=== PATIENT | male | born 1950 | race Caucasian/White ===

== ENCOUNTER → 2018-02-22 09:25 | Outpatient (CLI) | payer MEDICARE, OTHER, BC, SELFPAY ==
--- NOTE | 2018-02-22 09:33 | XR_ITS ---
XR chest 2V HISTORY: Shortness of breath ITS.REASON: SOB ORDERING PHYSICIAN: Julio Barnard PATIENT AGE: 68 years COMPARISON: 02/15/2016 FINDINGS: The cardiomediastinal silhouette and pulmonary vascularity are within normal limits. The lungs are clear without infiltrates, suspicious nodules, or pleural effusions. No acute bony abnormalities. IMPRESSION: No change with no acute finding
== END ==
PROVIDERS: PCP Family Medicine; Visit Provider Family Medicine
DX: R06.02 Shortness of breath (principal)
CPT/HCPCS: 71046

== ENCOUNTER → 2018-02-23 12:36 | Outpatient (CLI) | payer MEDICARE, OTHER, BC, SELFPAY | PROVIDERS: Family Provider Internal Medicine; PCP Family Medicine; Visit Provider Family Medicine | DX: R06.02 Shortness of breath (principal) | CPT/HCPCS: 94060; 94727; 94729 ==

== ENCOUNTER → 2020-09-29 10:42 | Outpatient (CLI) | payer MEDICARE, OTHER, SELFPAY ==
[2020-09-29 12:24] LABS: T4 (Thyroxine) 10.9 ug/dl (5.53-11.0)
[2020-09-29 12:38] LABS: Prostate Specific Ag Screen 2.7 ng/ml (0.0-4.0); Thyroid Stimulating Hormone 1.44 uIU/mL (0.465-4.68)
[2020-10-05 17:41] LABS: Testosterone,Free 5.7 pg/mL (6.6-18.1)
== END ==
PROVIDERS: Visit Provider Urology
DX: R53.83 Other fatigue (principal); Z12.5 Encounter for screening for malignant neoplasm of prostate
CPT/HCPCS: 36415; 84402; 84403; 84436; 84443; G0103

== ENCOUNTER → 2020-10-07 13:22 | Outpatient (CLI) | payer MEDICARE, OTHER, SELFPAY ==
--- NOTE | 2020-10-07 13:22 | CT_ITS ---
PROCEDURE: CT ABDOMEN PELVIS WO CON CLINICAL INDICATION: LEFT FLANK PAIN Lt flank pain [id number] COMPARISON: CT ABDPELW/O CT ABD PELVIS W/O CONTRAST from 06/10/2015 TECHNIQUE: Axial images obtained with sagittal and coronal reformats. All CT scans at the facility use one or more dose reduction, viz: automated exposure control, ma/kV adjustment per patient size (including targeted exams where dose is matched to indication, i.e. head), or iterative reconstruction technique. FINDINGS: LOWER THORAX: Stable 3 mm nodule in the left lower lobe. ABDOMEN & PELVIS: The liver, spleen, and adrenal glands and pancreas have an unremarkable unenhanced appearance. No calcified gallstones. There are small bilateral renal calculi measuring up to 4 mm in the lower pole on the right and 2 mm in the mid polar region on the left. No hydronephrosis. No ureteral calculi. No evidence of appendicitis. No intestinal obstruction or free air. Colonic diverticulosis is present but no evidence of diverticulitis. The prostate is slightly enlarged at 4.8 cm No acute bony findings IMPRESSION: Small bilateral renal calculi. No hydronephrosis. No ureteral calculi. Colonic diverticulosis but no evidence of diverticulitis. Dictated by: Ngero Ramos MD 10/08/2020 10:50 Negro Ramos MD in [place] 10/08/2020 10:50
== END ==
PROVIDERS: Visit Provider Urology
DX: R10.9 Unspecified abdominal pain (principal)
CPT/HCPCS: 74176

== ENCOUNTER 2021-02-23 13:00 | Outpatient (RCR) | payer MEDICARE, OTHER, SELFPAY ==
--- NOTE | 2021-02-18 11:24 | HMH.PTOPEV ---
PT Outpatient Evaluation Rehab PT Outpatient Evaluation Start: 02/18/21 10:50 Freq: Status: Active Protocol: Document 02/18/21 10:50 [email or web address] (Rec: 02/18/21 11:24 PHORNE [id number]) Electronically Signed By Monico Combs, PT 02/18/21 10:50 Outpatient Therapy Subjective History Subjective History Pt is 71 year old male who presents with c/o chronic headaches over last 5 years, intermittent. He reports headaches become much more severe with coughing fits. Pt with c/o neck pain intermittently for many years, but no c/o UE radiculopathy. Pt reports no significant medical hx. Pt reports maternal brain CA. Eval completed by Sandra Younger, SPT . Chief Complaint Pain Symptom Type Ache Symptoms Relieved By Rest/Positioning Symptoms Aggravated By Bending/Stooping,Sneeze/ Coughing Prior Functional Limitations None Current Functional Limitations Bending/Stooping Symptom Description Intermittent Level of pain today (0-10) 1 Pain scale - at its best (0-10) 0 Pain scale - at its worst (0-10) 8 Cervical Eval Palpation Cervical Muscles R CT Junction,L CT Junction,R Upper Trapezius,L Upper Trapezius Cervical/Thoracic Palpation Findings Tenderness Posture Head/C-Spine Posture Sitting Position Neutral Position Flexibility Deficits Upper Trapezius Muscle Length (R) Moderate Tightness,(L) Moderate Tightness Passive Joint Mobility Cervical PIVM Dec: R C2/3 L C2/3 R C3/4 L C3/4 R C4/5 L C4/5 R C5/6 L C5/6 R C6/7 L C6/7 WNL: R OA L OA R AA L AA R C7/T1 L C7/T1 AROM Cervical Spine Extension Active Range of 30 Motion (degrees) Cervical Spine Flexion Active Range of 55 Motion (degrees) Cervical Spine Rig
== END 2021-02-23 13:05 | disposition home or self-care (01) ==
LOC: PT 13:00
PROVIDERS: PCP Internal Medicine; Visit Provider Specialist
DX: R51.9 Headache, unspecified (principal); G89.29 Other chronic pain; M54.2 Cervicalgia
CPT/HCPCS: 97010; 97014; 97110; 97140; 97163; G0283

== ENCOUNTER → 2021-02-23 14:28 | Outpatient (CLI) | payer MEDICARE, OTHER, SELFPAY | PROVIDERS: PCP Internal Medicine; Visit Provider Internal Medicine | DX: Z20.822 Contact with and (suspected) exposure to COVID-19 (principal); U07.1 COVID-19 | CPT/HCPCS: U0003 ==

== ENCOUNTER 2021-03-03 09:12 | Emergency (ER) | payer MEDICARE, OTHER, SELFPAY ==
[2021-03-03 10:01] VITALS: BP 140/79; PULSE 85; RESP 19; TEMP 36.8; O2SAT 98; BMI 27.1
--- NOTE | 2021-03-03 10:08 | HMH.EDUTC ---
[facility] Disposition Clinical Impression: Encounter for laboratory testing for COVID-19 virus Disposition: Home, Self-Care Condition on Discharge: Good Instructions: DI for COVID-19 (Suspected or Confirmed ), Preventing the Spread of Coronavirus Discharge Instructions Additional Instructions: *Monitor Temp, Over the counter Motrin or Tylenol as directed/as needed Tylenol every 4 hours and Motrin every 6 hours (as long as your family doctor has told you that you can take it) for fever or pain. and straight to ER if unable to lower temp less than 101.0 after medication given Follow up IMMEDIATELY for new or worsening symptoms or no Noticeable improvement over the next 48-72 hours. 911 for difficulty breathing or swallowing You were tested for today for COVID19 your test result should be back in the next 24-48 hours, you was given instructions on how to log on the [facility] portal for your results. If you do not have internet or access you may call the [facility]. You was given a handout with instructions for Self Quarantine and Self isolation for while you wait on test results and what to do if they are positive If you are positive the Health Dept will be contacting you also Make sure to take your Vitamins Vit. C Vit D and Zinc if you can take them Referrals: Alireza Brizuela [Primary Care Provider] - As needed Time of Disposition: 10:12 Medical Decision Making - Isauro Inquiry Pt receiving controlled substance: No Isauro was queried for this patient: No Vital Signs: 03/03/21 10:01 Temperature 98.2 F Temperature Source Oral Pulse Rate [Right] 85 Respiratory Rate 19 Blood Pressure [Right Arm] 140/79 Blood Pressure Mean [Right Arm] 99 02 Sat by Pulse Oximetry 98 Orders (Tests/Meds): ORDERS Category Date Time Status Covid-19 Nasal PCR ([facility]) Routine Lab 03/03/21 09:50 Received [facility] HPI - General Stated complaint: covid test Time Seen by Provider: 03/03/21 10:08 Mode of Arrival: Ambulatory Description of Symptoms (Recalled from Triage Doc. by RN): COVID 19 TEST, TESTED LAST MONDAY, WANTS RETEST HEENT Symptoms (Recalled from RN notes): No Resp Symptoms (Recalled from RN notes): No Skin Symptoms (Recalled from RN notes): No MS Symptoms (Recalled from RN notes): No Functional Status (Recalled from RN notes): WNL - History of Present Illness Provider Complaint: Patient states that the he has been fully vaccinated and he tested positive for COVID last week but was just feeling a little tired and that is why they tested him But not had any other symptoms and no longer feeling tired States that he wants to get retested due to daughter just had surgery and he wanted to be able to help her - Related Data Home Medications Medication Instructions Recorded Confirmed No Known Home Medications 02/16/21 02/16/21 Allergies Allergy/AdvReac Type Severity Reaction Status Date / Time No Known Allergies Allergy Verified 03/03/21 10:03 - Worker's Comp Is this a Worker's Comp case?: No [facility] History - Hepatitis A Screen Drug use history?: No High risk sexual behaviors?: No History of sexually transmitted infection?: No Currently employed?: No Childcare worker?: No Do you have indoor plumbing?: Yes Do you have electricity?: Yes Attestation statement:: This patient has been screened for Hepatitis A risk factors. I have reviewed the patient's past medical history: Yes 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: Reports:: Hiatal Hernia, Hyperlipidemia, Kidney Stones, Migraine, Urinary Tract Infection Other 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: Reports: Other Comment: TORREY Other Surgeries: Yes: No Previous Surgery, Cardiac Catheterization Amputation: No Fractures: No - Social History Smoking Status: Never smoker Alcohol Intake: current Alcohol Intake Frequency:: a few times a month Substance Use Type: denies use Occupational Status: retired Housing: house Household Members: spouse Family Hx:: No significant family history ROS Obtained: Yes All
[2021-03-03 10:25] VITALS: BP 140/79; PULSE 85; RESP 19; TEMP 36.8; O2SAT 98
== END 2021-03-03 10:26 | disposition home or self-care (01) ==
PROVIDERS: Emergency Provider Nurse Practitioner; PCP Internal Medicine
DX: U07.1 COVID-19 (principal); R53.1 Weakness; E78.5 Hyperlipidemia, unspecified
CPT/HCPCS: G0463; 99202; U0003

== ENCOUNTER → 2021-03-19 11:06 | Outpatient (CLI) | payer MEDICARE, OTHER, SELFPAY ==
[2021-03-19 13:00] LABS: Blood Urea Nitrogen 15 mg/dl (9-20); Estimated Glomerular Filt Rate 60 ml/min (>60); GFR (African American) 72 ML/MIN (>60)
== END ==
PROVIDERS: Visit Provider Specialist
DX: R51.9 Headache, unspecified (principal)
CPT/HCPCS: 36415; 82565; 84520

== ENCOUNTER → 2021-03-22 09:04 | Outpatient (CLI) | payer MEDICARE, OTHER, SELFPAY ==
--- NOTE | 2021-03-22 09:05 | MR_ITS ---
PROCEDURE: MR HEAD/BRAIN WO/W CON CLINICAL INDICATION: headache with valsava manouvers COMPARISON: No exams were available for comparison TECHNIQUE: Routine multiplanar multi echo sequences are performed without gadolinium enhancement. FINDINGS: Midline shift, mass effect, intracranial hemorrhage, or hydrocephalus is evident. The cerebellopontine angles and cerebellum has an unremarkable appearance. Incidental note made of perivascular dilated spaces. Scattered T2 white matter hyperintensities are present. T2 hyperintensities are also present within the cerebellum centrally and within the gavin. These do not demonstrate restricted diffusion nor do they show enhancement. No enhancing lesions evident. The the pituitary, optic chiasm, corpus callosum, and craniocervical junction have an unremarkable appearance. Lobular area of decreased T1 and increased T2 signal is present in the right transverse sinus at 13 x 6 mm and also on the left at the junction of the transverse sinus and sigmoid sinus at 6 mm which may be due to 2 arachnoid granulations. There is a 3 x 2 cm lesion of the right maxillary sinus mostly isointense on T1 and slightly hyperintense on T2 with some heterogeneous signal. This could represent a complex retention cyst. Solid mass is not excluded. IMPRESSION: 1. No acute intracranial findings. 2. Scattered T2 white matter hyperintensity most commonly seen with ischemic gliotic change from microvascular disease. 3. 3 cm rounded lesion in the right maxillary sinus which may be due to a complex retention cyst versus a solid lesion. Follow-up suggested to confirm stability Dictated by: Negro Ramos MD 03/22/2021 15:00 Negro Ramos MD in [place] 03/22/2021 15:00
== END ==
PROVIDERS: PCP Internal Medicine; Visit Provider Specialist
DX: G89.29 Other chronic pain (principal); R51.9 Headache, unspecified
CPT/HCPCS: 70553; A9576

== ENCOUNTER → 2021-03-25 13:03 | Outpatient (CLI) | payer MEDICARE, OTHER, SELFPAY ==
--- NOTE | 2021-03-25 13:18 | XR_ITS ---
PROCEDURE: XR CERVICAL SPINE 3V CLINICAL INDICATION: neck pain COMPARISON: No exams were available for comparison FINDINGS: Normal alignment. There is degenerative disc disease at C3-C4, C4-C5, C5-C6, and C6-C7. There is 2 mm retrolisthesis of C3. Endplate osteophytes are present at C3-C5 and C6. There is mild head tilt toward the left. Facet hypertrophic changes are present C3-C7. no fracture or dislocation. No lytic or blastic change. Other findings:None. IMPRESSION: Degenerative changes as described above Dictated by: Negro Ramos MD 03/25/2021 14:15 Negro Ramos MD in [place] 03/25/2021 14:15
== END ==
PROVIDERS: PCP Internal Medicine; Visit Provider Specialist
DX: M54.2 Cervicalgia (principal)
CPT/HCPCS: 72040

== ENCOUNTER → 2021-05-10 17:07 | Outpatient (CLI) | payer MEDICARE, OTHER, SELFPAY ==
--- NOTE | 2021-05-10 17:08 | MR_ITS ---
PROCEDURE: MR CERVICAL SPINE WO CON CLINICAL INDICATION: Neck pain with C5-6 radiculopathy COMPARISON: No exams were available for comparison TECHNIQUE: Standard multiplanar multiecho sequences are performed without contrast. 3-D MIP and myelographic images are also rendered and reviewed FINDINGS: There is normal alignment. Craniocervical junction has an unremarkable appearance. C2-C3: There is a small broad-based central and right paracentral disc osteophyte complex causing minimal contour deformity along the anterior right aspect of the cord. C3-C4: Mild concentric bulging disc somewhat eccentric toward the right causing canal stenosis with right lateral recess narrowing and severe right-sided foraminal narrowing. C4-C5: Degenerative disc disease with bulging disc and facet hypertrophic change causing moderate to severe right-sided foraminal narrowing. C5-C6: Degenerative disc disease with bulging disc and prominent facet hypertrophic change with bilateral foraminal narrowing. C6-C7: Degenerative disc disease with bulging disc. C7-T1: Unremarkable. No acute fracture or dislocation. IMPRESSION: Multilevel cervical spondylosis. Please see above for detailed description at each level. No extruded herniated disc. Dictated by: Negro Ramos MD 05/11/2021 12:20 Negro Ramos MD in [place] 05/11/2021 12:20
== END ==
PROVIDERS: PCP Internal Medicine; Visit Provider Specialist
DX: G44.86 Cervicogenic headache (principal); G89.29 Other chronic pain
CPT/HCPCS: 72141; 76376

== ENCOUNTER 2021-05-18 08:00 | Outpatient (RCR) | payer MEDICARE, OTHER, SELFPAY ==
--- NOTE | 2021-04-13 09:50 | HMH.PTOPEV ---
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 Pt reports DE LA TORRE 's 'almost daily', with localized pain at base of skull referring s/s into and around head, as well referred s/s into chelsie. UT mm. Recent xray reveals DDD throughout C- spine. Chief Complaint Pain,Stiff Symptom Type Ache,Throb,Dull Symptoms Relieved By Rest/Positioning,Heat Symptoms Aggravated By Physical Activity,Lifting Prior Functional Limitations Reaching,Lifting,Housework Current Functional Limitations Reaching,Lifting,Housework Symptom Description Constant but Variable Level of pain today (0-10) 2 Pain scale - at its best (0-10) 1 Pain scale - at its worst (0-10) 7 Cervical Eval Palpation Cervical Muscles R Cervical Paraspinal,L Cervical Paraspinal,R Suboccipital,L Suboccipital,R Upper Trapezius,L Upper Trapezius Cervical/Thoracic Palpation Findings Tenderness,Trigger Point, Muscle Guarding Posture Head/C-Spine Posture Sitting Position Flexed Head/C-Spine Posture Standing Position Flexed Flexibility Deficits Upper Trapezius Muscle Length (R) Moderate Tightness,(L) Moderate Tightness Levaetor Scapulae Muscle Length (R) Moderate Tightness,(L) Moderate Tightness Scalene Group Muscle Length (R) Moderate Tightness,(L) Moderate Tightness Passive Joint Mobility Cervical PIVM Dec: R OA L OA R AA L AA R C2/3 L C2/3 R C3/4 L C3/4 R C4/5 L C4/5 R C5/6 L C5/6 R C6/7 L C6/7 R C7/T1
--- NOTE | 2021-05-13 08:41 | HMH.RHREAS ---
Rehab Reassessment Rehab OP Re-assessment Start: 05/13/21 08:26 Freq: Status: Active Protocol: Document 05/13/21 08:26 GALE (Rec: 05/13/21 08:41 OSVALDOROCHELLENICKY [id number]) Electronically Signed By Barry Branch, PT 05/13/21 08:26 Rehab Re-assessment Subjective Subjective Pt reports feeling about 20% better overall related to DE LA TORRE freq., and pain intensity (2-3 /10 on average w/neck pain on VAS). Pt also reports minimal compliance w/HEP Objective Objective Notes CROM: FLX 0-40, EXT 0-35, B SB 0-20, B ROT 0-35 MMT: JOSI. DELTOID 4+/5, B ELBOW,WRIST,HAND WFL TTP: JOSI. UT MM 0-4, JOSI. CERVICAL PARA, SUBOCCIP. 06/29 Assessment Progress Assessment Progressing as Expected Assessment Notes IMPROVED ROM, STRENGTH, AND TTP Patient goals met STG'S 12/30 LTG'S 08/03 Goals Not Met LTG'S 12/01 Plan Plan Pt to continue w/skilled P.T. to make further improvements in CROM, strength, TTP to aloow for optimal function. adding cervical trxn to treament plan in an effort to relieve cervical pain, pressure, cervicogenic HAs Frequency of Therapy 2-3x/wk Duration of therapy 2-4wks Time and Billing Re-Eval Time 15 Re-Eval Billing Units 0 PHYSICIAN CERTIFICATION: I certify the specified therapy services for Christian Pabon are required, authorized, and reviewed every 30 days.
== END 2021-05-18 08:05 | disposition home or self-care (01) ==
LOC: PT 08:00
PROVIDERS: PCP Internal Medicine; Visit Provider Specialist
DX: R51.9 Headache, unspecified (principal); M54.2 Cervicalgia; G89.29 Other chronic pain
CPT/HCPCS: 20560; 97012; 97014; 97035; 97110; 97140; 97163; 97164; G0283

== ENCOUNTER → 2021-06-21 11:56 | Outpatient (CLI) | payer MEDICARE, OTHER, SELFPAY ==
[2021-06-21 13:06] LABS: Alanine Aminotransferase 27 U/L (12-78); Albumin Level 3.8 g/dl (3.5-5.0); Albumin/Globulin Ratio 1.2 (1.1-1.8); Alkaline Phosphatase 78 U/L (38-126); Aspartate Amino Transferase 36 U/L (17-59); Bilirubin,Total 0.4 mg/dl (0.2-1.3); Blood Urea Nitrogen 18 mg/dl (9-20); Calcium 9.5 mg/dl (8.4-10.2); Carbon Dioxide 28 mmol/L (22.0-30.0); Chloride 102 mmol/L (98-107); Estimated Glomerular Filt Rate 60 ml/min (>60); GFR (African American) 72 ML/MIN (>60); Globulin 3.2 g/dL (1.3-3.2); Glucose 116 mg/dl (74-100); Sodium 136 mmol/L (136-145)
== END ==
PROVIDERS: Visit Provider Specialist
DX: R90.89 Other abnormal findings on diagnostic imaging of central nervous system (principal)
CPT/HCPCS: 36415; 80053

== ENCOUNTER → 2021-06-23 13:59 | Outpatient (CLI) | payer MEDICARE, OTHER, SELFPAY ==
--- NOTE | 2021-06-23 13:59 | CT_ITS ---
PROCEDURE: CT SINUS WO/W CON CLINICAL HISTORY: abnormal brain mri The COMPARISON: MR MR HEAD/BRAIN WO/W CON from 03/22/2021 TECHNIQUE: Axial images obtained with sagittal and coronal reformats. All CT scans at the facility use one or more dose reduction, viz: automated exposure control, ma/kV adjustment per patient size (including targeted exams where dose is matched to indication, i.e. head), or iterative reconstruction technique. FINDINGS: There is a slightly hyperdense rounded mass in the right maxillary sinus inferiorly. The jennings are smooth and this is not demonstrate any significant contrast enhancement. The unenhanced density is approximately 50 Hounsfield units. This had a complex appearance on the brain MRI of 03/22/2021 does not appear significantly changed. No sinus wall erosive change or bowing or sclerosis. This may represent a complex retention cyst. Frontal sinuses are unremarkable. There is minimal mucosal thickening of the ethmoid sinuses. The left maxillary sinus has an unremarkable appearance. No sinus air-fluid level. Unremarkable sphenoid sinuses. There is moderate to severe leftward nasal septal deviation involving the anterior membranous septum with narrowing of the nasal canal on the left. No acute fracture or dislocation. There are few small cervical lymph nodes. IMPRESSION: Right maxillary sinus mass may represent a complex retention cyst. No evidence of bony erosive change. Mild sinus disease. Leftward nasal septal deviation of the anterior nasal septum inferiorly with narrowing of the left nasal canal Dictated by: Negro Ramos MD 06/24/2021 13:56 Negro Ramos MD in [place] 06/24/2021 13:56
== END ==
PROVIDERS: PCP Internal Medicine; Visit Provider Specialist
DX: M54.2 Cervicalgia (principal); R93.89 Abnormal findings on diagnostic imaging of other specified body structures
CPT/HCPCS: 70488; Q9967

== ENCOUNTER → 2021-09-10 06:18 | Outpatient (CLI) | payer MEDICARE, OTHER, SELFPAY ==
--- NOTE | 2021-09-10 | CA_ITS ---
APPROVED REPORT Exam: Exercise Treadmill Technologist: Wendy Cordova, Ht: 5 ft 8 in Wt: 206 lbs BSA: 2.07 m2 HR: 68 bpm BP: 145/89 mmHg 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 Medications: XIaflex,,,,, Stress Test Details Test: Dedra HR Resting HR: 70 bpm Max Heart Rate (APMHR): 148.339119 bpm Max HR Achieved: 133 bpm Target HR (85% APMHR): 125.487173 bpm % of APMHR: 89.86 Recovery HR: 119 bpm BP Resting BP: 134/88 mmHg Max BP: 197/76 mmHg Recovery BP: 197.0/76.0 mmHg ECG Clinical Exercise duration: 07:01 min Highest Stage Achieved: Exercise capacity: 7.0 METs Stress ECG Conclusion During dedra protocol pt experinced leg fatigue and SOA. No CP noted. Test Summary REST . . . . . . . Sitting REST . . . . . . . Standing REST 15:50 0.0 0.0 70 . 134/ 88 . . Stage 1 01:00 10.0 1.7 91 . . . . Stage 1 02:00 10.0 1.7 107 . . . . Stage 1 03:00 10.0 1.7 96 . 145/ 80 . . Stage 2 01:00 12.0 2.5 116 . . . . Stage 2 02:00 12.0 2.5 113 . . . . Stage 2 . . . . . . . Stage held Stage 2 03:00 12.0 2.5 125 . 160/ 90 . . Stage 2 . . . . . . . Cardiolite injected Stage 2 04:00 12.0 2.5 130 . 160/ 90 . . Stage 2 . . . . . . . Stage resumed Stage 2 04:01 12.0 2.5 130 . 160/ 90 . Stop exercise at 07:01 RECOVERY 01:00 0.0 0.0 119 . . . . RECOVERY 02:00 0.0 0.0 97 . 197/ 76 . . RECOVERY 03:00 0.0 0.0 92 . 197/ 78 . . RECOVERY 04:00 0.0 0.0 84 . 174/ 79 . . RECOVERY 05:00 0.0 0.0 82 . 161/ 77 . . RECOVERY 06:00 0.0 0.0 82 . 147/ 72 . . RECOVERY 06:08 0.0 0.0 82 . 147/ 72 . . Electronically signed by : Siva Rangel MD 09/10/2021 12:10:51
--- NOTE | 2021-09-10 06:28 | NM_ITS ---
APPROVED REPORT Exam: Nuclear Stress Test Indication: C.P., SOB, FATIGUE Patient Location: Outpatient Stress Tech: Yenny Manuel ME Tech:Kaitlyn Curry, MARY RT(R)(N) Ht: 5 ft 11 in Wt: 200 lbs HR: 70 bpm BP: 134/88 mmHg BSA: 2.11 m2 BMI: 27.8 History: C.P., SOB, FATIGUE Procedure: Patient exercised on Adebayo protocol 7:01 minutes and sec, resting heart rate 70 bpm, resting blood pressure 134/88 mmHg, with exercise maximum heart rate achived was 133 bpm which is Greater than 85 % of the maximum predicted heart rate and blood pressure was 197/76 mmHg. Test was stopped due to FATIGUE. Patient denied any complaint of chest pain. Patient has Adequate exercise capacity, achieved 7.0 METs of workload on treadmill, the blood pressure response to exercise was Adequate. Electrocardiogram Resting electrocardiogram shows sinus rhythm, with exercise there is less than 1.[address] segment depression noted from the baseline EKG. The EKG portion of the exercise there is less than 1.[address] segment depression noted from the baseline EKG. The EKG portion of the exercise Myoview is negative for ischemia. Cardiac Stress and Resting SPECT Images: Cardiac Stress and Resting SPECT images were obtained using technetium 99m Myoview 31.1 mCi stress and 10.50 mCi at rest. Gated SPECT for analysis of segmental wall motion and calculation of ejection fraction also done. Cardiac stress and rest SPECT may show uniform myocardial activity without segmental perfusion abnormality, computer derived ejection fraction 51% with no regional wall motion abnormality, right ventricle is normal size and contractility. Conclusion: 1. The EKG portion of the exercise Myoview is negative for ischemia, patient has adequate exercise capacity achieved 7 METS of workload on treadmill, the blood pressure response to exercise was adequate, there was no exercise-induced chest discomfort. 2. No scintigraphic evidence of reversible ischemia seen, compared to ejection fraction is 51% with no regional wall motion abnormality, right ventricle is normal size and contractility. 3. Normal exercise Myoview study. Electronically signed by : Siva Rangel MD 09/10/2021 12:15:57
== END ==
PROVIDERS: PCP Internal Medicine; Visit Provider Internal Medicine
DX: R07.9 Chest pain, unspecified (principal)
CPT/HCPCS: 78452; 93017; A9502

== ENCOUNTER 2021-12-05 13:29 | Emergency (ER) | payer MEDICARE, OTHER, SELFPAY ==
[2021-12-05 13:45] VITALS: BP 138/89; PULSE 88; RESP 18; TEMP 36.8; O2SAT 98; BMI 28.4
[2021-12-05 13:51] LABS: Adenovirus,PCR Not Detected (NotDetected); Bordetella Pertussis Not Detected (NotDetected); Chlamydophila Pneumoniae, PCR Not Detected (NotDetected); Coronavirus 19, PCR Not Detected (NotDetected); Coronavirus 229E Not Detected (NotDetected); Coronavirus NL63 Not Detected (NotDetected); Coronavirus OC43 Not Detected (NotDetected); Coronovirus HKU1,PCR Not Detected (NotDetected); Human Metapneumovirus Not Detected (NotDetected); Influenza A, PCR Not Detected (NotDetected); Influenza AH1, 2009 Not Detected (NotDetected); Influenza AH1, PCR Not Detected (NotDetected); Influenza AH3,PCR Not Detected (NotDetected); Influenza B, PCR Not Detected (NotDetected); Mycoplasma Pneumoniae, PCR Not Detected (NotDetected); Parainfluenza 1, PCR Not Detected (NotDetected); Parainfluenza 2, PCR Not Detected (NotDetected); Parainfluenza 3, PCR Not Detected (NotDetected); Parainfluenza 4, PCR Not Detected (NotDetected); Respiratory Syncytial Virus Not Detected (NotDetected); Rhinovirus/Enterovirus Not Detected (NotDetected)
--- NOTE | 2021-12-05 13:57 | HMH.EDUTC ---
[facility] [place] Clinical Impression: Encounter for laboratory testing for COVID-19 virus Disposition: Home, Self-Care Condition on Discharge: Good Instructions: DI for COVID-19 (Suspected or Confirmed ), Preventing the Spread of Coronavirus Discharge Instructions Additional Instructions: *Monitor Temp, Over the counter Motrin or Tylenol as directed/as needed Tylenol every 4 hours and Motrin every 6 hours (as long as your family doctor has told you that you can take it) for fever or pain. and straight to ER if unable to lower temp less than 101.0 after medication given *Warm salt water gargles may help to soothe the throat *Throat Lozenges *Warm fluids like tea with honey may help to soothe the throat *Sleep elevated *Humidifier/Vaporizer Make sure to drink plenty of fluids Follow up IMMEDIATELY for new or worsening symptoms or no Noticeable improvement over the next 48-72 hours. 911 for difficulty breathing or swallowing You were tested for today for COVID19 your test result should be back in the next 24-48 hours, your test results will be available for viewing on the [facility] Make sure to take your Vitamins Vit. C Vit D and Zinc if you can take them Referrals: Alireza Brizuela MD [Primary Care Provider] - As needed Time of Disposition: 14:02 Medical Decision Making - Isauro Inquiry Pt receiving controlled substance: No Isauro was queried for this patient: No Vital Signs: 12/05/21 13:45 Temperature 98.2 F Temperature Source Oral Pulse Rate [Right Brachial] 88 Respiratory Rate 18 Blood Pressure [Right Arm] 138/89 Blood Pressure Mean [Right Arm] 105 Blood Pressure Source [Right Arm] Automatic Cuff Blood Pressure Position [Right Arm] Sitting 02 Sat by Pulse Oximetry 98 Oxygen Delivery Method Room Air Orders (Tests/Meds): ORDERS Category Date Time Status Full Resp Panel w/COVID ([facility]) Routine Lab 12/05/21 13:45 Re[place] [facility] [place] - General Stated complaint: covid exposure, body aches, weakness Time Seen by Provider: 12/05/21 13:57 Mode of Arrival: Ambulatory Source of Information: Patient Limitations: No Limitations Description of Symptoms (Recalled from Triage Doc. by RN): PATIENT C/O DECREASED ENERGY. HE STATES HIS TESTED POSITIVE FOR COVID ON MONDAY HEENT Symptoms (Recalled from RN notes): No Resp Symptoms (Recalled from RN notes): No Skin Symptoms (Recalled from RN notes): No MS Symptoms (Recalled from RN notes): No Functional Status (Recalled from RN notes): WNL - History of Present Illness Provider Complaint: Patient states that he has been feeling a little achy and decreased energy and on Monday his tested positive for COVID States that he was worried when he was feeling a little fatigue that he may have it too so he wanted to come in and get checked - Related Data Home Medications Medication Instructions Recorded 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 I have reviewed the patient's past medical history: Yes 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: Reports:: Hiatal Hernia, Hyperlipidemia, Kidney Stones, Migraine, Urinary Tract Infection Other 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: Reports: Other Comment: TORREY, Peyronies disease Other Surgeries: Yes: No Previous Surgery, Cardiac Catheterization, Colonoscopy Amputation: No Fractures: No - Social History Smoking Status: Never smoker Alcohol Intake: current Alcohol Intake Frequency:: a few times a month Substance Use Type: denies use Occupational Status: retired Housing: house Household Members: spouse Family Hx:: No significant family history ROS Obtained: Yes All systems revi
[2021-12-05 14:00] VITALS: BP 138/89; PULSE 88; RESP 18; TEMP 36.8; O2SAT 98
== END 2021-12-05 14:04 | disposition home or self-care (01) ==
PROVIDERS: Emergency Provider Nurse Practitioner; PCP Internal Medicine
DX: Z20.822 Contact with and (suspected) exposure to COVID-19 (principal); R53.83 Other fatigue
CPT/HCPCS: 87581; 87632; 87798; 99212; C9803; G0463; U0003; U0005

== ENCOUNTER 2022-07-01 08:00 | Outpatient (RCR) | payer MEDICARE, OTHER, SELFPAY ==
--- NOTE | 2022-05-26 09:17 | HMH.PTOPEV ---
PT Outpatient Evaluation Rehab PT Outpatient Evaluation Start: 05/26/22 08:29 Freq: Status: Active Protocol: Document 05/26/22 09:03 THONY (Rec: 05/26/22 09:16 THONY [id number]) E-signed By Chris Chan, PT Outpatient Therapy Subjective History Subjective History Patient is a 72 year old male presenting to outpatient PT with reports of cervical spine pain with associated cervicogenic headaches. Symptom onset starting approx 5 years ago that has progressively gotten worse over the past year. Most recent imaging indicates multi -level cervical spondylosis. No other comorbidities to report per patient report. Chief Complaint Pain,Stiff Symptom Type Ache,Dull Symptoms Relieved By Rest/Positioning,Heat Prior Functional Limitations None Current Functional Limitations Reaching,Lifting,Housework Symptom Description Constant but Variable Level of pain today (0-10) 3 Pain scale - at its best (0-10) 2 Pain scale - at its worst (0-10) 9 Cervical Eval Posture Head/C-Spine Posture Sitting Position Neutral Position Head/C-Spine Posture Standing Position Neutral Position Flexibility Deficits Upper Trapezius Muscle Length (R) Moderate Tightness,(L) Moderate Tightness Levaetor Scapulae Muscle Length (R) Moderate Tightness,(L) Moderate Tightness Pectoralis Minor Muscle Length (R) Moderate Tightness,(L) Moderate Tightness Passive Joint Mobility Cervical PIVM Dec: R OA L OA R AA L AA R C2/3 L C2/3 R C3/4 L C3/4 R C4/5 L C4/5 R C5/6 L C5/6 R C6/7 L C6/7 R C7/T1 L C7/T1 AROM Cervical Spine Extension Active Range of 28 Motion (degrees) Cervical Spine Flexion Active Range of 34 Motion (degrees) Cervical Spine Right Lateral Flexion 20 Active Range of Motion (degrees) Cervical Spine Left
--- NOTE | 2022-06-23 09:25 | HMH.RHREAS ---
Rehab Reassessment Rehab OP Re-assessment Start: 06/23/22 09:14 Freq: Status: Active Protocol: Document 06/23/22 09:14 THONY (Rec: 06/23/22 09:20 THONY [id number]) E-signed By Chris Chan, PT Rehab Re-assessment Subjective Subjective Patient reports 40% improvement since start of care. Objective Objective Notes AROM: flx 40; ext 26; SBr 29; SBl 36 Rr 52; Rl 51 MMT: WNL Pain: 1/10 today; 5/10 at worst over past week Neuro: WNL Assessment Progress Assessment Progressing as Expected Assessment Notes Objective improvements as noted above. No reports of radicular symptoms. Patient experiences the most relief with progression of mechanical traction. Patient would benefit from continuiing with skilled PT services in order to address functional limitations with reaching/ overhead lifting activities. Patient goals met STG's Goals Not Met LTG's Revised Goals NA Plan Plan Continue with current POC. Frequency of Therapy 2x/week Duration of therapy 4 weeks Time and Billing Re-Eval Time 16 Re-Eval Billing Units 1 PHYSICIAN CERTIFICATION: I certify the specified therapy services for Christian Pabon are required, authorized, and reviewed every 30 days.
== END 2022-07-01 08:05 | disposition home or self-care (01) ==
LOC: PT 08:00
PROVIDERS: PCP Internal Medicine; Visit Provider Internal Medicine
DX: M54.2 Cervicalgia (principal)
CPT/HCPCS: 97010; 97012; 97014; 97110; 97163; 97164; G0283

== ENCOUNTER 2022-07-02 09:06 | Emergency (ER) | payer MEDICARE, OTHER, SELFPAY ==
[2022-07-02 09:15] VITALS: BP 147/77; PULSE 98; RESP 19; TEMP 37.6; O2SAT 96; BMI 25.4
[2022-07-02 09:27] VITALS: BP 147/77; PULSE 98; RESP 19; TEMP 37.6; O2SAT 96
[2022-07-02 09:34] LABS: UTC Influenza A Antigen Negative (Negative); UTC Influenza B Antigen Negative (Negative)
--- NOTE | 2022-07-02 09:34 | EXP.UTC ---
Discharge Plan Disposition Patient Disposition: Home, Self-Care Condition: Good Prescriptions Prescriptions: No Action Xiaflex 0.9 mg recon soln INTRALESIO Referrals Follow up/Referrals: Alireza Brizuela MD [Primary Care Provider] - See instructions Activity Restrictions/Add. Instructions Additional Instructions/Restrictions: covid swab was sent to lab, call tomorrow for results. self isolate until test results are known to be negative No sign of a bacterial infection. Likely viral. Viruses can take 7-14 days to run their course. Nasal saline and bulb syringe or nose Pamela to remove nasal drainage to help with nasal congestion. Hard to eat, drink, sleep with nasal congestion so important to keep this cleaned out. Monitor temp. Tylenol or Motrin as needed for pain or fever Encourage fluids, water, Gatorade, Powerade, Pedialyte if infant/toddler/child Warm salt water gargles Warm fluids Sore throat lozenges Sleep elevated Humidifier/vaporizer Follow-up immediately for new or worsening symptoms or no noticeable improvement over the next 48-72 hours. Clinical Impressions Clinical Impression: Upper respiratory infection Instructions Patient Instructions: DI for Viral Upper Respiratory Infection -- Adult Discharge ED Provider: Celeste ([facility] [place])[facility]ancy [facility] [place] General Stated complaint: Chest congestion, wheezing, covid test Mode of Arrival: Ambulatory Source of Information: Patient Limitations: No Limitations Time Seen by Provider: 07/02/22 09:34 Description of Symptoms (Recalled from Triage Doc. 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) Smoking Status: Never smoker alcohol intake: current substance use type: denies use current occupational status: retired Travel in the last 8 weeks: None household members: spouse housing: house ROS Obtained: Yes All systems reviewed & no additional complaints except as documented Constitutional Constitutional: Reports system reviewed and no additional complaints, except as documented and Reports as per HPI Eyes Eyes: Reports system reviewed and no additional complaints, except as documented ENT Ears, Nose, Mouth, and Throat: Reports system reviewed and no additional complaints, except as documented and Reports as per HPI Cardiovascular Cardiovascular: Reports system reviewed and no additional complaints, except as documented Respiratory Respiratory: Reports system reviewed and no additional complaints, except as documented and Reports cough Musculoskeletal Musculoskeletal: Reports system reviewed and no additional complaints, except as documented Integumentary/Breasts Skin/Breast: Reports system reviewed and no additional complaints, except as documented Neurologic Neurologic: Reports system reviewed and no additional complaints, except as documented Endocrine
== END 2022-07-02 09:45 | disposition home or self-care (01) ==
PROVIDERS: Emergency Provider Nurse Practitioner Family; PCP Internal Medicine
DX: J06.9 Acute upper respiratory infection, unspecified (principal)
CPT/HCPCS: 87804; 99212; 99213; C9803; G0463; U0003; U0005

== ENCOUNTER → 2022-11-11 11:53 | Outpatient (CLI) | payer MEDICARE, OTHER, SELFPAY ==
[2022-11-11 13:05] LABS: Eosinophils # 0.2 K/mm3 (0.0-0.4); Eosinophils % 3.6 % (0.1-12.0); Hematocrit 44.3 % (42.0-52.0); Hemoglobin 14.3 g/dL (14.1-18.0); Lymphocytes # 1.9 K/mm3 (0.7-4.5); Lymphocytes % 41.1 % (10-50); Mean Corpuscular HGB Conc 32.3 g/dL (31.8-35.4); Mean Corpuscular Hemoglobin 29.3 pg (27.0-31.2); Mean Corpuscular Volume 90.7 fl (80-94); Mean Platelet Volume 8.3 fl (7.4-10.4); Monocytes # 0.3 K/mm3 (0.1-1.0); Monocytes % 7.3 % (1.7-9.3); Neutrophils # 2.2 K/mm3 (1.8-7.8); Platelet Count 301 K/mm3 (142-424); Red Blood Count 4.89 M/mm3 (4.60-6.20); Red Cell Distribution Width 14.2 % (11.5-17.5); White Blood Count 4.6 K/mm3 (4.8-10.8)
[2022-11-11 13:34] LABS: Erythrocyte Sedimentation Rate 20 mm/hr (0-20)
[2022-11-11 13:43] LABS: Anion Gap 18.2 mEq/L (5-15); Blood Urea Nitrogen 16 mg/dl (9-20); Calcium 8.4 mg/dl (8.4-10.2); Carbon Dioxide 25 mmol/L (22.0-30.0); Chloride 101 mmol/L (98-107); Estimated Glomerular Filt Rate 59 ml/min (>60); GFR (African American) 72 ML/MIN (>60); Glucose 123 mg/dl (74-100); Potassium 4.2 mmoL/L (3.5-5.1); Sodium 140 mmol/L (136-145); Uric Acid 6.9 mg/dl (3.5-8.5)
[2022-11-13 08:12] LABS: RA Latex Turbid. 10.1 IU/mL (<14.0)
== END ==
PROVIDERS: PCP Internal Medicine; Visit Provider Internal Medicine
DX: R51.9 Headache, unspecified (principal); M25.50 Pain in unspecified joint; M54.2 Cervicalgia; M15.0 Primary generalized (osteo)arthritis; G47.33 Obstructive sleep apnea (adult) (pediatric)
CPT/HCPCS: 80048; 84550; 85025; 85651; 86431

== ENCOUNTER 2022-12-06 14:15 | Emergency (ER) | payer OTHER, MEDICARE, SELFPAY ==
[2022-12-06] VITALS (9 sets, daily range): BP systolic 117–162; BP diastolic 75–102; PULSE 73–94; RESP 16–18; TEMP 36.7; O2SAT 93–97; BMI 28.1
--- NOTE | 2022-12-06 14:13 | ECG_ITS ---
APPROVED REPORT Exam: Resting ECG HR:86 bpm ECG Measurements Heart Rate 86 AXES MN 157 P 60 QRSd 102 QRS 32 QT 348 T 34 QTc 391 Conclusion SINUS RHYTHM WITH OCCASIONAL VENTRICULAR PREMATURE COMPLEXES BORDERLINE ECG UNCONFIRMED REPORT Electronically signed by : Jamie Rankin MD 12/06/2022 20:01:43
--- NOTE | 2022-12-06 14:25 | XR_ITS ---
FINAL REPORT CLINICAL HISTORY: SOA, fatigue FINDINGS: The heart size is normal. The mediastinum is within normal limits. There is no acute cardiopulmonary process. There is no pleural effusion. There is no pneumothorax. The bony thorax is intact. IMPRESSION: No acute cardiopulmonary process. Reviewed, Interpreted and Dictated by Tj Mar III, MD Transcribed by Johnny Leary Authenticated and . [facility]
--- NOTE | 2022-12-06 14:29 | HMH.EDGENADL ---
Discharge Plan Disposition Patient Disposition: Home, Self-Care Condition: Fair Chief Complaint: Shortness of Breath/Dyspnea Prescriptions Prescriptions: No Action Xiaflex 0.9 mg recon soln INTRALESIO Referrals Follow up/Referrals: Chetan Balderrama MD [Staff Physician] - 12/13/22 (palpitations and [facility] ER w/U (-) needs holter and echo) Provider,Referral, [Referring] - See instructions Clinical Impressions Clinical Impression: Palpitations Discharge ED Provider: Stepan Desouza General Adult HPI General Chief complaint: Shortness of Breath/Dyspnea Stated complaint: chest pain Time Seen by Provider: 12/06/22 15:32 Mode of Arrival: Ambulatory Source of Information: Patient Limitations: No Limitations Description of Symptoms (Recalled from ER Triage Doc. by RN): Pt reports SOA and fatigue feeling today, states did have intermittent chest pain yesterday- no cp today. Pt reports fluttering feeling in his heart reports hx of irregular heart beat. History of Present Illness HPI narrative: This is a 72-year-old white male who presents to the emergency room complaining of intermittent palpitations for the past several days. Patient denied chest pain pressure heaviness cough hemoptysis shortness of breath orthopnea or pedal edema. 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) Smoking Status: Never smoker alcohol intake: current substance use type: denies use current occupational status: retired Travel in the last 8 weeks: None household members: spouse housing: house ROS Obtained: Yes All systems reviewed & no additional complaints except as documented Skin no rash or lesions HEENT no runny nose sore throat Pulmonary no cough or shortness of breath Cardiovascular see HPI GI no abdominal pain nausea or vomiting no dysuria pyuria hematuria Musculoskeletal no neck or back pain Endocrine no polydipsia polyuria or polyphasia Psych no SI or HI The rest of the systems were reviewed and found to be negative Physical Exam Narrative Physical exam: Skin: Warm and dry HEENT: Normocephalic atraumatic extract muscles are intact pupils are equal and reactive to light Neck: Supple nontender Lungs: Clear to auscultation Heart: Regular rate and rhythm Abdomen: NABS soft nontender Extremities: No clubbing cyanosis or edema Neurologic: No unilateral weakness or numbness Lymphatic: No cervical or inguinal adenopathy Musculoskeletal: No tenderness of the dorsal or lumbar spine Psych: No SI or HI General General appearance: alert Respiratory Respiratory exam: Present normal lung sounds bilaterally Cardiovascular Cardiovascular exam: Present regular rate and normal rhythm Neurological Exam Neurological exam: Present alert Medical Decision Making Isauro Inquiry Pt receiving controlled substance: No Vital Signs: 12/06/22 14:17 12/06/22 14:30 12/06/22 15:00 Temperature 98.0 F Temperature Source Oral Pulse Rate 87 82 Pulse Rate [Right Radial] 94 H Respiratory Rate 18 16 Blood Pressure 158/92 H 117/87 Blood Pressure [Right Arm] 162/102 H Blood Pressure Mean 114 97 Blood Pressure Mean [Right Arm] 122 Blood Pressure Source [Right Arm] Automatic Cuff Blood Pressure Position [Right Arm] S
--- NOTE | 2022-12-06 14:30 | PC.NURSE ---
rad at BS for portable xray
[2022-12-06 14:38] LABS: Basophils # 0.1 K/mm3 (0-0.2); Basophils % 0.8 % (0.1-2.0); Eosinophils # 0.2 K/mm3 (0.0-0.4); Hematocrit 46.1 % (42.0-52.0); Hemoglobin 14.9 g/dL (14.1-18.0); Lymphocytes # 2.2 K/mm3 (0.7-4.5); Lymphocytes % 33.3 % (10-50); Mean Corpuscular HGB Conc 32.2 g/dL (31.8-35.4); Mean Corpuscular Hemoglobin 28.3 pg (27.0-31.2); Mean Corpuscular Volume 87.8 fl (80-94); Mean Platelet Volume 7.5 fl (7.4-10.4); Monocytes # 0.5 K/mm3 (0.1-1.0); Monocytes % 7.8 % (1.7-9.3); Neutrophils # 3.7 K/mm3 (1.8-7.8); Neutrophils % 55.1 % (37.0-80.0); Platelet Count 293 K/mm3 (142-424); Red Blood Count 5.25 M/mm3 (4.60-6.20); Red Cell Distribution Width 13.9 % (11.5-17.5); White Blood Count 6.7 K/mm3 (4.8-10.8)
[2022-12-06 14:39] LABS: Chloride 107 mmol/L (98-107)
[2022-12-06 14:40] LABS: Potassium 4.7 mmoL/L (3.5-5.1); Sodium 139 mmol/L (136-145)
[2022-12-06 14:42] LABS: Alanine Aminotransferase 34 U/L (12-78); Albumin Level 3.6 g/dl (3.5-5.0); Alkaline Phosphatase 84 U/L (38-126); Anion Gap 11.7 mEq/L (5-15); Aspartate Amino Transferase 42 U/L (17-59); Bilirubin,Total 0.4 mg/dl (0.2-1.3); Blood Urea Nitrogen 20 mg/dl (9-20); Carbon Dioxide 25 mmol/L (22.0-30.0); Creatinine Clearance Estimated 61 mL/min (50-200); Estimated Glomerular Filt Rate 50 ml/min (>60); GFR (African American) 60 ML/MIN (>60); Globulin 3.6 g/dL (1.3-3.2); Total Protein,Serum 7.2 g/dl (6.3-8.2)
[2022-12-06 14:43] LABS: Glucose 109 mg/dl (74-100); Magnesium 1.8 mg/dl (1.6-2.3)
[2022-12-06 14:58] LABS: Troponin I < 0.01 ng/ml (0.00-0.034)
[2022-12-06 16:50] LABS: Microscopic, Urine URINE MICROSCOPIC (MICROSCOPIC)
[2022-12-06 16:53] LABS: Appearance,Urine CLEAR (Clear); Bilirubin,Urine Negative (Negative); Blood, Urine Negative (Negative); Color,Urine YELLOW (Yellow); Glucose,Urine (UA) Negative (Negative); Ketones,Urine Negative (Negative); Leukocyte Esterase,Urine Negative (Negative); Nitrate,Urine Negative (Negative); Protein,Urine Negative (Negative); Specific Gravity, Urine >= 1.030 (1.005-1.030); Urobilinogen,Urine 0.2 EU/dl (0.2)
--- NOTE | 2022-12-06 17:01 | PC.NURSE ---
notified ER ua is resulted in the computer
[2022-12-06 17:20] LABS: Squamous Epithelial Cell,Urine Occasional #/hpf (0-5)
== END 2022-12-06 17:49 | disposition home or self-care (01) ==
PROVIDERS: Emergency Provider Emergency Medicine; PCP Internal Medicine
DX: R07.9 Chest pain, unspecified (principal); R00.2 Palpitations; R06.02 Shortness of breath; R53.83 Other fatigue; I49.3 Ventricular premature depolarization
CPT/HCPCS: 71045; 80053; 81001; 83735; 84484; 85025; 93005; 99285

== ENCOUNTER 2023-03-14 14:37 | Outpatient (RCR) | payer MEDICARE, OTHER, SELFPAY | END 2023-05-08 10:00 | disposition home or self-care (01) | LOC: PT 14:37 | PROVIDERS: Visit Provider Emergency Medicine | DX: I25.118 Atherosclerotic heart disease of native coronary artery with other forms of angina pectoris (principal) | CPT/HCPCS: 93798 ==

== ENCOUNTER → 2023-05-31 11:56 | Outpatient (CLI) | payer MEDICARE, OTHER, SELFPAY ==
[2023-05-31 14:31] LABS: Alanine Aminotransferase 26 U/L (12-78); Albumin Level 3.8 g/dl (3.5-5.0); Albumin/Globulin Ratio 1.2 (1.1-1.8); Alkaline Phosphatase 75 U/L (38-126); Anion Gap 10.5 mEq/L (5-15); Aspartate Amino Transferase 38 U/L (17-59); Bilirubin,Total 0.4 mg/dl (0.2-1.3); Blood Urea Nitrogen 16 mg/dl (9-20); Calcium 8.7 mg/dl (8.4-10.2); Carbon Dioxide 25 mmol/L (22.0-30.0); Chloride 106 mmol/L (98-107); Chol/HDL Ratio 7.8 (1-3.5); Cholesterol 256 mg/dl (140-200); Creatine Kinase 86 U/L (55-170); Estimated Glomerular Filt Rate 59 ml/min (>60); GFR (African American) 72 ML/MIN (>60); Globulin 3.1 g/dL (1.3-3.2); Glucose 101 mg/dl (74-100); HDL Cholesterol 33 mg/dl (40-60); Potassium 4.5 mmoL/L (3.5-5.1); Sodium 137 mmol/L (136-145); Total Protein,Serum 6.9 g/dl (6.3-8.2)
[2023-05-31 14:46] LABS: Triglycerides 660 mg/dl (30-150)
== END ==
PROVIDERS: PCP Internal Medicine; Visit Provider Internal Medicine
DX: I25.10 Atherosclerotic heart disease of native coronary artery without angina pectoris (principal); I25.41 Coronary artery aneurysm; E78.5 Hyperlipidemia, unspecified; K21.9 Gastro-esophageal reflux disease without esophagitis
CPT/HCPCS: 80053; 80061; 82550

== ENCOUNTER 2023-07-17 09:51 | Outpatient (CLI) | payer OTHER, SELFPAY ==
--- NOTE | 2023-07-17 | CA_ITS ---
APPROVED REPORT EXAM: Comprehensive 2D, Doppler, and color-flow Echocardiogram Medical And Scientific Illustrator: Mere Oliveira RT(R) Ht: 5 ft 11 in Wt: 205lbs BSA: 2.13 BP: 135/86 mmHg Indications: heart disease, CP, fatigue, HTN, SOB, CORRAL, hyperlipidemia, family history of HD, CAD. 2D Dimensions LA Volume 56.60 mL LA Volume Index 26.57 mL/m2 (M/F) 16-34 EF AP4 65.90 % GL Strain -21.9 % M-Mode Dimensions RVDd 2.66 cm (0.9-2.6) LA Diam 3.58 cm (1.9-4.0) LVDd 4.61 cm (3.5-5.7) LVDs 2.87 cm (3.5-5.7) IVSd 0.89 cm (0.6-1.1) PWd 0.80 cm (0.6-1.1) EF (Teich) 67.90% FS 37.70% EDV (Teich) 97.80 mL ESV (Teich) 31.40 mL LV Diastology E Decel Time 190 (160-240 msec) E/A Ratio 1.0 Aortic Valve TYRA Index 1.52 cm2/m2 AoV Peak Anthony. 157.0 (50-130 cm/s) AO Peak GR. 9.90 mmHg AO Mean GR. 4.80 (<5 mmHg) AO VTI 26.4 (18-25 cm) TYRA (VTI) 3.31 (2.5-4.5 cm2) Mitral Valve MV E Max Anthony. 81.0 (40-130 cm/s) MV A Velocity 83.0 (40-130 cm/s) E/A Ratio 0.97 MV PHT 56.0 ms Left Ventricle The left ventricle is normal size. The left ventricular systolic function is normal. The left ventricular ejection fraction is within the normal range. There is increased LV wall thickness. There is normal LV segmental wall motion. The left ventricular diastolic function is normal. LVEF is 60%. Right Ventricle The right ventricle is mildly dilated. The right ventricular systolic function is normal. Atria The left atrium is mildly dilated. The right atrium is mildly dilated. There is no Doppler evidence of interatrial shunt. Aortic Valve Aortic valve is mildly thickened. There is no aortic valvular stenosis. Mild aortic regurgitation. Mitral Valve The mitral valve leaflets are mildly thickened. No evidence of mitral valve stenosis. Trace mitral regurgitation. Tricuspid Valve The tricuspid valve leaflets are thin and pliable. Trace tricuspid regurgitation. RVSP there is insufficient TR jet to estimate RVSP. Pulmonic Valve The pulmonary valve is normal in structure. Trace pulmonic regurgitation. Great Vessels The aortic root is normal in size. The ascending aorta is normal in size. IVC is normal in size and collapses >50% with inspiration. Pericardium There is no pericardial effusion. Other Information Study Quality: Fair Conclusion Biventricular systolic function. Mild RV dilation. Mild biatrial dilation. Mild AI. Electronically signed by : Debibe Alonzo MD 07/18/2023 11:47:48
== END 2023-07-17 23:59 ==
LOC: RT 09:52
PROVIDERS: PCP Internal Medicine; Visit Provider Chiropractor
DX: I25.9 Chronic ischemic heart disease, unspecified (principal)
CPT/HCPCS: 93306

== ENCOUNTER 2023-09-19 10:19 | Outpatient (CLI) | payer MEDICARE, OTHER, SELFPAY ==
[2023-09-19 10:59] LABS: Basophils # 0.1 K/mm3 (0-0.2); Basophils % 1.3 % (0.1-2.0); Eosinophils # 0.1 K/mm3 (0.0-0.4); Eosinophils % 1.8 % (0.1-12.0); Hematocrit 40.1 % (42.0-52.0); Hemoglobin 14.6 g/dL (14.1-18.0); Lymphocytes # 1.9 K/mm3 (0.7-4.5); Lymphocytes % 36.9 % (10-50); Mean Corpuscular HGB Conc 36.4 g/dL (31.8-35.4); Mean Corpuscular Hemoglobin 33.3 pg (27.0-31.2); Mean Corpuscular Volume 91.6 fl (80-94); Mean Platelet Volume 7.7 fl (7.4-10.4); Monocytes # 0.3 K/mm3 (0.1-1.0); Neutrophils # 2.8 K/mm3 (1.8-7.8); Platelet Count 236 K/mm3 (142-424); Red Blood Count 4.38 M/mm3 (4.60-6.20); Red Cell Distribution Width 14.3 % (11.5-17.5); White Blood Count 5.3 K/mm3 (4.8-10.8)
[2023-09-19 11:50] LABS: Chloride 111 mmol/L (98-107); Potassium 4.1 mmoL/L (3.5-5.1); Sodium 142 mmol/L (136-145)
[2023-09-19 11:53] LABS: Alanine Aminotransferase 80 U/L (12-78); Albumin Level 3.5 g/dl (3.5-5.0); Albumin/Globulin Ratio 1.3 (1.1-1.8); Alkaline Phosphatase 79 U/L (38-126); Anion Gap 7.1 mEq/L (5-15); Aspartate Amino Transferase 60 U/L (17-59); Bilirubin,Total 0.5 mg/dl (0.2-1.3); Blood Urea Nitrogen 18 mg/dl (9-20); Carbon Dioxide 28 mmol/L (22.0-30.0); Estimated Glomerular Filt Rate 59 ml/min (>60); GFR (African American) 72 ML/MIN (>60); Globulin 2.8 g/dL (1.3-3.2); Glucose 105 mg/dl (74-100); Total Protein,Serum 6.3 g/dl (6.3-8.2)
[2023-09-19 11:54] LABS: Calcium 9.2 mg/dl (8.4-10.2)
[2023-09-19 12:25] LABS: Thyroid Stimulating Hormone 3.25 uIU/mL (0.465-4.68)
[2023-09-19 13:48] LABS: Hemoglobin A1C 6.2 % (4.0-6.0)
[2023-09-19 19:26] LABS: Vitamin B12 565 pg/mL (239-931)
[2023-09-19 19:44] LABS: Folate 7.94 ng/mL
== END 2023-09-19 23:59 ==
LOC: LAB 10:23
PROVIDERS: PCP Internal Medicine; Visit Provider Emergency Medicine
DX: I25.119 Atherosclerotic heart disease of native coronary artery with unspecified angina pectoris; E11.69 Type 2 diabetes mellitus with other specified complication; R53.83 Other fatigue; R74.01 Elevation of levels of liver transaminase levels
CPT/HCPCS: 36415; 80053; 82607; 82746; 83036; 84443; 85025

== ENCOUNTER 2023-09-20 12:00 | Outpatient (CLI) | payer MEDICARE, OTHER, SELFPAY ==
[2023-09-20 13:16] LABS: Chol/HDL Ratio 4.3 (1-3.5); Cholesterol 143 mg/dl (140-200); HDL Cholesterol 33 mg/dl (40-60); Triglycerides 190 mg/dl (30-150); VLDL Cholesterol 38 mg/dL (0-40)
[2023-09-20 13:27] LABS: Direct LDL Cholesterol 65.61 mg/dL (100-129)
== END 2023-09-20 23:59 ==
PROVIDERS: PCP Internal Medicine; Visit Provider Emergency Medicine
DX: E78.5 Hyperlipidemia, unspecified (principal); I25.119 Atherosclerotic heart disease of native coronary artery with unspecified angina pectoris; R53.83 Other fatigue; E11.9 Type 2 diabetes mellitus without complications
CPT/HCPCS: 36415; 80061

== ENCOUNTER 2024-10-31 08:55 | Outpatient (CLI) | payer MEDICARE, OTHER, SELFPAY ==
[2024-10-31 15:03] LABS: Anion Gap 9.4 mEq/L (5-15); Blood Urea Nitrogen 28 mg/dl (9-20); Calcium 9.4 mg/dl (8.4-10.2); Carbon Dioxide 28 mmol/L (22.0-30.0); Chloride 104 mmol/L (98-107); Creatine Kinase 184 U/L (55-170); Estimated Glomerular Filt Rate 54 ml/min (>60); GFR (African American) 65 ML/MIN (>60); Glucose 81 mg/dl (74-100); Magnesium 2.3 mg/dl (1.6-2.3); Potassium 4.4 mmoL/L (3.5-5.1); Sodium 137 mmol/L (136-145)
--- OUTSIDE RECORDS SUMMARY | 2024-11-01 12:39 | XMS_ITS | Continuity of Care Document ---
Author Name [facility] Organization [facility] Care Team Providers Care Screen Printing Supervisor Name Role Phone [facility] Unavailable Unavailable Problems Combined list of problems from Department of Defense and Veterans Affairs facilities. It does not include entries that were removed or entered in error. Problem Status Onset Date Problem Type Date of Resolution Comments Source Chronic Post-Traumatic Stress Disorder Following Combat ([facility] [id number]) Active 06/04/19 70 Condition PSY[facility]IATRIC N Benign prostatic hyperplasia [facility] Coronary artery disease Active Condition [place] Depression Active [facility] Exposure to potentially hazardous substance [facility] Gastroesophageal reflux disease Active [facility] Headache Active Condition [place] Mild cognitive [facility] Active [facility] Pure hypercholesterolemia Active Condition [place] Sleep apnea Active Condition [place] Diagnosis: ICD-10-CM I25.10 Athscl heart disease of [place] coronary artery w/o ang pctrs Active Diagnosis [facility] Diagnosis: ICD-10-CM F43.12 Post-traumatic stress disorder, chronic Active Diagnosis [facility] Diagnosis: ICD-10-CM R68.89 Other general symptoms and signs Active Diagnosis [facility] Diagnosis: ICD-10-CM G47.33 Obstructive sleep apnea (adult) (pediatric) Active Diagnosis [facility] Diagnosis: ICD-10-CM H35.3131 Nexdtve age-related mclr degn, bilateral, early dry stage Active Diagnosis [facility] Diagnosis: ICD-10-CM G31.84 Mild cognitive impairment of uncertain or unknown etiology [facility] Medications Combined list of outpatient medications from Department of Defense and Veterans Affairs facilities.Medications provided include 1) outpatient medications from the last 15 months, and 2) patient-reported medications. Medication Details Route Status Patient Instructions Prescription Expires Prescription Number Last Dispense Date Ordering Provider Order Date Order Qty Source ACETAMINOPH EN 325MG TAB TAKE THREE TABLETS BY MOUTH AT BEDTIME ORAL ACTIVE PRUDENCE MEJIA 2022 [place] [facility] ASPIRIN TAB TAKE 81MG BY MOUTH DAILY ORAL ACTIVE [place] CROCKER 2021 [place] CARBOXYMETH YLCELLULOSE NA 0.5% (PF) SOLN,OPH,0. 4ML PUT 1 DROP IN BOTH EYES FOUR TIMES A DAY FOR DRY EYES OPHTHA LMIC ACTIVE 11/22/2024 [id number] JESSIKA FRAUSTO K 2023 100 [place] [facility] CLOPIDOGREL BISULFATE 75MG TAB TAKE ONE TABLET BY MOUTH DAILY ORAL ACTIVE PRUDENCE MEJIA 2023 [place] [facility] CYANOCOBALA MIN TAB TAKE BY MOUTH DAILY ORAL ACTIVE PRUDENCE MEJIA 2022 [place] [facility] MIRTAZAPINE 30MG TAB TAKE ONE TABLET BY MOUTH AT BEDTIME FOR MOOD ORAL ACTIVE 03/01/2025 [id number] [place] CROCKER 2023 90 [place] MIRTAZAPINE 30MG TAB TAKE ONE TABLET BY MOUTH AT BEDTIME FOR MOOD ORAL DISCONT INUED 01/05/2024 [id number] [place] CROCKER 2022 60 [place] PANTOPRAZOL E NA 20MG TAB,EC TAKE ONE TABLET BY MOUTH ONCE A DAY 30 MINUTES BEFORE A MEAL ORAL ACTIVE PRUDENCE MEJIA 2023 [place] [facility] ROSUVASTATI N CA 5MG TAB TAKE ONE TABLET BY MOUTH AT BEDTIME ORAL ACTIVE PRUDENCE MEJIA 2023 [place] [facility] TAMSULOSIN HCL 0.4MG CAP TAKE 1 CAPSULE BY MOUTH EVERY EVENING ORAL ACTIVE PRUDENCE MEJIA 2023 [place] [facility] TURMERIC CAP/TAB TAKE BY MOUTH ORAL ACTIVE MEJIAPRUDENCE Robert 2022 [place] [facility] Immunizations Combined list of available immunizations from the Department of Defense and Veterans [facility] facilities. Immunization Series Date Given Administered By Site Reaction Lot Number CVX Code Drug Dowel Pointer Status Comments Source COVID-19 (MODERNA), MRNA, LNP-S, PF, 100 MCG/0.5ML DOSE OR 50 MCG/0.25ML DOSE 2 2020 207 complet ed HISTORICA L INFORMATI ON - FROM OTHER REGISTRY, [place] [facility] COVID-19 (MODERNA), MRNA, LNP-S, PF, 100 MCG/0.5ML DOSE OR 50 MCG/0.25ML DOSE 1 2020 207 complet ed HISTORICA L INFORMATI ON - FROM OTHER REGISTRY, [place] [facility] PNEUMOCOCCAL CONJUGATE PCV 13 1 2019 133 complet ed HISTORICA L INFORMATI ON - FROM OTHER REGISTRY, [place] [facility] Results Combined list of recent chemistry, hematology and other laboratory results from Department of Defense and Veterans Affairs, ranging from 15 months to all on record, depending upon the facility. Order Name Results Value Reference Range Date Interpretation Specimen Comments Source GLYCOHEM OGBRITNEY HEMOGLOBIN A1C/HEMOGL OBIN.TOTAL IN BLOOD BY HPLC 5.4 4.4 - 5.6 10/04 Specimen Type: BLOOD Comment: Prediabetes : 5.7%-6.4% Diabetes: >= 6.5% [facility] guidelines for A1c interpretat ion: Glycemic control targets are based on Shared Decision Making between clinicians and patients. Criteria used to establish an A1c target recommendat ion can be found at https://www .va.gov/elan lityandpati entsafety/ and include the use of result accuracy and precision(C V) of the A1c tests clinicians utilize at their own sites of practice. Values obtained from A1C measurement s can vary. For typical A1C assays, a reported value of 7.0 could actually be between 6.72 and 7.28 if measured by a reference method. A reported value of 9.0 could actually be between 8.73 and 9.27. Ref: https://ngs p.org/CAPda ta.asp. The in-house [employer] D-100 analyzer has a historical CV <= 2%. Contact the laboratory for further performance characteris tics of this assay. Ordering Provider: SURESH MEJIA Report Released Date/Time: Oct 04, 2024 10:35 AM Reporting Lab: [address] [address] Performing Lab: [place] [phone] [place] [address] CBC/PLT LEUKOCYTES [#/VOLUME] IN BLOOD BY AUTOMATED COUNT 5.0 10*3/uL 5.0 - 10.0 10/04 Specimen Type: BLOOD No comment entered. Ordering Provider: SURESH MEJIA Report Released Date/Time: Oct 04, 2024 10:35 AM Reporting Lab: [place] [phone] Performing Lab: [place] [phone] [place] [address] CBC/PLT ERYTHROCYT ES [#/VOLUME] IN BLOOD BY AUTOMATED COUNT 4.80 10*6/uL 4.6 - 6.2 10/04 Specimen Type: BLOOD No comment entered. Ordering Provider: SURESH MEJIA Report Released Date/Time: Oct 04, 2024 10:35 AM Reporting Lab: [place] [phone] Performing Lab: [place] [phone] [place] [address] CBC/PLT HEMOGLOBIN [MASS/VOLU ME] IN BLOOD 14.0 g/dL 14.0 - 18.0 10/04 Specimen Type: BLOOD No comment entered. Ordering Provider: SURESH MEJIA Report Released Date/Time: Oct 04, 2024 10:35 AM Reporting Lab: [place] [phone] Performing Lab: [address] [phone] [place] [address] CBC/PLT HEMATOCRIT [VOLUME FRACTION] OF BLOOD BY AUTOMATED COUNT 42.7 42.0 - 52.0 10/04 Specimen Type: BLOOD No comment entered. Ordering Provider: SURESH MEJIA Report Released Date/Time: Oct 04, 2024 10:35 AM Reporting Lab: [place] [phone] Performing Lab: [place] [phone] [place] [address] CBC/PLT MCV [ENTITIC VOLUME] BY AUTOMATED COUNT 89.0 fL 80.0 - 94.0 10/04 Specimen Type: BLOOD No comment entered. Ordering Provider: SURESH MEJIA Report Released Date/Time: Oct 04, 2024 10:35 AM Reporting Lab: [place] [phone] Performing Lab: [place] [phone] [place] [address] CBC/PLT MCH [ENTITIC MASS] BY AUTOMATED COUNT 29.2 pg 27.0 - 31.0 10/04 Specimen Type: BLOOD No comment entered. Ordering Provider: SURESH MEJIA Report Released Date/Time: Oct 04, 2024 10:35 AM Reporting Lab: [place] [phone] Performing Lab: [place] [phone] [place] [address] CBC/PLT MCHC [MASS/VOLU ME] BY AUTOMATED COUNT 32.8 g/dL 32.0 - 36.0 10/04 Specimen Type: BLOOD No comment entered. Ordering Provider: SURESH MEIJA Report Released Date/Time: Oct 04, 2024 10:35 AM Reporting Lab: [address] [phone] Performing Lab: [address] [phone] [place] [address] CBC/PLT PLATELETS [#/VOLUME] IN BLOOD 250 10*3/uL 150 - 450 10/04 Specimen Type: BLOOD No comment entered. Ordering Provider: SURESH MEJIA Report Released Date/Time: Oct 04, 2024 10:35 AM Reporting Lab: [address] [phone] Performing Lab: [place] [phone] [facility] CBC/PLT PLATELET MEAN VOLUME [ENTITIC VOLUME] IN BLOOD 9.2 fL 9.0 - 13.1 10/04 Specimen Type: BLOOD No comment entered. Ordering Provider: SURESH MEJIA Report Released Date/Time: Oct 04, 2024 10:35 AM Reporting Lab: [place] [phone] Performing Lab: [place] [phone] [place] [address] CBC/PLT ERYTHROCYT E DISTRIBUTI ON WIDTH [ENTITIC VOLUME] BY AUTOMATED COUNT 14.0 11.0 - 16.0 10/04 Specimen Type: BLOOD No comment entered. Ordering Provider: SURESH MEJIA Report Released Date/Time: Oct 04, 2024 10:35 AM Reporting Lab: [place] [phone] Performing Lab: [place] [phone] [facility] CBC/PLT NUCLEATED ERYTHROCYT ES/100 ERYTHROCYT ES IN BLOOD 0.0 0.0 - 0.0 10/04 Specimen Type: BLOOD No comment entered. Ordering Provider: SURESH MEJIA Report Released Date/Time: Oct 04, 2024 10:35 AM Reporting Lab: [place] [phone] Performing Lab: [place] [phone] [facility] LIPID PROFILE CHOLESTERO L [MASS/VOLU ME] IN SERUM OR PLASMA 268 mg/dL 0 - 199 10/04 H Specimen Type: PLASMA Comment: Estimated Glomerular Filtration Rate (eGFR) calculated using the 2020 Chronic Kidney Disease-Epi demiology (CKD-EPI) Collaborati on creatinine equation; units of measure are mL/min/1.73 m2. Results are only valid for adults (>=18 years) whose serum creatinine is in a steady state. eGFR calculation s are not valid for patients with acute kidney injury and for patients on dialysis. Creatinine- based estimates of kidney function may also be inaccurate in patients with reduced creatinine generation due to decreased muscle mass (e.g., malnutritio n, severe hypoalbumin emia, sarcopenia, chronic neuromuscul ar disease, amputations , severe heart failure or liver disease) and in patients with increased creatinine generation due to increased muscle mass (e.g., muscle builders, anabolic steroids) or increased dietary intake. As drug clearance is proportiona l to total GFR and not GFR indexed to body surface area (BSA), in individuals with a BSA substantial ly different than 1.73 m2, drug dosing should be based on the reported eGFR value de-indexed from BSA by multiplying by the individual' s BSA and dividing by 1.73. CKD is diagnosed based on abnormaliti es of kidney structure or function, present for >3 months, with implication s for health and disease. CKD is classified and staged based on cause, eGFR and albuminuria (quantified as urine albumin to creatinine ratio). An eGFR >60 mL/min/1.73 m2 in the absence of increased urine albumin excretion or structural abnormaliti es does not represent CKD. eGFR CKD Interpretat ion (mL/min/1.7 3 m2) stage >=90 G1 Normal 60-89 G2 Mild decrease 45-59 G3A Mild to moderate decrease 30-44 G3B Moderate to severe decrease 15-29 G4 Severe decrease <15 G5 Kidney failure Ordering Provider: SURESH MEJIA Report Released Date/Time: Oct 04, 2024 10:35 AM Reporting Lab: [facility] [address] [phone] Performing Lab: [facility] [address] [phone] [facility] LIPID PROFILE TRIGLYCERI DE [MASS/VOLU ME] IN SERUM OR PLASMA 379 mg/dL 0 - 149 10/04 H Specimen Type: PLASMA Comment: Estimated Glomerular Filtration Rate (eGFR) calculated using the 2020 Chronic Kidney Disease-Epi demiology (CKD-EPI) Collaborati on creatinine equation; units of measure are mL/min/1.73 m2. Results are only valid for adults (>=18 years) whose serum creatinine is in a steady state. eGFR calculation s are not valid for patients with acute kidney injury and for patients on dialysis. Creatinine- based estimates of kidney function may also be inaccurate in patients with reduced creatinine generation due to decreased muscle mass (e.g., malnutritio n, severe hypoalbumin emia, sarcopenia, chronic neuromuscul ar disease, amputations , severe heart failure or liver disease) and in patients with increased creatinine generation due to increased muscle mass (e.g., muscle builders, anabolic steroids) or increased dietary intake. As drug clearance is proportiona l to total GFR and not GFR indexed to body surface area (BSA), in individuals with a BSA substantial ly different than 1.73 m2, drug dosing should be based on the reported eGFR value de-indexed from BSA by multiplying by the individual' s BSA and dividing by 1.73. CKD is diagnosed based on abnormaliti es of kidney structure or function, present for >3 months, with implication s for health and disease. CKD is classified and staged based on cause, eGFR and albuminuria (quantified as urine albumin to creatinine ratio). An eGFR >60 mL/min/1.73 m2 in the absence of increased urine albumin excretion or structural abnormaliti es does not represent CKD. eGFR CKD Interpretat ion (mL/min/1.7 3 m2) stage >=90 G1 Normal 60-89 G2 Mild decrease 45-59 G3A Mild to moderate decrease 30-44 G3B Moderate to severe decrease 15-29 G4 Severe decrease <15 G5 Kidney failure Ordering Provider: SURESH MEJIA Report Released Date/Time: Oct 04, 2024 10:35 AM Reporting Lab: [facility] [address] [phone] Performing Lab: [facility] [address] [phone] [facility] LIPID PROFILE CHOLESTERO L IN HDL [MASS/VOLU ME] IN SERUM OR PLASMA 38 mg/dL 40 - 69 10/04 L Specimen Type: PLASMA Comment: Estimated Glomerular Filtration Rate (eGFR) calculated using the 2020 Chronic Kidney Disease-Epi demiology (CKD-EPI) Collaborati on creatinine equation; units of measure are mL/min/1.73 m2. Results are only valid for adults (>=18 years) whose serum creatinine is in a steady state. eGFR calculation s are not valid for patients with acute kidney injury and for patients on dialysis. Creatinine- based estimates of kidney function may also be inaccurate in patients with reduced creatinine generation due to decreased muscle mass (e.g., malnutritio n, severe hypoalbumin emia, sarcopenia, chronic neuromuscul ar disease, amputations , severe heart failure or liver disease) and in patients with increased creatinine generation due to increased muscle mass (e.g., muscle builders, anabolic steroids) or increased dietary intake. As drug clearance is proportiona l to total GFR and not GFR indexed to body surface area (BSA), in individuals with a BSA substantial ly different than 1.73 m2, drug dosing should be based on the reported eGFR value de-indexed from BSA by multiplying by the individual' s BSA and dividing by 1.73. CKD is diagnosed based on abnormaliti es of kidney structure or function, present for >3 months, with implication s for health and disease. CKD is classified and staged based on cause, eGFR and albuminuria (quantified as urine albumin to creatinine ratio). An eGFR >60 mL/min/1.73 m2 in the absence of increased urine albumin excretion or structural abnormaliti es does not represent CKD. eGFR CKD Interpretat ion (mL/min/1.7 3 m2) stage >=90 G1 Normal 60-89 G2 Mild decrease 45-59 G3A Mild to moderate decrease 30-44 G3B Moderate to severe decrease 15-29 G4 Severe decrease <15 G5 Kidney failure Ordering Provider: SURESH EMJIA Report Released Date/Time: Oct 04, 2024 10:35 AM Reporting Lab: [facility] [address] [phone] Performing Lab: [facility] [address] [phone] [facility] LIPID PROFILE CHOLESTERO L IN LDL [MASS/VOLU ME] IN SERUM OR PLASMA BY DIRECT ASSAY 147 mg/dL 0 - 100 10/04 H Specimen Type: PLASMA Comment: Estimated Glomerular Filtration Rate (eGFR) calculated using the 2020 Chronic Kidney Disease-Epi demiology (CKD-EPI) Collaborati on creatinine equation; units of measure are mL/min/1.73 m2. Results are only valid for adults (>=18 years) whose serum creatinine is in a steady state. eGFR calculation s are not valid for patients with acute kidney injury and for patients on dialysis. Creatinine- based estimates of kidney function may also be inaccurate in patients with reduced creatinine generation due to decreased muscle mass (e.g., malnutritio n, severe hypoalbumin emia, sarcopenia, chronic neuromuscul ar disease, amputations , severe heart failure or liver disease) and in patients with increased creatinine generation due to increased muscle mass (e.g., muscle builders, anabolic steroids) or increased dietary intake. As drug clearance is proportiona l to total GFR and not GFR indexed to body surface area (BSA), in individuals with a BSA substantial ly different than 1.73 m2, drug dosing should be based on the reported eGFR value de-indexed from BSA by multiplying by the individual' s BSA and dividing by 1.73. CKD is diagnosed based on abnormaliti es of kidney structure or function, present for >3 months, with implication s for health and disease. CKD is classified and staged based on cause, eGFR and albuminuria (quantified as urine albumin to creatinine ratio). An eGFR >60 mL/min/1.73 m2 in the absence of increased urine albumin excretion or structural abnormaliti es does not represent CKD. eGFR CKD Interpretat ion (mL/min/1.7 3 m2) stage >=90 G1 Normal 60-89 G2 Mild decrease 45-59 G3A Mild to moderate decrease 30-44 G3B Moderate to severe decrease 15-29 G4 Severe decrease <15 G5 Kidney failure Ordering Provider: SURESH MEJIA Report Released Date/Time: Oct 04, 2024 10:35 AM Reporting Lab: [address] [phone] Performing Lab: [address] [phone] [facility] 25-OH VITAMIN D 25-HYDROXY VITAMIN D3 [MASS/VOLU ME] IN SERUM OR PLASMA 50.8 ng/mL 20.0 - 50.0 10/04 H Specimen Type: SERUM Comment: The National Institutes of Health (NIH) recommendat ions state: <12 ng/mL - Deficient 20 - 50 ng/mL - Optimal Levels - adequate for most people. >50 ng/mL - Increased risk of hypercalciu glen/other health problems - clinical correlation is required. These reference ranges represent clinical decision values rather than population- based reference values. Ordering Provider: SURESH MEJIA Report Released Date/Time: Oct 04, 2024 10:35 AM Reporting Lab: [address] [phone] Performing Lab: [address] [phone] [facility] B12 VITAMIN COBALAMIN (VITAMIN B12) [MASS/VOLU ME] IN SERUM OR PLASMA 449 pg/mL 213 - 816 10/04 Specimen Type: PLASMA Comment: Estimated Glomerular Filtration Rate (eGFR) calculated using the 2020 Chronic Kidney Disease-Epi demiology (CKD-EPI) Collaborati on creatinine equation; units of measure are mL/min/1.73 m2. Results are only valid for adults (>=18 years) whose serum creatinine is in a steady state. eGFR calculation s are not valid for patients with acute kidney injury and for patients on dialysis. Creatinine- based estimates of kidney function may also be inaccurate in patients with reduced creatinine generation due to decreased muscle mass (e.g., malnutritio n, severe hypoalbumin emia, sarcopenia, chronic neuromuscul ar disease, amputations , severe heart failure or liver disease) and in patients with increased creatinine generation due to increased muscle mass (e.g., muscle builders, anabolic steroids) or increased dietary intake. As drug clearance is proportiona l to total GFR and not GFR indexed to body surface area (BSA), in individuals with a BSA substantial ly different than 1.73 m2, drug dosing should be based on the reported eGFR value de-indexed from BSA by multiplying by the individual' s BSA and dividing by 1.73. CKD is diagnosed based on abnormaliti es of kidney structure or function, present for >3 months, with implication s for health and disease. CKD is classified and staged based on cause, eGFR and albuminuria (quantified as urine albumin to creatinine ratio). An eGFR >60 mL/min/1.73 m2 in the absence of increased urine albumin excretion or structural abnormaliti es does not represent CKD. eGFR CKD Interpretat ion (mL/min/1.7 3 m2) stage >=90 G1 Normal 60-89 G2 Mild decrease 45-59 G3A Mild to moderate decrease 30-44 G3B Moderate to severe decrease 15-29 G4 Severe decrease <15 G5 Kidney failure Vitamin B12 test may not yield results when protein level of sample is too elevated. Ordering Provider: SURESH MEJIA Report Released Date/Time: Oct 04, 2024 10:35 AM Reporting Lab: [facility] [address] [address] Performing Lab: [facility] [address] [address] [facility] TSH THYROTROPI N [UNITS/VOL UME] IN SERUM OR PLASMA 1.7320 m[IU]/mL 0.3500 - 4.9400 10/04 Specimen Type: PLASMA Comment: Estimated Glomerular Filtration Rate (eGFR) calculated using the 2020 Chronic Kidney Disease-Epi demiology (CKD-EPI) Collaborati on creatinine equation; units of measure are mL/min/1.73 m2. Results are only valid for adults (>=18 years) whose serum creatinine is in a steady state. eGFR calculation s are not valid for patients with acute kidney injury and for patients on dialysis. Creatinine- based estimates of kidney function may also be inaccurate in patients with reduced creatinine generation due to decreased muscle mass (e.g., malnutritio n, severe hypoalbumin emia, sarcopenia, chronic neuromuscul ar disease, amputations , severe heart failure or liver disease) and in patients with increased creatinine generation due to increased muscle mass (e.g., muscle builders, anabolic steroids) or increased dietary intake. As drug clearance is proportiona l to total GFR and not GFR indexed to body surface area (BSA), in individuals with a BSA substantial ly different than 1.73 m2, drug dosing should be based on the reported eGFR value de-indexed from BSA by multiplying by the individual' s BSA and dividing by 1.73. CKD is diagnosed based on abnormaliti es of kidney structure or function, present for >3 months, with implication s for health and disease. CKD is classified and staged based on cause, eGFR and albuminuria (quantified as urine albumin to creatinine ratio). An eGFR >60 mL/min/1.73 m2 in the absence of increased urine albumin excretion or structural abnormaliti es does not represent CKD. eGFR CKD Interpretat ion (mL/min/1.7 3 m2) stage >=90 G1 Normal 60-89 G2 Mild decrease 45-59 G3A Mild to moderate decrease 30-44 G3B Moderate to severe decrease 15-29 G4 Severe decrease <15 G5 Kidney failure Ordering Provider: SURESH MEJIA Report Released Date/Time: Oct 04, 2024 10:35 AM Reporting Lab: [facility] [address] [address] Performing Lab: [facility] [address] [address] [facility] PANEL 5 CREATININE [MASS/VOLU ME] IN SERUM OR PLASMA 1.24 mg/dL 0.72 - 1.25 10/04 Specimen Type: PLASMA Comment: Estimated Glomerular Filtration Rate (eGFR) calculated using the 2020 Chronic Kidney Disease-Epi demiology (CKD-EPI) Collaborati on creatinine equation; units of measure are mL/min/1.73 m2. Results are only valid for adults (>=18 years) whose serum creatinine is in a steady state. eGFR calculation s are not valid for patients with acute kidney injury and for patients on dialysis. Creatinine- based estimates of kidney function may also be inaccurate in patients with reduced creatinine generation due to decreased muscle mass (e.g., malnutritio n, severe hypoalbumin emia, sarcopenia, chronic neuromuscul ar disease, amputations , severe heart failure or liver disease) and in patients with increased creatinine generation due to increased muscle mass (e.g., muscle builders, anabolic steroids) or increased dietary intake. As drug clearance is proportiona l to total GFR and not GFR indexed to body surface area (BSA), in individuals with a BSA substantial ly different than 1.73 m2, drug dosing should be based on the reported eGFR value de-indexed from BSA by multiplying by the individual' s BSA and dividing by 1.73. CKD is diagnosed based on abnormaliti es of kidney structure or function, present for >3 months, with implication s for health and disease. CKD is classified and staged based on cause, eGFR and albuminuria (quantified as urine albumin to creatinine ratio). An eGFR >60 mL/min/1.73 m2 in the absence of increased urine albumin excretion or structural abnormaliti es does not represent CKD. eGFR CKD Interpretat ion (mL/min/1.7 3 m2) stage >=90 G1 Normal 60-89 G2 Mild decrease 45-59 G3A Mild to moderate decrease 30-44 G3B Moderate to severe decrease 15-29 G4 Severe decrease <15 G5 Kidney failure Ordering Provider: SURESH MEJIA Report Released Date/Time: Oct 04, 2024 10:35 AM Reporting Lab: [facility] [address] [address] Performing Lab: [facility] [address] [address] [facility] PANEL 5 UREA NITROGEN [MASS/VOLU ME] IN SERUM OR PLASMA 19 mg/dL 10/04 Specimen Type: PLASMA Comment: Estimated Glomerular Filtration Rate (eGFR) calculated using the 2020 Chronic Kidney Disease-Epi demiology (CKD-EPI) Collaborati on creatinine equation; units of measure are mL/min/1.73 m2. Results are only valid for adults (>=18 years) whose serum creatinine is in a steady state. eGFR calculation s are not valid for patients with acute kidney injury and for patients on dialysis. Creatinine- based estimates of kidney function may also be inaccurate in patients with reduced creatinine generation due to decreased muscle mass (e.g., malnutritio n, severe hypoalbumin emia, sarcopenia, chronic neuromuscul ar disease, amputations , severe heart failure or liver disease) and in patients with increased creatinine generation due to increased muscle mass (e.g., muscle builders, anabolic steroids) or increased dietary intake. As drug clearance is proportiona l to total GFR and not GFR indexed to body surface area (BSA), in individuals with a BSA substantial ly different than 1.73 m2, drug dosing should be based on the reported eGFR value de-indexed from BSA by multiplying by the individual' s BSA and dividing by 1.73. CKD is diagnosed based on abnormaliti es of kidney structure or function, present for >3 months, with implication s for health and disease. CKD is classified and staged based on cause, eGFR and albuminuria (quantified as urine albumin to creatinine ratio). An eGFR >60 mL/min/1.73 m2 in the absence of increased urine albumin excretion or structural abnormaliti es does not represent CKD. eGFR CKD Interpretat ion (mL/min/1.7 3 m2) stage >=90 G1 Normal 60-89 G2 Mild decrease 45-59 G3A Mild to moderate decrease 30-44 G3B Moderate to severe decrease 15-29 G4 Severe decrease <15 G5 Kidney failure Ordering Provider: SURESH MEJIA Report Released Date/Time: Oct 04, 2024 10:35 AM Reporting Lab: [facility] [address] [address] Performing Lab: [facility] [address] [address] [facility] PANEL 5 GLUCOSE [MASS/VOLU ME] IN SERUM OR PLASMA 94 mg/dL 74 - 100 10/04 Specimen Type: PLASMA Comment: Estimated Glomerular Filtration Rate (eGFR) calculated using the 2020 Chronic Kidney Disease-Epi demiology (CKD-EPI) Collaborati on creatinine equation; units of measure are mL/min/1.73 m2. Results are only valid for adults (>=18 years) whose serum creatinine is in a steady state. eGFR calculation s are not valid for patients with acute kidney injury and for patients on dialysis. Creatinine- based estimates of kidney function may also be inaccurate in patients with reduced creatinine generation due to decreased muscle mass (e.g., malnutritio n, severe hypoalbumin emia, sarcopenia, chronic neuromuscul ar disease, amputations , severe heart failure or liver disease) and in patients with increased creatinine generation due to increased muscle mass (e.g., muscle builders, anabolic steroids) or increased dietary intake. As drug clearance is proportiona l to total GFR and not GFR indexed to body surface area (BSA), in individuals with a BSA substantial ly different than 1.73 m2, drug dosing should be based on the reported eGFR value de-indexed from BSA by multiplying by the individual' s BSA and dividing by 1.73. CKD is diagnosed based on abnormaliti es of kidney structure or function, present for >3 months, with implication s for health and disease. CKD is classified and staged based on cause, eGFR and albuminuria (quantified as urine albumin to creatinine ratio). An eGFR >60 mL/min/1.73 m2 in the absence of increased urine albumin excretion or structural abnormaliti es does not represent CKD. eGFR CKD Interpretat ion (mL/min/1.7 3 m2) stage >=90 G1 Normal 60-89 G2 Mild decrease 45-59 G3A Mild to moderate decrease 30-44 G3B Moderate to severe decrease 15-29 G4 Severe decrease <15 G5 Kidney failure Ordering Provider: SURESH MEJIA Report Released Date/Time: Oct 04, 2024 10:35 AM Reporting Lab: [facility] [address] [address] Performing Lab: [facility] [address] [address] [facility] PANEL 5 SODIUM [MOLES/VOL UME] IN SERUM OR PLASMA 140 mmol/L 136 - 145 10/04 Specimen Type: PLASMA Comment: Estimated Glomerular Filtration Rate (eGFR) calculated using the 2020 Chronic Kidney Disease-Epi demiology (CKD-EPI) Collaborati on creatinine equation; units of measure are mL/min/1.73 m2. Results are only valid for adults (>=18 years) whose serum creatinine is in a steady state. eGFR calculation s are not valid for patients with acute kidney injury and for patients on dialysis. Creatinine- based estimates of kidney function may also be inaccurate in patients with reduced creatinine generation due to decreased muscle mass (e.g., malnutritio n, severe hypoalbumin emia, sarcopenia, chronic neuromuscul ar disease, amputations , severe heart failure or liver disease) and in patients with increased creatinine generation due to increased muscle mass (e.g., muscle builders, anabolic steroids) or increased dietary intake. As drug clearance is proportiona l to total GFR and not GFR indexed to body surface area (BSA), in individuals with a BSA substantial ly different than 1.73 m2, drug dosing should be based on the reported eGFR value de-indexed from BSA by multiplying by the individual' s BSA and dividing by 1.73. CKD is diagnosed based on abnormaliti es of kidney structure or function, present for >3 months, with implication s for health and disease. CKD is classified and staged based on cause, eGFR and albuminuria (quantified as urine albumin to creatinine ratio). An eGFR >60 mL/min/1.73 m2 in the absence of increased urine albumin excretion or structural abnormaliti es does not represent CKD. eGFR CKD Interpretat ion (mL/min/1.7 3 m2) stage >=90 G1 Normal 60-89 G2 Mild decrease 45-59 G3A Mild to moderate decrease 30-44 G3B Moderate to severe decrease 15-29 G4 Severe decrease <15 G5 Kidney failure Ordering Provider: SURESH MEJIA Report Released Date/Time: Oct 04, 2024 10:35 AM Reporting Lab: [facility] [address] [phone] Performing Lab: [facility] [address] [address] [facility] PANEL 5 POTASSIUM [MOLES/VOL UME] IN SERUM OR PLASMA 4.7 mmol/L 3.5 - 5.1 10/04 Specimen Type: PLASMA Comment: Estimated Glomerular Filtration Rate (eGFR) calculated using the 2020 Chronic Kidney Disease-Epi demiology (CKD-EPI) Collaborati on creatinine equation; units of measure are mL/min/1.73 m2. Results are only valid for adults (>=18 years) whose serum creatinine is in a steady state. eGFR calculation s are not valid for patients with acute kidney injury and for patients on dialysis. Creatinine- based estimates of kidney function may also be inaccurate in patients with reduced creatinine generation due to decreased muscle mass (e.g., malnutritio n, severe hypoalbumin emia, sarcopenia, chronic neuromuscul ar disease, amputations , severe heart failure or liver disease) and in patients with increased creatinine generation due to increased muscle mass (e.g., muscle builders, anabolic steroids) or increased dietary intake. As drug clearance is proportiona l to total GFR and not GFR indexed to body surface area (BSA), in individuals with a BSA substantial ly different than 1.73 m2, drug dosing should be based on the reported eGFR value de-indexed from BSA by multiplying by the individual' s BSA and dividing by 1.73. CKD is diagnosed based on abnormaliti es of kidney structure or function, present for >3 months, with implication s for health and disease. CKD is classified and staged based on cause, eGFR and albuminuria (quantified as urine albumin to creatinine ratio). An eGFR >60 mL/min/1.73 m2 in the absence of increased urine albumin excretion or structural abnormaliti es does not represent CKD. eGFR CKD Interpretat ion (mL/min/1.7 3 m2) stage >=90 G1 Normal 60-89 G2 Mild decrease 45-59 G3A Mild to moderate decrease 30-44 G3B Moderate to severe decrease 15-29 G4 Severe decrease <15 G5 Kidney failure Ordering Provider: SURESH MEJIA Report Released Date/Time: Oct 04, 2024 10:35 AM Reporting Lab: [facility] [address] [facility] [address] Performing Lab: [facility] [address] [facility] [address] [facility] PANEL 5 CHLORIDE [MOLES/VOL UME] IN SERUM OR PLASMA 109 mmol/L 98 - 107 10/04 H Specimen Type: PLASMA Comment: Estimated Glomerular Filtration Rate (eGFR) calculated using the 2020 Chronic Kidney Disease-Epi demiology (CKD-EPI) Collaborati on creatinine equation; units of measure are mL/min/1.73 m2. Results are only valid for adults (>=18 years) whose serum creatinine is in a steady state. eGFR calculation s are not valid for patients with acute kidney injury and for patients on dialysis. Creatinine- based estimates of kidney function may also be inaccurate in patients with reduced creatinine generation due to decreased muscle mass (e.g., malnutritio n, severe hypoalbumin emia, sarcopenia, chronic neuromuscul ar disease, amputations , severe heart failure or liver disease) and in patients with increased creatinine generation due to increased muscle mass (e.g., muscle builders, anabolic steroids) or increased dietary intake. As drug clearance is proportiona l to total GFR and not GFR indexed to body surface area (BSA), in individuals with a BSA substantial ly different than 1.73 m2, drug dosing should be based on the reported eGFR value de-indexed from BSA by multiplying by the individual' s BSA and dividing by 1.73. CKD is diagnosed based on abnormaliti es of kidney structure or function, present for >3 months, with implication s for health and disease. CKD is classified and staged based on cause, eGFR and albuminuria (quantified as urine albumin to creatinine ratio). An eGFR >60 mL/min/1.73 m2 in the absence of increased urine albumin excretion or structural abnormaliti es does not represent CKD. eGFR CKD Interpretat ion (mL/min/1.7 3 m2) stage >=90 G1 Normal 60-89 G2 Mild decrease 45-59 G3A Mild to moderate decrease 30-44 G3B Moderate to severe decrease 15-29 G4 Severe decrease <15 G5 Kidney failure Ordering Provider: SURESH MEJIA Report Released Date/Time: Oct 04, 2024 10:35 AM Reporting Lab: [facility] [address] [address] Performing Lab: [facility] [address] [facility] [address] [facility] PANEL 5 CARBON DIOXIDE, TOTAL [MOLES/VOL UME] IN SERUM OR PLASMA 28 mmol/L 22 - 10/04 Specimen Type: PLASMA Comment: Estimated Glomerular Filtration Rate (eGFR) calculated using the 2020 Chronic Kidney Disease-Epi demiology (CKD-EPI) Collaborati on creatinine equation; units of measure are mL/min/1.73 m2. Results are only valid for adults (>=18 years) whose serum creatinine is in a steady state. eGFR calculation s are not valid for patients with acute kidney injury and for patients on dialysis. Creatinine- based estimates of kidney function may also be inaccurate in patients with reduced creatinine generation due to decreased muscle mass (e.g., malnutritio n, severe hypoalbumin emia, sarcopenia, chronic neuromuscul ar disease, amputations , severe heart failure or liver disease) and in patients with increased creatinine generation due to increased muscle mass (e.g., muscle builders, anabolic steroids) or increased dietary intake. As drug clearance is proportiona l to total GFR and not GFR indexed to body surface area (BSA), in individuals with a BSA substantial ly different than 1.73 m2, drug dosing should be based on the reported eGFR value de-indexed from BSA by multiplying by the individual' s BSA and dividing by 1.73. CKD is diagnosed based on abnormaliti es of kidney structure or function, present for >3 months, with implication s for health and disease. CKD is classified and staged based on cause, eGFR and albuminuria (quantified as urine albumin to creatinine ratio). An eGFR >60 mL/min/1.73 m2 in the absence of increased urine albumin excretion or structural abnormaliti es does not represent CKD. eGFR CKD Interpretat ion (mL/min/1.7 3 m2) stage >=90 G1 Normal 60-89 G2 Mild decrease 45-59 G3A Mild to moderate decrease 30-44 G3B Moderate to severe decrease 15-29 G4 Severe decrease <15 G5 Kidney failure Ordering Provider: SURESH MEJIA Report Released Date/Time: Oct 04, 2024 10:35 AM Reporting Lab: [facility] [address] [address] Performing Lab: [facility] DE[facility] [address] [address] [facility] PANEL 5 CALCIUM [MASS/VOLU ME] IN SERUM OR PLASMA 9.2 mg/dL 8.4 - 10.2 10/04 Specimen Type: PLASMA Comment: Estimated Glomerular Filtration Rate (eGFR) calculated using the 2020 Chronic Kidney Disease-Epi demiology (CKD-EPI) Collaborati on creatinine equation; units of measure are mL/min/1.73 m2. Results are only valid for adults (>=18 years) whose serum creatinine is in a steady state. eGFR calculation s are not valid for patients with acute kidney injury and for patients on dialysis. Creatinine- based estimates of kidney function may also be inaccurate in patients with reduced creatinine generation due to decreased muscle mass (e.g., malnutritio n, severe hypoalbumin emia, sarcopenia, chronic neuromuscul ar disease, amputations , severe heart failure or liver disease) and in patients with increased creatinine generation due to increased muscle mass (e.g., muscle builders, anabolic steroids) or increased dietary intake. As drug clearance is proportiona l to total GFR and not GFR indexed to body surface area (BSA), in individuals with a BSA substantial ly different than 1.73 m2, drug dosing should be based on the reported eGFR value de-indexed from BSA by multiplying by the individual' s BSA and dividing by 1.73. CKD is diagnosed based on abnormaliti es of kidney structure or function, present for >3 months, with implication s for health and disease. CKD is classified and staged based on cause, eGFR and albuminuria (quantified as urine albumin to creatinine ratio). An eGFR >60 mL/min/1.73 m2 in the absence of increased urine albumin excretion or structural abnormaliti es does not represent CKD. eGFR CKD Interpretat ion (mL/min/1.7 3 m2) stage >=90 G1 Normal 60-89 G2 Mild decrease 45-59 G3A Mild to moderate decrease 30-44 G3B Moderate to severe decrease 15-29 G4 Severe decrease <15 G5 Kidney failure Ordering Provider: SURESH MEJIA Report Released Date/Time: Oct 04, 2024 10:35 AM Reporting Lab: [address] [address] Performing Lab: [address] [address] [facility] PANEL 5 PROTEIN [MASS/VOLU ME] IN SERUM OR PLASMA 7.4 g/dL 6.4 - 8.3 10/04 Specimen Type: PLASMA Comment: Estimated Glomerular Filtration Rate (eGFR) calculated using the 2020 Chronic Kidney Disease-Epi demiology (CKD-EPI) Collaborati on creatinine equation; units of measure are mL/min/1.73 m2. Results are only valid for adults (>=18 years) whose serum creatinine is in a steady state. eGFR calculation s are not valid for patients with acute kidney injury and for patients on dialysis. Creatinine- based estimates of kidney function may also be inaccurate in patients with reduced creatinine generation due to decreased muscle mass (e.g., malnutritio n, severe hypoalbumin emia, sarcopenia, chronic neuromuscul ar disease, amputations , severe heart failure or liver disease) and in patients with increased creatinine generation due to increased muscle mass (e.g., muscle builders, anabolic steroids) or increased dietary intake. As drug clearance is proportiona l to total GFR and not GFR indexed to body surface area (BSA), in individuals with a BSA substantial ly different than 1.73 m2, drug dosing should be based on the reported eGFR value de-indexed from BSA by multiplying by the individual' s BSA and dividing by 1.73. CKD is diagnosed based on abnormaliti es of kidney structure or function, present for >3 months, with implication s for health and disease. CKD is classified and staged based on cause, eGFR and albuminuria (quantified as urine albumin to creatinine ratio). An eGFR >60 mL/min/1.73 m2 in the absence of increased urine albumin excretion or structural abnormaliti es does not represent CKD. eGFR CKD Interpretat ion (mL/min/1.7 3 m2) stage >=90 G1 Normal 60-89 G2 Mild decrease 45-59 G3A Mild to moderate decrease 30-44 G3B Moderate to severe decrease 15-29 G4 Severe decrease <15 G5 Kidney failure Ordering Provider: SURESH MEJIA Report Released Date/Time: Oct 04, 2024 10:35 AM Reporting Lab: [facility] [address] [address] Performing Lab: [facility] [address] [address] [facility] PANEL 5 ALBUMIN [MASS/VOLU ME] IN SERUM OR PLASMA 3.6 g/dL 3.5 - 5.2 10/04 Specimen Type: PLASMA Comment: Estimated Glomerular Filtration Rate (eGFR) calculated using the 2020 Chronic Kidney Disease-Epi demiology (CKD-EPI) Collaborati on creatinine equation; units of measure are mL/min/1.73 m2. Results are only valid for adults (>=18 years) whose serum creatinine is in a steady state. eGFR calculation s are not valid for patients with acute kidney injury and for patients on dialysis. Creatinine- based estimates of kidney function may also be inaccurate in patients with reduced creatinine generation due to decreased muscle mass (e.g., malnutritio n, severe hypoalbumin emia, sarcopenia, chronic neuromuscul ar disease, amputations , severe heart failure or liver disease) and in patients with increased creatinine generation due to increased muscle mass (e.g., muscle builders, anabolic steroids) or increased dietary intake. As drug clearance is proportiona l to total GFR and not GFR indexed to body surface area (BSA), in individuals with a BSA substantial ly different than 1.73 m2, drug dosing should be based on the reported eGFR value de-indexed from BSA by multiplying by the individual' s BSA and dividing by 1.73. CKD is diagnosed based on abnormaliti es of kidney structure or function, present for >3 months, with implication s for health and disease. CKD is classified and staged based on cause, eGFR and albuminuria (quantified as urine albumin to creatinine ratio). An eGFR >60 mL/min/1.73 m2 in the absence of increased urine albumin excretion or structural abnormaliti es does not represent CKD. eGFR CKD Interpretat ion (mL/min/1.7 3 m2) stage >=90 G1 Normal 60-89 G2 Mild decrease 45-59 G3A Mild to moderate decrease 30-44 G3B Moderate to severe decrease 15-29 G4 Severe decrease <15 G5 Kidney failure Ordering Provider: SURESH MEJIA Report Released Date/Time: Oct 04, 2024 10:35 AM Reporting Lab: [facility] [address] [address] Performing Lab: [facility] [address] [address] [facility] PANEL 5 BILIRUBIN. TOTAL [MASS/VOLU ME] IN SERUM OR PLASMA 0.4 mg/dL 0.2 - 1.2 10/04 Specimen Type: PLASMA Comment: Estimated Glomerular Filtration Rate (eGFR) calculated using the 2020 Chronic Kidney Disease-Epi demiology (CKD-EPI) Collaborati on creatinine equation; units of measure are mL/min/1.73 m2. Results are only valid for adults (>=18 years) whose serum creatinine is in a steady state. eGFR calculation s are not valid for patients with acute kidney injury and for patients on dialysis. Creatinine- based estimates of kidney function may also be inaccurate in patients with reduced creatinine generation due to decreased muscle mass (e.g., malnutritio n, severe hypoalbumin emia, sarcopenia, chronic neuromuscul ar disease, amputations , severe heart failure or liver disease) and in patients with increased creatinine generation due to increased muscle mass (e.g., muscle builders, anabolic steroids) or increased dietary intake. As drug clearance is proportiona l to total GFR and not GFR indexed to body surface area (BSA), in individuals with a BSA substantial ly different than 1.73 m2, drug dosing should be based on the reported eGFR value de-indexed from BSA by multiplying by the individual' s BSA and dividing by 1.73. CKD is diagnosed based on abnormaliti es of kidney structure or function, present for >3 months, with implication s for health and disease. CKD is classified and staged based on cause, eGFR and albuminuria (quantified as urine albumin to creatinine ratio). An eGFR >60 mL/min/1.73 m2 in the absence of increased urine albumin excretion or structural abnormaliti es does not represent CKD. eGFR CKD Interpretat ion (mL/min/1.7 3 m2) stage >=90 G1 Normal 60-89 G2 Mild decrease 45-59 G3A Mild to moderate decrease 30-44 G3B Moderate to severe decrease 15-29 G4 Severe decrease <15 G5 Kidney failure Ordering Provider: SURESH MEJIA Report Released Date/Time: Oct 04, 2024 10:35 AM Reporting Lab: [facility] [address] [address] Performing Lab: [facility] [address] [address] [facility] PANEL 5 ASPARTATE AMINOTRANS FERASE [ENZYMATIC ACTIVITY/V OLUME] IN SERUM OR PLASMA 24 U/L 5 - 34 10/04 Specimen Type: PLASMA Comment: Estimated Glomerular Filtration Rate (eGFR) calculated using the 2020 Chronic Kidney Disease-Epi demiology (CKD-EPI) Collaborati on creatinine equation; units of measure are mL/min/1.73 m2. Results are only valid for adults (>=18 years) whose serum creatinine is in a steady state. eGFR calculation s are not valid for patients with acute kidney injury and for patients on dialysis. Creatinine- based estimates of kidney function may also be inaccurate in patients with reduced creatinine generation due to decreased muscle mass (e.g., malnutritio n, severe hypoalbumin emia, sarcopenia, chronic neuromuscul ar disease, amputations , severe heart failure or liver disease) and in patients with increased creatinine generation due to increased muscle mass (e.g., muscle builders, anabolic steroids) or increased dietary intake. As drug clearance is proportiona l to total GFR and not GFR indexed to body surface area (BSA), in individuals with a BSA substantial ly different than 1.73 m2, drug dosing should be based on the reported eGFR value de-indexed from BSA by multiplying by the individual' s BSA and dividing by 1.73. CKD is diagnosed based on abnormaliti es of kidney structure or function, present for >3 months, with implication s for health and disease. CKD is classified and staged based on cause, eGFR and albuminuria (quantified as urine albumin to creatinine ratio). An eGFR >60 mL/min/1.73 m2 in the absence of increased urine albumin excretion or structural abnormaliti es does not represent CKD. eGFR CKD Interpretat ion (mL/min/1.7 3 m2) stage >=90 G1 Normal 60-89 G2 Mild decrease 45-59 G3A Mild to moderate decrease 30-44 G3B Moderate to severe decrease 15-29 G4 Severe decrease <15 G5 Kidney failure Ordering Provider: SURESH MEJIA Report Released Date/Time: Oct 04, 2024 10:35 AM Reporting Lab: [facility] [address] [address] Performing Lab: [facility] [address] [address] [facility] PANEL 5 ALANINE AMINOTRANS FERASE [ENZYMATIC ACTIVITY/V OLUME] IN SERUM OR PLASMA 17 U/L 0 - 55 10/04 Specimen Type: PLASMA Comment: Estimated Glomerular Filtration Rate (eGFR) calculated using the 2020 Chronic Kidney Disease-Epi demiology (CKD-EPI) Collaborati on creatinine equation; units of measure are mL/min/1.73 m2. Results are only valid for adults (>=18 years) whose serum creatinine is in a steady state. eGFR calculation s are not valid for patients with acute kidney injury and for patients on dialysis. Creatinine- based estimates of kidney function may also be inaccurate in patients with reduced creatinine generation due to decreased muscle mass (e.g., malnutritio n, severe hypoalbumin emia, sarcopenia, chronic neuromuscul ar disease, amputations , severe heart failure or liver disease) and in patients with increased creatinine generation due to increased muscle mass (e.g., muscle builders, anabolic steroids) or increased dietary intake. As drug clearance is proportiona l to total GFR and not GFR indexed to body surface area (BSA), in individuals with a BSA substantial ly different than 1.73 m2, drug dosing should be based on the reported eGFR value de-indexed from BSA by multiplying by the individual' s BSA and dividing by 1.73. CKD is diagnosed based on abnormaliti es of kidney structure or function, present for >3 months, with implication s for health and disease. CKD is classified and staged based on cause, eGFR and albuminuria (quantified as urine albumin to creatinine ratio). An eGFR >60 mL/min/1.73 m2 in the absence of increased urine albumin excretion or structural abnormaliti es does not represent CKD. eGFR CKD Interpretat ion (mL/min/1.7 3 m2) stage >=90 G1 Normal 60-89 G2 Mild decrease 45-59 G3A Mild to moderate decrease 30-44 G3B Moderate to severe decrease 15-29 G4 Severe decrease <15 G5 Kidney failure Ordering Provider: SURESH MEJIA Report Released Date/Time: Oct 04, 2024 10:35 AM Reporting Lab: [facility] [address] [address] Performing Lab: [facility] [address] [address] [facility] PANEL 5 ANION GAP 3 IN SERUM OR PLASMA 3 meq/L 3 - 19 10/04 Specimen Type: PLASMA Comment: Estimated Glomerular Filtration Rate (eGFR) calculated using the 2020 Chronic Kidney Disease-Epi demiology (CKD-EPI) Collaborati on creatinine equation; units of measure are mL/min/1.73 m2. Results are only valid for adults (>=18 years) whose serum creatinine is in a steady state. eGFR calculation s are not valid for patients with acute kidney injury and for patients on dialysis. Creatinine- based estimates of kidney function may also be inaccurate in patients with reduced creatinine generation due to decreased muscle mass (e.g., malnutritio n, severe hypoalbumin emia, sarcopenia, chronic neuromuscul ar disease, amputations , severe heart failure or liver disease) and in patients with increased creatinine generation due to increased muscle mass (e.g., muscle builders, anabolic steroids) or increased dietary intake. As drug clearance is proportiona l to total GFR and not GFR indexed to body surface area (BSA), in individuals with a BSA substantial ly different than 1.73 m2, drug dosing should be based on the reported eGFR value de-indexed from BSA by multiplying by the individual' s BSA and dividing by 1.73. CKD is diagnosed based on abnormaliti es of kidney structure or function, present for >3 months, with implication s for health and disease. CKD is classified and staged based on cause, eGFR and albuminuria (quantified as urine albumin to creatinine ratio). An eGFR >60 mL/min/1.73 m2 in the absence of increased urine albumin excretion or structural abnormaliti es does not represent CKD. eGFR CKD Interpretat ion (mL/min/1.7 3 m2) stage >=90 G1 Normal 60-89 G2 Mild decrease 45-59 G3A Mild to moderate decrease 30-44 G3B Moderate to severe decrease 15-29 G4 Severe decrease <15 G5 Kidney failure Ordering Provider: SURESH MEJIA Report Released Date/Time: Oct 04, 2024 10:35 AM Reporting Lab: [facility] [address] [address] Performing Lab: [facility] [address] [address] [facility] PANEL 5 ALKALINE PHOSPHATAS E [ENZYMATIC ACTIVITY/V OLUME] IN SERUM OR PLASMA 65 U/L 40 - 150 10/04 Specimen Type: PLASMA Comment: Estimated Glomerular Filtration Rate (eGFR) calculated using the 2020 Chronic Kidney Disease-Epi demiology (CKD-EPI) Collaborati on creatinine equation; units of measure are mL/min/1.73 m2. Results are only valid for adults (>=18 years) whose serum creatinine is in a steady state. eGFR calculation s are not valid for patients with acute kidney injury and for patients on dialysis. Creatinine- based estimates of kidney function may also be inaccurate in patients with reduced creatinine generation due to decreased muscle mass (e.g., malnutritio n, severe hypoalbumin emia, sarcopenia, chronic neuromuscul ar disease, amputations , severe heart failure or liver disease) and in patients with increased creatinine generation due to increased muscle mass (e.g., muscle builders, anabolic steroids) or increased dietary intake. As drug clearance is proportiona l to total GFR and not GFR indexed to body surface area (BSA), in individuals with a BSA substantial ly different than 1.73 m2, drug dosing should be based on the reported eGFR value de-indexed from BSA by multiplying by the individual' s BSA and dividing by 1.73. CKD is diagnosed based on abnormaliti es of kidney structure or function, present for >3 months, with implication s for health and disease. CKD is classified and staged based on cause, eGFR and albuminuria (quantified as urine albumin to creatinine ratio). An eGFR >60 mL/min/1.73 m2 in the absence of increased urine albumin excretion or structural abnormaliti es does not represent CKD. eGFR CKD Interpretat ion (mL/min/1.7 3 m2) stage >=90 G1 Normal 60-89 G2 Mild decrease 45-59 G3A Mild to moderate decrease 30-44 G3B Moderate to severe decrease 15-29 G4 Severe decrease <15 G5 Kidney failure Ordering Provider: SURESH MEJIA Report Released Date/Time: Oct 04, 2024 10:35 AM Reporting Lab: [facility] [address] [address] Performing Lab: [facility] [address] [address] [facility] PANEL 5 GLOMERULAR FILTRATION RATE/1.73 SQ M.PREDICTE D [VOLUME RATE/AREA] IN SERUM, PLASMA OR BLOOD BY CREATININE -BASED FORMULA (CKD-EPI 2020) 61 10/04 Specimen Type: PLASMA Comment: Estimated Glomerular Filtration Rate (eGFR) calculated using the 2020 Chronic Kidney Disease-Epi demiology (CKD-EPI) Collaborati on creatinine equation; units of measure are mL/min/1.73 m2. Results are only valid for adults (>=18 years) whose serum creatinine is in a steady state. eGFR calculation s are not valid for patients with acute kidney injury and for patients on dialysis. Creatinine- based estimates of kidney function may also be inaccurate in patients with reduced creatinine generation due to decreased muscle mass (e.g., malnutritio n, severe hypoalbumin emia, sarcopenia, chronic neuromuscul ar disease, amputations , severe heart failure or liver disease) and in patients with increased creatinine generation due to increased muscle mass (e.g., muscle builders, anabolic steroids) or increased dietary intake. As drug clearance is proportiona l to total GFR and not GFR indexed to body surface area (BSA), in individuals with a BSA substantial ly different than 1.73 m2, drug dosing should be based on the reported eGFR value de-indexed from BSA by multiplying by the individual' s BSA and dividing by 1.73. CKD is diagnosed based on abnormaliti es of kidney structure or function, present for >3 months, with implication s for health and disease. CKD is classified and staged based on cause, eGFR and albuminuria (quantified as urine albumin to creatinine ratio). An eGFR >60 mL/min/1.73 m2 in the absence of increased urine albumin excretion or structural abnormaliti es does not represent CKD. eGFR CKD Interpretat ion (mL/min/1.7 3 m2) stage >=90 G1 Normal 60-89 G2 Mild decrease 45-59 G3A Mild to moderate decrease 30-44 G3B Moderate to severe decrease 15-29 G4 Severe decrease <15 G5 Kidney failure Ordering Provider: SURESH MEJIA Report Released Date/Time: Oct 04, 2024 10:35 AM Reporting Lab: [facility] [address] [address] Performing Lab: [facility] [address] [facility] [address] [facility] LIPID PROFILE CHOLESTERO L [MASS/VOLU ME] IN SERUM OR PLASMA 166 mg/dL 0 - 199 06/28 Specimen Type: PLASMA Comment: Estimated Glomerular Filtration Rate (eGFR) calculated using the 2020 Chronic Kidney Disease-Epi demiology (CKD-EPI) Collaborati on creatinine equation; units of measure are mL/min/1.73 m2. Results are only valid for adults (>=18 years) whose serum creatinine is in a steady state. eGFR calculation s are not valid for patients with acute kidney injury and for patients on dialysis. Creatinine- based estimates of kidney function may also be inaccurate in patients with reduced creatinine generation due to decreased muscle mass (e.g., malnutritio n, severe hypoalbumin emia, sarcopenia, chronic neuromuscul ar disease, amputations , severe heart failure or liver disease) and in patients with increased creatinine generation due to increased muscle mass (e.g., muscle builders, anabolic steroids) or increased dietary intake. As drug clearance is proportiona l to total GFR and not GFR indexed to body surface area (BSA), in individuals with a BSA substantial ly different than 1.73 m2, drug dosing should be based on the reported eGFR value de-indexed from BSA by multiplying by the individual' s BSA and dividing by 1.73. CKD is diagnosed based on abnormaliti es of kidney structure or function, present for >3 months, with implication s for health and disease. CKD is classified and staged based on cause, eGFR and albuminuria (quantified as urine albumin to creatinine ratio). An eGFR >60 mL/min/1.73 m2 in the absence of increased urine albumin excretion or structural abnormaliti es does not represent CKD. eGFR CKD Interpretat ion (mL/min/1.7 3 m2) stage >=90 G1 Normal 60-89 G2 Mild decrease 45-59 G3A Mild to moderate decrease 30-44 G3B Moderate to severe decrease 15-29 G4 Severe decrease <15 G5 Kidney failure Ordering Provider: ROHIT NOVAK Report Released Date/Time: Jun 22, 2023 03:51 PM Reporting Lab: [facility] [address] [facility] [address] Performing Lab: [facility] [address] [address] [facility] LIPID PROFILE TRIGLYCERI DE [MASS/VOLU ME] IN SERUM OR PLASMA 295 mg/dL 0 - 149 06/28 H Specimen Type: PLASMA Comment: Estimated Glomerular Filtration Rate (eGFR) calculated using the 2020 Chronic Kidney Disease-Epi demiology (CKD-EPI) Collaborati on creatinine equation; units of measure are mL/min/1.73 m2. Results are only valid for adults (>=18 years) whose serum creatinine is in a steady state. eGFR calculation s are not valid for patients with acute kidney injury and for patients on dialysis. Creatinine- based estimates of kidney function may also be inaccurate in patients with reduced creatinine generation due to decreased muscle mass (e.g., malnutritio n, severe hypoalbumin emia, sarcopenia, chronic neuromuscul ar disease, amputations , severe heart failure or liver disease) and in patients with increased creatinine generation due to increased muscle mass (e.g., muscle builders, anabolic steroids) or increased dietary intake. As drug clearance is proportiona l to total GFR and not GFR indexed to body surface area (BSA), in individuals with a BSA substantial ly different than 1.73 m2, drug dosing should be based on the reported eGFR value de-indexed from BSA by multiplying by the individual' s BSA and dividing by 1.73. CKD is diagnosed based on abnormaliti es of kidney structure or function, present for >3 months, with implication s for health and disease. CKD is classified and staged based on cause, eGFR and albuminuria (quantified as urine albumin to creatinine ratio). An eGFR >60 mL/min/1.73 m2 in the absence of increased urine albumin excretion or structural abnormaliti es does not represent CKD. eGFR CKD Interpretat ion (mL/min/1.7 3 m2) stage >=90 G1 Normal 60-89 G2 Mild decrease 45-59 G3A Mild to moderate decrease 30-44 G3B Moderate to severe decrease 15-29 G4 Severe decrease <15 G5 Kidney failure Ordering Provider: ROHIT NOVAK Report Released Date/Time: Jun 22, 2023 03:51 PM Reporting Lab: [facility] [address] [address] Performing Lab: [facility] [address] [address] [facility] LIPID PROFILE CHOLESTERO L IN HDL [MASS/VOLU ME] IN SERUM OR PLASMA 36 mg/dL 40 - 69 06/28 L Specimen Type: PLASMA Comment: Estimated Glomerular Filtration Rate (eGFR) calculated using the 2020 Chronic Kidney Disease-Epi demiology (CKD-EPI) Collaborati on creatinine equation; units of measure are mL/min/1.73 m2. Results are only valid for adults (>=18 years) whose serum creatinine is in a steady state. eGFR calculation s are not valid for patients with acute kidney injury and for patients on dialysis. Creatinine- based estimates of kidney function may also be inaccurate in patients with reduced creatinine generation due to decreased muscle mass (e.g., malnutritio n, severe hypoalbumin emia, sarcopenia, chronic neuromuscul ar disease, amputations , severe heart failure or liver disease) and in patients with increased creatinine generation due to increased muscle mass (e.g., muscle builders, anabolic steroids) or increased dietary intake. As drug clearance is proportiona l to total GFR and not GFR indexed to body surface area (BSA), in individuals with a BSA substantial ly different than 1.73 m2, drug dosing should be based on the reported eGFR value de-indexed from BSA by multiplying by the individual' s BSA and dividing by 1.73. CKD is diagnosed based on abnormaliti es of kidney structure or function, present for >3 months, with implication s for health and disease. CKD is classified and staged based on cause, eGFR and albuminuria (quantified as urine albumin to creatinine ratio). An eGFR >60 mL/min/1.73 m2 in the absence of increased urine albumin excretion or structural abnormaliti es does not represent CKD. eGFR CKD Interpretat ion (mL/min/1.7 3 m2) stage >=90 G1 Normal 60-89 G2 Mild decrease 45-59 G3A Mild to moderate decrease 30-44 G3B Moderate to severe decrease 15-29 G4 Severe decrease <15 G5 Kidney failure Ordering Provider: ROHIT NOVAK Report Released Date/Time: Jun 22, 2023 03:51 PM Reporting Lab: [facility] [address] [address] Performing Lab: [facility] [address] [address] [facility] LIPID PROFILE CHOLESTERO L IN LDL [MASS/VOLU ME] IN SERUM OR PLASMA BY DIRECT ASSAY 80 mg/dL 0 - 100 06/28 Specimen Type: PLASMA Comment: Estimated Glomerular Filtration Rate (eGFR) calculated using the 2020 Chronic Kidney Disease-Epi demiology (CKD-EPI) Collaborati on creatinine equation; units of measure are mL/min/1.73 m2. Results are only valid for adults (>=18 years) whose serum creatinine is in a steady state. eGFR calculation s are not valid for patients with acute kidney injury and for patients on dialysis. Creatinine- based estimates of kidney function may also be inaccurate in patients with reduced creatinine generation due to decreased muscle mass (e.g., malnutritio n, severe hypoalbumin emia, sarcopenia, chronic neuromuscul ar disease, amputations , severe heart failure or liver disease) and in patients with increased creatinine generation due to increased muscle mass (e.g., muscle builders, anabolic steroids) or increased dietary intake. As drug clearance is proportiona l to total GFR and not GFR indexed to body surface area (BSA), in individuals with a BSA substantial ly different than 1.73 m2, drug dosing should be based on the reported eGFR value de-indexed from BSA by multiplying by the individual' s BSA and dividing by 1.73. CKD is diagnosed based on abnormaliti es of kidney structure or function, present for >3 months, with implication s for health and disease. CKD is classified and staged based on cause, eGFR and albuminuria (quantified as urine albumin to creatinine ratio). An eGFR >60 mL/min/1.73 m2 in the absence of increased urine albumin excretion or structural abnormaliti es does not represent CKD. eGFR CKD Interpretat ion (mL/min/1.7 3 m2) stage >=90 G1 Normal 60-89 G2 Mild decrease 45-59 G3A Mild to moderate decrease 30-44 G3B Moderate to severe decrease 15-29 G4 Severe decrease <15 G5 Kidney failure Ordering Provider: ROHIT NOVAK Report Released Date/Time: Jun 22, 2023 03:51 PM Reporting Lab: [facility] [address] [address] Performing Lab: [facility] [address] [address] [facility] PANEL 5 CREATININE [MASS/VOLU ME] IN SERUM OR PLASMA 1.39 mg/dL 0.72 - 1.25 06/28 H Specimen Type: PLASMA Comment: Estimated Glomerular Filtration Rate (eGFR) calculated using the 2020 Chronic Kidney Disease-Epi demiology (CKD-EPI) Collaborati on creatinine equation; units of measure are mL/min/1.73 m2. Results are only valid for adults (>=18 years) whose serum creatinine is in a steady state. eGFR calculation s are not valid for patients with acute kidney injury and for patients on dialysis. Creatinine- based estimates of kidney function may also be inaccurate in patients with reduced creatinine generation due to decreased muscle mass (e.g., malnutritio n, severe hypoalbumin emia, sarcopenia, chronic neuromuscul ar disease, amputations , severe heart failure or liver disease) and in patients with increased creatinine generation due to increased muscle mass (e.g., muscle builders, anabolic steroids) or increased dietary intake. As drug clearance is proportiona l to total GFR and not GFR indexed to body surface area (BSA), in individuals with a BSA substantial ly different than 1.73 m2, drug dosing should be based on the reported eGFR value de-indexed from BSA by multiplying by the individual' s BSA and dividing by 1.73. CKD is diagnosed based on abnormaliti es of kidney structure or function, present for >3 months, with implication s for health and disease. CKD is classified and staged based on cause, eGFR and albuminuria (quantified as urine albumin to creatinine ratio). An eGFR >60 mL/min/1.73 m2 in the absence of increased urine albumin excretion or structural abnormaliti es does not represent CKD. eGFR CKD Interpretat ion (mL/min/1.7 3 m2) stage >=90 G1 Normal 60-89 G2 Mild decrease 45-59 G3A Mild to moderate decrease 30-44 G3B Moderate to severe decrease 15-29 G4 Severe decrease <15 G5 Kidney failure Ordering Provider: ROHIT NOVAK Report Released Date/Time: Jun 22, 2023 03:51 PM Reporting Lab: [facility] [address] [address] Performing Lab: [facility] [address] [address] [facility] PANEL 5 UREA NITROGEN [MASS/VOLU ME] IN SERUM OR PLASMA 15 mg/dL 06/28 Specimen Type: PLASMA Comment: Estimated Glomerular Filtration Rate (eGFR) calculated using the 2020 Chronic Kidney Disease-Epi demiology (CKD-EPI) Collaborati on creatinine equation; units of measure are mL/min/1.73 m2. Results are only valid for adults (>=18 years) whose serum creatinine is in a steady state. eGFR calculation s are not valid for patients with acute kidney injury and for patients on dialysis. Creatinine- based estimates of kidney function may also be inaccurate in patients with reduced creatinine generation due to decreased muscle mass (e.g., malnutritio n, severe hypoalbumin emia, sarcopenia, chronic neuromuscul ar disease, amputations , severe heart failure or liver disease) and in patients with increased creatinine generation due to increased muscle mass (e.g., muscle builders, anabolic steroids) or increased dietary intake. As drug clearance is proportiona l to total GFR and not GFR indexed to body surface area (BSA), in individuals with a BSA substantial ly different than 1.73 m2, drug dosing should be based on the reported eGFR value de-indexed from BSA by multiplying by the individual' s BSA and dividing by 1.73. CKD is diagnosed based on abnormaliti es of kidney structure or function, present for >3 months, with implication s for health and disease. CKD is classified and staged based on cause, eGFR and albuminuria (quantified as urine albumin to creatinine ratio). An eGFR >60 mL/min/1.73 m2 in the absence of increased urine albumin excretion or structural abnormaliti es does not represent CKD. eGFR CKD Interpretat ion (mL/min/1.7 3 m2) stage >=90 G1 Normal 60-89 G2 Mild decrease 45-59 G3A Mild to moderate decrease 30-44 G3B Moderate to severe decrease 15-29 G4 Severe decrease <15 G5 Kidney failure Ordering Provider: ROHIT NOVAK Report Released Date/Time: Jun 22, 2023 03:51 PM Reporting Lab: [facility] [address] [address] Performing Lab: [facility] [address] [address] [facility] PANEL 5 GLUCOSE [MASS/VOLU ME] IN SERUM OR PLASMA 100 mg/dL 74 - 100 06/28 Specimen Type: PLASMA Comment: Estimated Glomerular Filtration Rate (eGFR) calculated using the 2020 Chronic Kidney Disease-Epi demiology (CKD-EPI) Collaborati on creatinine equation; units of measure are mL/min/1.73 m2. Results are only valid for adults (>=18 years) whose serum creatinine is in a steady state. eGFR calculation s are not valid for patients with acute kidney injury and for patients on dialysis. Creatinine- based estimates of kidney function may also be inaccurate in patients with reduced creatinine generation due to decreased muscle mass (e.g., malnutritio n, severe hypoalbumin emia, sarcopenia, chronic neuromuscul ar disease, amputations , severe heart failure or liver disease) and in patients with increased creatinine generation due to increased muscle mass (e.g., muscle builders, anabolic steroids) or increased dietary intake. As drug clearance is proportiona l to total GFR and not GFR indexed to body surface area (BSA), in individuals with a BSA substantial ly different than 1.73 m2, drug dosing should be based on the reported eGFR value de-indexed from BSA by multiplying by the individual' s BSA and dividing by 1.73. CKD is diagnosed based on abnormaliti es of kidney structure or function, present for >3 months, with implication s for health and disease. CKD is classified and staged based on cause, eGFR and albuminuria (quantified as urine albumin to creatinine ratio). An eGFR >60 mL/min/1.73 m2 in the absence of increased urine albumin excretion or structural abnormaliti es does not represent CKD. eGFR CKD Interpretat ion (mL/min/1.7 3 m2) stage >=90 G1 Normal 60-89 G2 Mild decrease 45-59 G3A Mild to moderate decrease 30-44 G3B Moderate to severe decrease 15-29 G4 Severe decrease <15 G5 Kidney failure Ordering Provider: ROHIT NOVAK Report Released Date/Time: Jun 22, 2023 03:51 PM Reporting Lab: [facility] [address] [address] Performing Lab: [facility] [address] [address] [facility] PANEL 5 SODIUM [MOLES/VOL UME] IN SERUM OR PLASMA 140 mmol/L 136 - 145 06/28 Specimen Type: PLASMA Comment: Estimated Glomerular Filtration Rate (eGFR) calculated using the 2020 Chronic Kidney Disease-Epi demiology (CKD-EPI) Collaborati on creatinine equation; units of measure are mL/min/1.73 m2. Results are only valid for adults (>=18 years) whose serum creatinine is in a steady state. eGFR calculation s are not valid for patients with acute kidney injury and for patients on dialysis. Creatinine- based estimates of kidney function may also be inaccurate in patients with reduced creatinine generation due to decreased muscle mass (e.g., malnutritio n, severe hypoalbumin emia, sarcopenia, chronic neuromuscul ar disease, amputations , severe heart failure or liver disease) and in patients with increased creatinine generation due to increased muscle mass (e.g., muscle builders, anabolic steroids) or increased dietary intake. As drug clearance is proportiona l to total GFR and not GFR indexed to body surface area (BSA), in individuals with a BSA substantial ly different than 1.73 m2, drug dosing should be based on the reported eGFR value de-indexed from BSA by multiplying by the individual' s BSA and dividing by 1.73. CKD is diagnosed based on abnormaliti es of kidney structure or function, present for >3 months, with implication s for health and disease. CKD is classified and staged based on cause, eGFR and albuminuria (quantified as urine albumin to creatinine ratio). An eGFR >60 mL/min/1.73 m2 in the absence of increased urine albumin excretion or structural abnormaliti es does not represent CKD. eGFR CKD Interpretat ion (mL/min/1.7 3 m2) stage >=90 G1 Normal 60-89 G2 Mild decrease 45-59 G3A Mild to moderate decrease 30-44 G3B Moderate to severe decrease 15-29 G4 Severe decrease <15 G5 Kidney failure Ordering Provider: ROHIT NOVAK Report Released Date/Time: Jun 22, 2023 03:51 PM Reporting Lab: [facility] [address] [address] Performing Lab: A[address] [address] [facility] PANEL 5 POTASSIUM [MOLES/VOL UME] IN SERUM OR PLASMA 4.3 mmol/L 3.5 - 5.1 06/28 Specimen Type: PLASMA Comment: Estimated Glomerular Filtration Rate (eGFR) calculated using the 2020 Chronic Kidney Disease-Epi demiology (CKD-EPI) Collaborati on creatinine equation; units of measure are mL/min/1.73 m2. Results are only valid for adults (>=18 years) whose serum creatinine is in a steady state. eGFR calculation s are not valid for patients with acute kidney injury and for patients on dialysis. Creatinine- based estimates of kidney function may also be inaccurate in patients with reduced creatinine generation due to decreased muscle mass (e.g., malnutritio n, severe hypoalbumin emia, sarcopenia, chronic neuromuscul ar disease, amputations , severe heart failure or liver disease) and in patients with increased creatinine generation due to increased muscle mass (e.g., muscle builders, anabolic steroids) or increased dietary intake. As drug clearance is proportiona l to total GFR and not GFR indexed to body surface area (BSA), in individuals with a BSA substantial ly different than 1.73 m2, drug dosing should be based on the reported eGFR value de-indexed from BSA by multiplying by the individual' s BSA and dividing by 1.73. CKD is diagnosed based on abnormaliti es of kidney structure or function, present for >3 months, with implication s for health and disease. CKD is classified and staged based on cause, eGFR and albuminuria (quantified as urine albumin to creatinine ratio). An eGFR >60 mL/min/1.73 m2 in the absence of increased urine albumin excretion or structural abnormaliti es does not represent CKD. eGFR CKD Interpretat ion (mL/min/1.7 3 m2) stage >=90 G1 Normal 60-89 G2 Mild decrease 45-59 G3A Mild to moderate decrease 30-44 G3B Moderate to severe decrease 15-29 G4 Severe decrease <15 G5 Kidney failure Ordering Provider: ROHIT NOVAK Report Released Date/Time: Jun 22, 2023 03:51 PM Reporting Lab: [facility] [address] [address] Performing Lab: [facility] RE[facility] [address] [address] [facility] PANEL 5 CHLORIDE [MOLES/VOL UME] IN SERUM OR PLASMA 108 mmol/L 98 - 107 06/28 H Specimen Type: PLASMA Comment: Estimated Glomerular Filtration Rate (eGFR) calculated using the 2020 Chronic Kidney Disease-Epi demiology (CKD-EPI) Collaborati on creatinine equation; units of measure are mL/min/1.73 m2. Results are only valid for adults (>=18 years) whose serum creatinine is in a steady state. eGFR calculation s are not valid for patients with acute kidney injury and for patients on dialysis. Creatinine- based estimates of kidney function may also be inaccurate in patients with reduced creatinine generation due to decreased muscle mass (e.g., malnutritio n, severe hypoalbumin emia, sarcopenia, chronic neuromuscul ar disease, amputations , severe heart failure or liver disease) and in patients with increased creatinine generation due to increased muscle mass (e.g., muscle builders, anabolic steroids) or increased dietary intake. As drug clearance is proportiona l to total GFR and not GFR indexed to body surface area (BSA), in individuals with a BSA substantial ly different than 1.73 m2, drug dosing should be based on the reported eGFR value de-indexed from BSA by multiplying by the individual' s BSA and dividing by 1.73. CKD is diagnosed based on abnormaliti es of kidney structure or function, present for >3 months, with implication s for health and disease. CKD is classified and staged based on cause, eGFR and albuminuria (quantified as urine albumin to creatinine ratio). An eGFR >60 mL/min/1.73 m2 in the absence of increased urine albumin excretion or structural abnormaliti es does not represent CKD. eGFR CKD Interpretat ion (mL/min/1.7 3 m2) stage >=90 G1 Normal 60-89 G2 Mild decrease 45-59 G3A Mild to moderate decrease 30-44 G3B Moderate to severe decrease 15-29 G4 Severe decrease <15 G5 Kidney failure Ordering Provider: ROHIT NOVAK Report Released Date/Time: Jun 22, 2023 03:51 PM Reporting Lab: [facility] [address] [address] Performing Lab: [facility] RE[facility] [address] [address] [facility] PANEL 5 CARBON DIOXIDE, TOTAL [MOLES/VOL UME] IN SERUM OR PLASMA 26 mmol/L - 06/28 Specimen Type: PLASMA Comment: Estimated Glomerular Filtration Rate (eGFR) calculated using the 2020 Chronic Kidney Disease-Epi demiology (CKD-EPI) Collaborati on creatinine equation; units of measure are mL/min/1.73 m2. Results are only valid for adults (>=18 years) whose serum creatinine is in a steady state. eGFR calculation s are not valid for patients with acute kidney injury and for patients on dialysis. Creatinine- based estimates of kidney function may also be inaccurate in patients with reduced creatinine generation due to decreased muscle mass (e.g., malnutritio n, severe hypoalbumin emia, sarcopenia, chronic neuromuscul ar disease, amputations , severe heart failure or liver disease) and in patients with increased creatinine generation due to increased muscle mass (e.g., muscle builders, anabolic steroids) or increased dietary intake. As drug clearance is proportiona l to total GFR and not GFR indexed to body surface area (BSA), in individuals with a BSA substantial ly different than 1.73 m2, drug dosing should be based on the reported eGFR value de-indexed from BSA by multiplying by the individual' s BSA and dividing by 1.73. CKD is diagnosed based on abnormaliti es of kidney structure or function, present for >3 months, with implication s for health and disease. CKD is classified and staged based on cause, eGFR and albuminuria (quantified as urine albumin to creatinine ratio). An eGFR >60 mL/min/1.73 m2 in the absence of increased urine albumin excretion or structural abnormaliti es does not represent CKD. eGFR CKD Interpretat ion (mL/min/1.7 3 m2) stage >=90 G1 Normal 60-89 G2 Mild decrease 45-59 G3A Mild to moderate decrease 30-44 G3B Moderate to severe decrease 15-29 G4 Severe decrease <15 G5 Kidney failure Ordering Provider: ROHIT NOVAK Report Released Date/Time: Jun 22, 2023 03:51 PM Reporting Lab: [facility] [address] [address] Performing Lab: [facility] RE[facility] [address] [address] [facility] PANEL 5 CALCIUM [MASS/VOLU ME] IN SERUM OR PLASMA 9.4 mg/dL 8.4 - 10.2 06/28 Specimen Type: PLASMA Comment: Estimated Glomerular Filtration Rate (eGFR) calculated using the 2020 Chronic Kidney Disease-Epi demiology (CKD-EPI) Collaborati on creatinine equation; units of measure are mL/min/1.73 m2. Results are only valid for adults (>=18 years) whose serum creatinine is in a steady state. eGFR calculation s are not valid for patients with acute kidney injury and for patients on dialysis. Creatinine- based estimates of kidney function may also be inaccurate in patients with reduced creatinine generation due to decreased muscle mass (e.g., malnutritio n, severe hypoalbumin emia, sarcopenia, chronic neuromuscul ar disease, amputations , severe heart failure or liver disease) and in patients with increased creatinine generation due to increased muscle mass (e.g., muscle builders, anabolic steroids) or increased dietary intake. As drug clearance is proportiona l to total GFR and not GFR indexed to body surface area (BSA), in individuals with a BSA substantial ly different than 1.73 m2, drug dosing should be based on the reported eGFR value de-indexed from BSA by multiplying by the individual' s BSA and dividing by 1.73. CKD is diagnosed based on abnormaliti es of kidney structure or function, present for >3 months, with implication s for health and disease. CKD is classified and staged based on cause, eGFR and albuminuria (quantified as urine albumin to creatinine ratio). An eGFR >60 mL/min/1.73 m2 in the absence of increased urine albumin excretion or structural abnormaliti es does not represent CKD. eGFR CKD Interpretat ion (mL/min/1.7 3 m2) stage >=90 G1 Normal 60-89 G2 Mild decrease 45-59 G3A Mild to moderate decrease 30-44 G3B Moderate to severe decrease 15-29 G4 Severe decrease <15 G5 Kidney failure Ordering Provider: ROHIT NOVAK Report Released Date/Time: Jun 22, 2023 03:51 PM Reporting Lab: [facility] [address] [address] Performing Lab: [facility] RE[facility] [address] [facility] [address] [facility] PANEL 5 PROTEIN [MASS/VOLU ME] IN SERUM OR PLASMA 7.8 g/dL 6.4 - 8.3 06/28 Specimen Type: PLASMA Comment: Estimated Glomerular Filtration Rate (eGFR) calculated using the 2020 Chronic Kidney Disease-Epi demiology (CKD-EPI) Collaborati on creatinine equation; units of measure are mL/min/1.73 m2. Results are only valid for adults (>=18 years) whose serum creatinine is in a steady state. eGFR calculation s are not valid for patients with acute kidney injury and for patients on dialysis. Creatinine- based estimates of kidney function may also be inaccurate in patients with reduced creatinine generation due to decreased muscle mass (e.g., malnutritio n, severe hypoalbumin emia, sarcopenia, chronic neuromuscul ar disease, amputations , severe heart failure or liver disease) and in patients with increased creatinine generation due to increased muscle mass (e.g., muscle builders, anabolic steroids) or increased dietary intake. As drug clearance is proportiona l to total GFR and not GFR indexed to body surface area (BSA), in individuals with a BSA substantial ly different than 1.73 m2, drug dosing should be based on the reported eGFR value de-indexed from BSA by multiplying by the individual' s BSA and dividing by 1.73. CKD is diagnosed based on abnormaliti es of kidney structure or function, present for >3 months, with implication s for health and disease. CKD is classified and staged based on cause, eGFR and albuminuria (quantified as urine albumin to creatinine ratio). An eGFR >60 mL/min/1.73 m2 in the absence of increased urine albumin excretion or structural abnormaliti es does not represent CKD. eGFR CKD Interpretat ion (mL/min/1.7 3 m2) stage >=90 G1 Normal 60-89 G2 Mild decrease 45-59 G3A Mild to moderate decrease 30-44 G3B Moderate to severe decrease 15-29 G4 Severe decrease <15 G5 Kidney failure Ordering Provider: ROHIT NOVAK Report Released Date/Time: Jun 22, 2023 03:51 PM Reporting Lab: [facility] [address] [facility] [address] Performing Lab: [facility] [address] [facility] [address] [facility] PANEL 5 ALBUMIN [MASS/VOLU ME] IN SERUM OR PLASMA 3.5 g/dL 3.5 - 5.2 06/28 Specimen Type: PLASMA Comment: Estimated Glomerular Filtration Rate (eGFR) calculated using the 2020 Chronic Kidney Disease-Epi demiology (CKD-EPI) Collaborati on creatinine equation; units of measure are mL/min/1.73 m2. Results are only valid for adults (>=18 years) whose serum creatinine is in a steady state. eGFR calculation s are not valid for patients with acute kidney injury and for patients on dialysis. Creatinine- based estimates of kidney function may also be inaccurate in patients with reduced creatinine generation due to decreased muscle mass (e.g., malnutritio n, severe hypoalbumin emia, sarcopenia, chronic neuromuscul ar disease, amputations , severe heart failure or liver disease) and in patients with increased creatinine generation due to increased muscle mass (e.g., muscle builders, anabolic steroids) or increased dietary intake. As drug clearance is proportiona l to total GFR and not GFR indexed to body surface area (BSA), in individuals with a BSA substantial ly different than 1.73 m2, drug dosing should be based on the reported eGFR value de-indexed from BSA by multiplying by the individual' s BSA and dividing by 1.73. CKD is diagnosed based on abnormaliti es of kidney structure or function, present for >3 months, with implication s for health and disease. CKD is classified and staged based on cause, eGFR and albuminuria (quantified as urine albumin to creatinine ratio). An eGFR >60 mL/min/1.73 m2 in the absence of increased urine albumin excretion or structural abnormaliti es does not represent CKD. eGFR CKD Interpretat ion (mL/min/1.7 3 m2) stage >=90 G1 Normal 60-89 G2 Mild decrease 45-59 G3A Mild to moderate decrease 30-44 G3B Moderate to severe decrease 15-29 G4 Severe decrease <15 G5 Kidney failure Ordering Provider: ROHIT NOVAK Report Released Date/Time: Jun 22, 2023 03:51 PM Reporting Lab: [facility] DAMIR [address] [address] Performing Lab: AARONEmy REICH [address] [address] [facility] PANEL 5 BILIRUBIN. TOTAL [MASS/VOLU ME] IN SERUM OR PLASMA 0.3 mg/dL 0.2 - 1.2 06/28 Specimen Type: PLASMA Comment: Estimated Glomerular Filtration Rate (eGFR) calculated using the 2020 Chronic Kidney Disease-Epi demiology (CKD-EPI) Collaborati on creatinine equation; units of measure are mL/min/1.73 m2. Results are only valid for adults (>=18 years) whose serum creatinine is in a steady state. eGFR calculation s are not valid for patients with acute kidney injury and for patients on dialysis. Creatinine- based estimates of kidney function may also be inaccurate in patients with reduced creatinine generation due to decreased muscle mass (e.g., malnutritio n, severe hypoalbumin emia, sarcopenia, chronic neuromuscul ar disease, amputations , severe heart failure or liver disease) and in patients with increased creatinine generation due to increased muscle mass (e.g., muscle builders, anabolic steroids) or increased dietary intake. As drug clearance is proportiona l to total GFR and not GFR indexed to body surface area (BSA), in individuals with a BSA substantial ly different than 1.73 m2, drug dosing should be based on the reported eGFR value de-indexed from BSA by multiplying by the individual' s BSA and dividing by 1.73. CKD is diagnosed based on abnormaliti es of kidney structure or function, present for >3 months, with implication s for health and disease. CKD is classified and staged based on cause, eGFR and albuminuria (quantified as urine albumin to creatinine ratio). An eGFR >60 mL/min/1.73 m2 in the absence of increased urine albumin excretion or structural abnormaliti es does not represent CKD. eGFR CKD Interpretat ion (mL/min/1.7 3 m2) stage >=90 G1 Normal 60-89 G2 Mild decrease 45-59 G3A Mild to moderate decrease 30-44 G3B Moderate to severe decrease 15-29 G4 Severe decrease <15 G5 Kidney failure Ordering Provider: ROHIT NOVAK Report Released Date/Time: Jun 22, 2023 03:51 PM Reporting Lab: [address] [address] Performing Lab: [address] [address] [facility] PANEL 5 ASPARTATE AMINOTRANS FERASE [ENZYMATIC ACTIVITY/V OLUME] IN SERUM OR PLASMA 26 U/L 5 - 34 06/28 Specimen Type: PLASMA Comment: Estimated Glomerular Filtration Rate (eGFR) calculated using the 2020 Chronic Kidney Disease-Epi demiology (CKD-EPI) Collaborati on creatinine equation; units of measure are mL/min/1.73 m2. Results are only valid for adults (>=18 years) whose serum creatinine is in a steady state. eGFR calculation s are not valid for patients with acute kidney injury and for patients on dialysis. Creatinine- based estimates of kidney function may also be inaccurate in patients with reduced creatinine generation due to decreased muscle mass (e.g., malnutritio n, severe hypoalbumin emia, sarcopenia, chronic neuromuscul ar disease, amputations , severe heart failure or liver disease) and in patients with increased creatinine generation due to increased muscle mass (e.g., muscle builders, anabolic steroids) or increased dietary intake. As drug clearance is proportiona l to total GFR and not GFR indexed to body surface area (BSA), in individuals with a BSA substantial ly different than 1.73 m2, drug dosing should be based on the reported eGFR value de-indexed from BSA by multiplying by the individual' s BSA and dividing by 1.73. CKD is diagnosed based on abnormaliti es of kidney structure or function, present for >3 months, with implication s for health and disease. CKD is classified and staged based on cause, eGFR and albuminuria (quantified as urine albumin to creatinine ratio). An eGFR >60 mL/min/1.73 m2 in the absence of increased urine albumin excretion or structural abnormaliti es does not represent CKD. eGFR CKD Interpretat ion (mL/min/1.7 3 m2) stage >=90 G1 Normal 60-89 G2 Mild decrease 45-59 G3A Mild to moderate decrease 30-44 G3B Moderate to severe decrease 15-29 G4 Severe decrease <15 G5 Kidney failure Ordering Provider: ROHIT NOVAK Report Released Date/Time: Jun 22, 2023 03:51 PM Reporting Lab: [facility] [address] [address] Performing Lab: [facility] RE[facility] [address] [address] [facility] PANEL 5 ALANINE AMINOTRANS FERASE [ENZYMATIC ACTIVITY/V OLUME] IN SERUM OR PLASMA 39 U/L 0 - 55 06/28 Specimen Type: PLASMA Comment: Estimated Glomerular Filtration Rate (eGFR) calculated using the 2020 Chronic Kidney Disease-Epi demiology (CKD-EPI) Collaborati on creatinine equation; units of measure are mL/min/1.73 m2. Results are only valid for adults (>=18 years) whose serum creatinine is in a steady state. eGFR calculation s are not valid for patients with acute kidney injury and for patients on dialysis. Creatinine- based estimates of kidney function may also be inaccurate in patients with reduced creatinine generation due to decreased muscle mass (e.g., malnutritio n, severe hypoalbumin emia, sarcopenia, chronic neuromuscul ar disease, amputations , severe heart failure or liver disease) and in patients with increased creatinine generation due to increased muscle mass (e.g., muscle builders, anabolic steroids) or increased dietary intake. As drug clearance is proportiona l to total GFR and not GFR indexed to body surface area (BSA), in individuals with a BSA substantial ly different than 1.73 m2, drug dosing should be based on the reported eGFR value de-indexed from BSA by multiplying by the individual' s BSA and dividing by 1.73. CKD is diagnosed based on abnormaliti es of kidney structure or function, present for >3 months, with implication s for health and disease. CKD is classified and staged based on cause, eGFR and albuminuria (quantified as urine albumin to creatinine ratio). An eGFR >60 mL/min/1.73 m2 in the absence of increased urine albumin excretion or structural abnormaliti es does not represent CKD. eGFR CKD Interpretat ion (mL/min/1.7 3 m2) stage >=90 G1 Normal 60-89 G2 Mild decrease 45-59 G3A Mild to moderate decrease 30-44 G3B Moderate to severe decrease 15-29 G4 Severe decrease <15 G5 Kidney failure Ordering Provider: ROHIT NOVAK Report Released Date/Time: Jun 22, 2023 03:51 PM Reporting Lab: [facility] [address] [address] Performing Lab: [facility] RE[facility] [address] [address] [facility] PANEL 5 ANION GAP 3 IN SERUM OR PLASMA 6 meq/L 3 - 19 06/28 Specimen Type: PLASMA Comment: Estimated Glomerular Filtration Rate (eGFR) calculated using the 2020 Chronic Kidney Disease-Epi demiology (CKD-EPI) Collaborati on creatinine equation; units of measure are mL/min/1.73 m2. Results are only valid for adults (>=18 years) whose serum creatinine is in a steady state. eGFR calculation s are not valid for patients with acute kidney injury and for patients on dialysis. Creatinine- based estimates of kidney function may also be inaccurate in patients with reduced creatinine generation due to decreased muscle mass (e.g., malnutritio n, severe hypoalbumin emia, sarcopenia, chronic neuromuscul ar disease, amputations , severe heart failure or liver disease) and in patients with increased creatinine generation due to increased muscle mass (e.g., muscle builders, anabolic steroids) or increased dietary intake. As drug clearance is proportiona l to total GFR and not GFR indexed to body surface area (BSA), in individuals with a BSA substantial ly different than 1.73 m2, drug dosing should be based on the reported eGFR value de-indexed from BSA by multiplying by the individual' s BSA and dividing by 1.73. CKD is diagnosed based on abnormaliti es of kidney structure or function, present for >3 months, with implication s for health and disease. CKD is classified and staged based on cause, eGFR and albuminuria (quantified as urine albumin to creatinine ratio). An eGFR >60 mL/min/1.73 m2 in the absence of increased urine albumin excretion or structural abnormaliti es does not represent CKD. eGFR CKD Interpretat ion (mL/min/1.7 3 m2) stage >=90 G1 Normal 60-89 G2 Mild decrease 45-59 G3A Mild to moderate decrease 30-44 G3B Moderate to severe decrease 15-29 G4 Severe decrease <15 G5 Kidney failure Ordering Provider: ROHIT NOVAK Report Released Date/Time: Jun 22, 2023 03:51 PM Reporting Lab: [facility] [address] [address] Performing Lab: JAH [address] [address] [facility] PANEL 5 ALKALINE PHOSPHATAS E [ENZYMATIC ACTIVITY/V OLUME] IN SERUM OR PLASMA 74 U/L 40 - 150 06/28 Specimen Type: PLASMA Comment: Estimated Glomerular Filtration Rate (eGFR) calculated using the 2020 Chronic Kidney Disease-Epi demiology (CKD-EPI) Collaborati on creatinine equation; units of measure are mL/min/1.73 m2. Results are only valid for adults (>=18 years) whose serum creatinine is in a steady state. eGFR calculation s are not valid for patients with acute kidney injury and for patients on dialysis. Creatinine- based estimates of kidney function may also be inaccurate in patients with reduced creatinine generation due to decreased muscle mass (e.g., malnutritio n, severe hypoalbumin emia, sarcopenia, chronic neuromuscul ar disease, amputations , severe heart failure or liver disease) and in patients with increased creatinine generation due to increased muscle mass (e.g., muscle builders, anabolic steroids) or increased dietary intake. As drug clearance is proportiona l to total GFR and not GFR indexed to body surface area (BSA), in individuals with a BSA substantial ly different than 1.73 m2, drug dosing should be based on the reported eGFR value de-indexed from BSA by multiplying by the individual' s BSA and dividing by 1.73. CKD is diagnosed based on abnormaliti es of kidney structure or function, present for >3 months, with implication s for health and disease. CKD is classified and staged based on cause, eGFR and albuminuria (quantified as urine albumin to creatinine ratio). An eGFR >60 mL/min/1.73 m2 in the absence of increased urine albumin excretion or structural abnormaliti es does not represent CKD. eGFR CKD Interpretat ion (mL/min/1.7 3 m2) stage >=90 G1 Normal 60-89 G2 Mild decrease 45-59 G3A Mild to moderate decrease 30-44 G3B Moderate to severe decrease 15-29 G4 Severe decrease <15 G5 Kidney failure Ordering Provider: ROHIT NOVAK Report Released Date/Time: Jun 22, 2023 03:51 PM Reporting Lab: [facility] RE[facility] [address] [address] Performing Lab: J[facility] RE[facility] [address] [address] [facility] PANEL 5 GLOMERULAR FILTRATION RATE/1.73 SQ M.PREDICTE D [VOLUME RATE/AREA] IN SERUM, PLASMA OR BLOOD BY CREATININE -BASED FORMULA (CKD-EPI 2020) 53 06/28 Specimen Type: PLASMA Comment: Estimated Glomerular Filtration Rate (eGFR) calculated using the 2020 Chronic Kidney Disease-Epi demiology (CKD-EPI) Collaborati on creatinine equation; units of measure are mL/min/1.73 m2. Results are only valid for adults (>=18 years) whose serum creatinine is in a steady state. eGFR calculation s are not valid for patients with acute kidney injury and for patients on dialysis. Creatinine- based estimates of kidney function may also be inaccurate in patients with reduced creatinine generation due to decreased muscle mass (e.g., malnutritio n, severe hypoalbumin emia, sarcopenia, chronic neuromuscul ar disease, amputations , severe heart failure or liver disease) and in patients with increased creatinine generation due to increased muscle mass (e.g., muscle builders, anabolic steroids) or increased dietary intake. As drug clearance is proportiona l to total GFR and not GFR indexed to body surface area (BSA), in individuals with a BSA substantial ly different than 1.73 m2, drug dosing should be based on the reported eGFR value de-indexed from BSA by multiplying by the individual' s BSA and dividing by 1.73. CKD is diagnosed based on abnormaliti es of kidney structure or function, present for >3 months, with implication s for health and disease. CKD is classified and staged based on cause, eGFR and albuminuria (quantified as urine albumin to creatinine ratio). An eGFR >60 mL/min/1.73 m2 in the absence of increased urine albumin excretion or structural abnormaliti es does not represent CKD. eGFR CKD Interpretat ion (mL/min/1.7 3 m2) stage >=90 G1 Normal 60-89 G2 Mild decrease 45-59 G3A Mild to moderate decrease 30-44 G3B Moderate to severe decrease 15-29 G4 Severe decrease <15 G5 Kidney failure Ordering Provider: ROHIT NOVAK P Report Released Date/Time: Jun 22, 2023 03:51 PM Reporting Lab: [facility] [address] [address] Performing Lab: [facility] [address] [address] [facility] URINALYS IS COLOR OF URINE Light-Ye llow 12/14 Specimen Type: URINE No comment entered. Ordering Provider: SURESH MEJIA Report Released Date/Time: Dec 14, 2022 02:55 PM Reporting Lab: [facility] [address] [address] Performing Lab: [facility] [address] [address] [facility] URINALYS IS APPEARANCE OF URINE Clear 12/14 Specimen Type: URINE No comment entered. Ordering Provider: SURESH MEJIA Report Released Date/Time: Dec 14, 2022 02:55 PM Reporting Lab: [address] [address] Performing Lab: [phone] [place] [address] URINALYS IS UROBILINOG EN [MASS/VOLU ME] IN URINE BY TEST STRIP Normalmg /dL 12/14 Specimen Type: URINE No comment entered. Ordering Provider: SURESH MEJIA Report Released Date/Time: Dec 14, 2022 02:55 PM Reporting Lab: [place] [phone] Performing Lab: [place] [phone] [place] [address] URINALYS IS HEMOGLOBIN [PRESENCE] IN URINE BY TEST STRIP Negative 12/14 Specimen Type: URINE No comment entered. Ordering Provider: SURESH MEJIA Report Released Date/Time: Dec 14, 2022 02:55 PM Reporting Lab: [address] [address] Performing Lab: [place] [phone] [place] [address] URINALYS IS BILIRUBIN. TOTAL [PRESENCE] IN URINE BY TEST STRIP Negative 12/14 Specimen Type: URINE No comment entered. Ordering Provider: SURESH MEJIA Report Released Date/Time: Dec 14, 2022 02:55 PM Reporting Lab: [address] [address] Performing Lab: [address] [address] [facility] URINALYS IS KETONES [MASS/VOLU ME] IN URINE BY TEST STRIP Negative mg/dL 12/14 Specimen Type: URINE No comment entered. Ordering Provider: SURESH MEJIA Report Released Date/Time: Dec 14, 2022 02:55 PM Reporting Lab: [address] [address] Performing Lab: [address] [address] [facility] URINALYS IS PROTEIN [MASS/VOLU ME] IN URINE BY TEST STRIP Negative mg/dL 0 - 14 12/14 Specimen Type: URINE No comment entered. Ordering Provider: SURESH MEJIA Report Released Date/Time: Dec 14, 2022 02:55 PM Reporting Lab: [place] [phone] Performing Lab: [place] [phone] [place] [address] URINALYS IS PH OF URINE BY TEST STRIP 5.0 4.5 - 8.0 12/14 Specimen Type: URINE No comment entered. Ordering Provider: SURESH MEJIA Report Released Date/Time: Dec 14, 2022 02:55 PM Reporting Lab: [place] [phone] Performing Lab: [place] [phone] [place] [address] URINALYS IS NITRITE [PRESENCE] IN URINE BY TEST STRIP Negative 12/14 Specimen Type: URINE No comment entered. Ordering Provider: SURESH MEJIA Report Released Date/Time: Dec 14, 2022 02:55 PM Reporting Lab: [place] [phone] Performing Lab: [place] [phone] [place] [address] URINALYS IS LEUKOCYTE ESTERASE [PRESENCE] IN URINE BY TEST STRIP Negative 12/14 Specimen Type: URINE No comment entered. Ordering Provider: SURESH MEJIA Report Released Date/Time: Dec 14, 2022 02:55 PM Reporting Lab: [place] [phone] Performing Lab: [place] [phone] [place] [address] URINALYS IS SPECIFIC GRAVITY OF URINE 1.018 1.005 - 1.030 12/14 Specimen Type: URINE No comment entered. Ordering Provider: SURESH MEJIA Report Released Date/Time: Dec 14, 2022 02:55 PM Reporting Lab: [address] [address] Performing Lab: [address] [address] [facility] URINALYS IS GLUCOSE [MASS/VOLU ME] IN URINE BY TEST STRIP Negative mg/dL 12/14 Specimen Type: URINE No comment entered. Ordering Provider: SURESH MEJIA Report Released Date/Time: Dec 14, 2022 02:55 PM Reporting Lab: [address] [address] Performing Lab: [address] [address] [facility] Vital Signs Combined list of inpatient and outpatient Vital Signs from Department of [facility] and [facility], ranging from 12 months to all on record, depending upon the facility. Vital Sign Value Date Comments Source SYSTOLIC BLOOD PRESSURE 132 10/04/2024 10:19:46 [facility] DIASTOLIC BLOOD PRESSURE 82 10/04/2024 10:19:46 [facility] PULSE OXIMETRY 96 10/04/2024 10:19:46 L [facility] WEIGHT 201 10/04/2024 10:19:46 MARY KATE [facility] BMI 28 kg/m2 10/04/2024 10:19:46 [place] [facility] PAIN 0 10/04/2024 10:19:46 [place] [facility] TEMPERATURE 97.6 10/04/2024 10:19:46 ADRIANA [facility] PULSE 69 10/04/2024 10:19:46 [place] [facility] RESPIRATION 16 10/04/2024 10:19:46 [facility] Encounters Combined list of: 1) Encounters from [facility] facilities going backup to the last 18 months, not all [place] inpatient encounters are included; 2) Encounters from the Department of [facility] facilities going backup to 280 months. 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 Bobby ACE NDRSADIA J 05/03 [place] [facility] OFFICE O/P EST MOD 30-39 MIN [id number] Diagnos is: ICD-10- CM F43.12 Post-tr aumatic stress disorde r, chronic BEENDERS,B RENT C 05/31 [place] Outpatient Encounter [id number] 05/31 [place] OFFICE O/P EST MOD 30 MIN [id number] Diagnos is: ICD-10- CM F43.12 Post-tr aumatic stress disorde r, chronic BEENDERS,B RENT C 08/29 [place] Outpatient Encounter [id number] 10/02 [place] OFFICE O/P EST MOD 30 MIN [id number] Diagnos is: ICD-10- CM 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 ROBERTO,WES KENYONNY L 10/29 [place] [facility] OFFICE O/P EST MOD 30 MIN [id number] Diagnos is: ICD-10- CM 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, bilater al, early dry stage LISBET,JAMESON LLIP K 11/21 [place] [facility] SELF-MGMT EDUC & TRA[place] 1 [place] [id number] Diagnos is: ICD-10- CM G47.33 Obstruc tive sleep apnea (adult) (pediat erin) JUAN C KOTHARI Robert 12/03 [place] [facility] OFFICE O/P EST MOD 30 MIN [id number] Diagnos is: ICD-10- CM F43.12 Post-tr aumatic stress disorde r, chronic Slava CROCKER RENT C 12/06 [place] Outpatient Encounter [id number] ANGELY LUDWIG 12/07 [place] [facility] Outpatient Encounter [id number] 01/02 [place] [facility] Outpatient Encounter [id number] Augustine GARCIA 01/28 [place] [facility] HC PRO PHONE CALL 5-10 MIN [id number] Diagnos is: ICD-10- CM R68.89 Other general symptom s and signs COTYRUBEN S 01/28 [place] [facility] HC PRO PHONE CALL 5-10 MIN [id number] Diagnos is: ICD-10- CM R68.89 Other general symptom s and signs COTY,RUBEN CLAROS S 02/11 [place] [facility] OFFICE O/P EST MOD 30 MIN [id number] Diagnos is: ICD-10- CM F43.12 Post-tr aumatic stress disorde r, chronic BEENSlava MEYER RENT C 02/28 [place] OFFICE O/P EST MOD 30 MIN [id number] Diagnos is: ICD-10- CM F43.12 Post-tr aumatic stress disorde r, chronic BEENDERS,B RENT C 08/15 [place] [facility] Outpatient Encounter [id number] 09/02 [place] OFFICE O/P EST MOD 30 MIN [id number] Diagnos is: ICD-10- CM 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 ROBERTO,WES TTANY L 10/04 [place] [facility] Outpatient Encounter [id number] 10/30 [place] [facility] Social History Combined list of available smoking, tobacco, and other social history from Department [facility] and [facility] facilities. Social History Type Response Date Comment Sourc e Tobacco smoking status NHIS VA-TOBACCO USE FORMER CIGARETTES 10/04/2024 [facility] History of tobacco use [place]-TOBACCO NEVER USED OTHER TYPE 10/04/2024 [facility] History of tobacco use ND-TOBACCO FORMER USER 10/30/2023 [facility] History of tobacco use [place]-TOBACCO QUIT 15 YRS OR MORE 09/14/2022 [facility] History of tobacco use VA-TOBACCO FORMER USER 03/16/2021 [facility] Plan of Care List of future care activities from Department [place] [facility] facilities. Additional future care activities may be listed in the Assessment and Plan section. Date/Time Care Activity Care Activity Detail Facili ty 12/03/2024 AMBULATORY - MEDICINE AMBULATORY - MEDICI NE [facility]
== END 2024-10-31 23:59 | disposition home or self-care (01) ==
LOC: LAB.DROPOF 11-01 12:37
PROVIDERS: PCP Internal Medicine; Visit Provider Internal Medicine
DX: R25.2 Cramp and spasm (principal)
CPT/HCPCS: 80048; 82550; 83735

== ENCOUNTER 2025-02-18 07:46 | Outpatient (CLI) | payer MEDICARE, OTHER, SELFPAY ==
--- OUTSIDE RECORDS SUMMARY | 2024-11-15 06:15 | XMS_ITS | Encounter Summary ---
Author Name [facility] [place] [facility] [place] [facility] [place] Address [address] [place] [address] Care Team Providers Care Dispute Coordinator Name Role Phone MOLLY MEJIA Primary Care Provider Unavailab le Insurance Providers: All historical and current Section Date Range: From patient's date of to the date document was created. This section includes the names of all active insurance providers for the patient. Insurance Provider Type of Coverage Plan Name Start of Policy Coverage End of Policy Coverage Group Number Member ID Insurance Provider's Telephone Number Policy Lazo's Name Patient's Relationship to Policy Lazo CAREMARK ([id number]) PRESCRIPT ION [facility] Nov 24, 2018 [facility] [id number] [phone] Som SUGGSER PATIENT CAREMARK ([id number]) PRESCRIPT ION [facility] Nov 24, 2018 [facility] [id number] ES,R OGER PATIENT CAREMARK ([id number]) PRESCRIPT ION [id number] Nov 24, 2018 [id number] Som SUGGS OGER PATIENT MEDICARE (WNR) MEDICARE (M) PART A Apr 26, 1991 PART A [id number] ESSom OGER PATIENT MEDICARE (WNR) MEDICARE (M) PART B Apr 26, 1991 PART B [id number] Som SUGGS PATIENT [facility] MEDIC[facility] SECONDARY (NO B EXC) [facility] Nov 24, 2018 [facility] [id number] Som SUGGS PATIENT [facility] MEDIC[facility] SECONDARY (NO B EXC) [facility] Nov 24, 2018 [facility] [id number] Som SUGGS PATIENT Selected Encounter This section includes the information on record at [place] for the Encounter. Date/Time Encounter Type Encounter Description Reason Pro vider Source November 15, 2024 10:15 AM Outpatient Encounter ADMIN PAT ACTIVTIES (MASNONCT) IHE Encounter Template Text not used by [place] Plan of Treatment: Future Appointments (+ 6 months) and Future Tests (+/- 45 days) The Plan of Treatment section includes future care activities for the patient from all [place] treatmentfacilities. This section includes future appointments and future orders which are active, pending or scheduled. Future Appointments This section includes appointments that were scheduled to occur 6 months from the date of the Encounter, up to a maximum of 20 appointments. The data comes from all [place] treatment facilities. Appointment Date/Time Appointment Type Appointme nt Facility Name Dec 03, 2024 10:30 AM AMBULATORY - MEDICINE [facility] Social History: Smoking Status (Most current) and Tobacco Use (All prior to encounter date) This section includes the most current, and the historical, smoking and tobacco- related health factors from the [place] facility where the Encounter took place. Current Smoking Status This section includes the most current smoking, or tobacco-related health factor, from the [place] facility where the Encounter took place. Date/Time Current Smoking Status Comment Stacey ity Sep 14, 2022 01:00 PM [place]-TOBACCO QUIT 15 YRS OR MORE [facility] Tobacco Use History This section includes a history of the smoking, or tobacco-related health factors, that were collected on or before the date of the Encounter. The data comes from the [place] facility where the Encounter took place. Date/Time Smoking Status/Tobacco Use Comment F deonte Sep 14, 2022 01:00 PM [place]-TOBACCO QUIT 15 YRS OR MORE [facility] Encounter Notes: All associated encounter notes This section contains the clinical notes associated to the Encounter. Date/Time Encounter Note(s) Provider Source November 15, 2024 10:15 AM LETTERS: LOCAL TITLE: SPECIALTY CONTACT LETTER STANDARD TITLE: LETTERS DATE OF NOTE: NOVEMBER 15, 2024@10:15 ENTRY DATE: NOVEMBER 15, 2024@10:15:35 AUTHOR: RASHAD PADGETT COSIGNER: URGENCY: STATUS: COMPLETED [facility] [address] [place] [address] Mr. MANDI RICCI ES [address] [place], [place] [address] NOVEMBER 15, 2024 Dear MANDI SUGGS, We have been unable to contact you by telephone to schedule an appointment in our Optometry clinic. Your health and well-being are important to us. Please call us at or . Select Option #2 and then #3. We look forward to hearing from you soon. Sincerely yours, Optometry [facility] RASHAD PADGETT [facility]
--- OUTSIDE RECORDS SUMMARY | 2024-12-03 06:30 | XMS_ITS | Encounter Summary ---
Author Name [facility] [place] [facility] [place] Address [address] [place] [address] Care Team Providers Care Survey Technologist Name Role Phone MOLLY MEJIA Primary Care [...] Name Patient's Relationship to Policy Lazo CAREMARK ([id number]) PRESCRIPT ION [facility] Nov 24, 2018 [facility] [id number] [phone] Som SUGGSER PATIENT CAREMARK ([id number]) PRESCRIPT ION [facility] Nov 24, 2018 [facility] [id number] ESSom OGER PATIENT CAREMARK ([id number]) PRESCRIPT ION [id number] Nov 24, 2018 [id number] Som SUGGS OGER PATIENT MEDICARE (WNR) MEDICARE (M) PART A Apr 26, 1991 PART A [id number] Som SUGGS OGER PATIENT MEDICARE (WNR) MEDICARE (M) PART B Apr 26, 1991 PART B [id number] Som SUGGS PATIENT [facility] MEDICARE SECONDARY (NO B EXC) [facility] Nov 24, 2018 [facility] [id number] Som SUGGS PATIENT [facility] MEDIC[facility] SECONDARY (NO B EXC) [facility] Nov 24, 2018 [facility] [id number] Som SUGGS PATIENT Selected Encounter This section includes the information on record at [place] for the Encounter. Date/Time Encounter Type Encounter Description Reason Provider Source Dec 03, 2024 10:30 AM EDU&TRN PT SELF-MGMT NQHP 1 SLEEP MEDICINE ICD-10-CM G47.33 Obstructive sleep apnea (adult) (pediatric) JUAN C KOTHARI [place] Encounter Template Text not used by [place] Assessments - Encounter Diagnoses This section includes the primary and secondary diagnoses documented for the Encounter. Date/Time Primary/Secondary Diagnosis Diagnosis Name Provider Source Dec 11, 2024 09:38 AM PRIMARY Obstructive sleep apnea (adult) (pediatric) JUAN C KOTHARI [facility] Social History: Smoking Status (Most current) and Tobacco Use (All prior to encounter date) This section includes the most current, and the historical, smoking and tobacco- related health factors from the [place] facility where the Encounter took place. Current Smoking Status This section includes the most current smoking, or tobacco-related health factor, from the [place] facility where the Encounter took place. Date/Time Current Smoking Status Comment Stacey melchor Oct 04, 2024 10:30 AM VA-TOBACCO USE FOR DAIANA CIGARETTES [facility] Tobacco Use History This section includes a history of the smoking, or tobacco-related health factors, that were collected on or before the date of the Encounter. The data comes from the [place] facility where the Encounter took place. Date/Time Smoking Status/Tobacco Use Comment Carli clemons Oct 04, 2024 10:30 AM VA-TOBACCO USE FOR DAIANA CIGARETTES [facility] October 30, 2023 09:30 AM VA-TOBACCO FORMER USER [facility] October 30, 2023 09:30 AM VA-TOBACCO QUIT 15 YRS OR MORE [facility] Mar 16, 2021 09:30 AM VA-TOBACCO FORMER USER [facility] Mar 16, 2021 09:30 AM VA-TOBACCO QUIT 15 YRS OR MORE [facility] Encounter Notes: All associated encounter notes This section contains the clinical notes associated to the Encounter. Date/Time Encounter Note(s) Provider Source Dec 03, 2024 01:02 PM SLEEP MEDICINE NOT E: LOCAL TITLE: C-PAP FOLLOW-UP NOTE STANDARD TITLE: SLEEP MEDICINE NOTE DATE OF NOTE: DEC 03, 2024@13:02 ENTRY DATE: DEC 03, 2024@13:02:28 AUTHOR: JUAN C KOTHARI EXP COSIGNER: URGENCY: STATUS: COMPLETED C-PAP Follow-Up Note: Patient presents for routine F/U appointment Date of SLEEP STUDY: 12.20.21 AHI: 15 Type of Machine: ResMed Airsense 11 Auto-Pap Serial Number: [id number] [phone]) Humidifer: Heated Humidair Pressure: [id number] Mask: AirFit F20, medium Tubing: Climateline Air Complaints/Concerns: [place] to clinic for follow up. He is doing well with CPAP use. No concerns voiced at this time. He requested supplies of tubing, mask, and filters, issued today. Compliance: 74% # hours per day: 5:5 # Days used: 270/365 95% Pressure: 12.0 Leak: 8.3 AHI: 4.1 Appointment duration = 30 minutes total. Total duration includes both patient interaction and administrative completion of appointment. Therapy, equipment, and/or supplies were provided for treatment of obstructive sleep apnea diagnosed by the Sleep Physician. Equipment assessed. Determined to be set and functioning properly. Patient is doing well and near compliant ranges. Patient instructed to contact Sleep Center with any questions and/or concerns. Reiterated proper use of machine, mask, heater, and importance of humidity. Patient encouraged to use equipment at least 4 hours per night. Patient encouraged to wear mask & use machine during daytime to help relieve anxiety if necessary. Discussed the diagnosis of TORREY and potential health risks. Diagnosis: Obstructive Sleep Apnea RTC: 1 year follow up /marycruz/ JUAN C KOTHARI Registered Respiratory Therapist Signed: 12/03/2024 13:45 JUAN C KOTHARI [facility]
--- OUTSIDE RECORDS SUMMARY | 2024-12-04 09:47 | XMS_ITS | Encounter Summary ---
Author Name [facility] [place] [place] [facility] [place] [place] Address [address] [place] [address] Care Team Providers Care Ornamental Painter Name Role Phone MOLLY MEJIA Primary Care [...] Name Patient's Relationship to Policy Lazo CAREMARK ([id number]) PRESCRIPT ION [facility] Nov 24, 2018 [facility] [id number] Som SUGGS PATIENT CAREMARK ([id number]) PRESCRIPT ION [facility] Nov 24, 2018 [facility] [id number] ESR OGER PATIENT CAREMARK ([id number]) PRESCRIPT ION [id number] Nov 24, 2018 [id number] Som SUGGS PATIENT MEDICARE (WNR) MEDICARE (M) PART A Apr 26, 1991 PART A [id number] Som SUGGS PATIENT MEDICARE (WNR) MEDICARE (M) PART B Apr 26, 1991 PART B [id number] [phone] Som SUGGS PATIENT [facility] MEDIC[facility] SECONDARY (NO B EXC) [facility] Nov 24, 2018 [facility] [id number] Som SUGGS PATIENT [facility] MEDIC[facility] SECONDARY (NO B EXC) [facility] Nov 24, 2018 [facility] [id number] [phone] Som SUGGS PATIENT Selected Encounter This section includes the information on record at [place] for the Encounter. Date/Time Encounter Type Encounter Description Reason Provider Source Dec 04, 2024 01:47 PM Outpatient Encounter PROSTHETICS/ORTHOTI MOLLY MORROW Encounter Template Text not used by [place] Social History: Smoking Status (Most current) and Tobacco Use (All prior to encounter date) This section includes the most current, and the historical, smoking and tobacco- related health factors from the [place] facility where the Encounter took place. Current Smoking Status This section includes the most current smoking, or tobacco-related health factor, from the [place] facility where the Encounter took place. Date/Time Current Smoking Status Comment Stacey melchor Oct 04, 2024 10:30 AM VA-TOBACCO USE FOR DAIANA CIGARETTES [facility] Tobacco Use History This section includes a history of the smoking, or tobacco-related health factors, that were collected on or before the date of the Encounter. The data comes from the [place] facility where the Encounter took place. Date/Time Smoking Status/Tobacco Use Comment Carli clemons Oct 04, 2024 10:30 AM VA-TOBACCO USE FOR DAIANA CIGARETTES [facility] October 30, 2023 09:30 AM VA-TOBACCO FORMER USER [facility] October 30, 2023 09:30 AM VA-TOBACCO QUIT 15 YRS OR MORE [facility] Mar 16, 2021 09:30 AM VA-TOBACCO FORMER USER [facility] Mar 16, 2021 09:30 AM VA-TOBACCO QUIT 15 YRS OR MORE [facility]
--- OUTSIDE RECORDS SUMMARY | 2025-01-21 05:49 | XMS_ITS | Continuity of Care Document ---
Author Name [facility] Organization [facility] Care Team Providers Care Clinical Sales Consultant Name Role Phone [facility] Unavailable Unavailable Problems Combined list of problems from Department of [facility] and [facility] facilities. It does not include entries that were removed or entered in error. Problem Status Onset Date Problem Type Date of Resolution Comments Source Chronic Post-Traumatic Stress Disorder Following Combat ([facility] [id number]) Active 06/04/19 70 Condition [facility] Benign prostatic hyperplasia Active [facility] Coronary artery disease Active Condition [place] Depression Active Condition [place] Exposure [facility] potentially hazardous substance Active [facility] Gastroesophageal reflux disease Active [facility] Headache Active Condition [place] Mild cognitive disorder Active Condition [place] Pure hypercholesterolemia Active Condition [facility] Sleep apnea Active Condition [place] Diagnosis: ICD-10-CM G47.33 Obstructive sleep apnea (adult) (pediatric) Active Diagnosis [facility] Diagnosis: ICD-10-CM I25.10 Athscl heart disease of [place] coronary artery w/o ang pctrs Active Diagnosis [facility] Diagnosis: ICD-10-CM F43.12 Post-traumatic stress disorder, chronic Active Diagnosis [facility] Diagnosis: ICD-10-CM R68.89 Other general symptoms and signs Active Diagnosis [facility] Diagnosis: ICD-10-CM 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 Medication Details Route Status Patient Instructions Prescription Expires Prescription Number Last Dispense Date Ordering Provider Order Date Order Qty Source ACETAMINOPH EN 325MG TAB TAKE THREE TABLETS BY MOUTH AT BEDTIME ORAL ACTIVE PRUDENCE MEJIA 2022 [place] [facility] ASPIRIN TAB TAKE 81MG BY MOUTH DAILY ORAL ACTIVE [place] CROCKER 2021 [place] CARBOXYMETH YLCELLULOSE NA 0.5% (PF) SOLN,OPH,0. 4ML PUT 1 DROP IN BOTH EYES FOUR TIMES A DAY FOR DRY EYES OPHTHA LMIC ACTIVE 11/22/2024 [id number] JESSIKA FRAUSTO ILLIP K 2023 100 [place] [facility] CLOPIDOGREL BISULFATE 75MG TAB TAKE ONE TABLET BY MOUTH DAILY ORAL ACTIVE PRUDENCE MEJIA 2023 [place] [facility] CYANOCOBALA MIN TAB TAKE BY MOUTH DAILY ORAL ACTIVE PRUDENCE MEJIA 2022 [place] [facility] MIRTAZAPINE 30MG TAB TAKE ONE TABLET BY MOUTH AT BEDTIME FOR MOOD ORAL ACTIVE 03/01/2025 [id number] [place] CR[place] 2023 90 [place] MIRTAZAPINE 30MG TAB TAKE ONE TABLET BY MOUTH AT BEDTIME FOR MOOD ORAL DISCONT INUED 01/05/2024 [id number] [place] CROCKER 2022 60 [place] PANTOPRAZOL E NA 20MG TAB,EC TAKE ONE TABLET BY MOUTH ONCE A DAY 30 MINUTES BEFORE A MEAL ORAL ACTIVE PRUDENCE MEJIA 2023 [place] [facility] ROSUVASTATI N CA 5MG TAB TAKE ONE TABLET BY MOUTH AT BEDTIME ORAL ACTIVE PRUDENCE MEJIA 2023 [place] [facility] TAMSULOSIN HCL 0.4MG CAP TAKE 1 CAPSULE BY MOUTH EVERY EVENING ORAL ACTIVE PRUDENCE MEJIA 2023 [place] [facility] TURMERIC CAP/TAB TAKE BY MOUTH ORAL ACTIVE PRUDENCE MEJIA 2022 [place] [facility] Immunizations Combined list of available immunizations from the Department of [facility] and [facility] facilities. Immunization Series Date Given Administered By Site Reaction Lot Number CVX Code Drug Business Development Sales Executive Status Comments Source COVID-19 (MODERNA), MRNA, LNP-S, PF, 100 MCG/0.5ML DOSE OR 50 MCG/0.25ML DOSE 2 2020 207 complet ed HISTORICA L INFORMATI ON - FROM OTHER REGISTRY, [place] [facility] COVID-19 (MODERNA), MRNA, LNP-S, PF, 100 MCG/0.5ML DOSE OR 50 MCG/0.25ML DOSE 1 2020 207 complet ed HISTORICA L INFORMATI ON - FROM OTHER REGISTRY, [place] [facility] PNEUMOCOCCAL CONJUGATE PCV 13 1 2019 133 complet ed HISTORICA L INFORMATI ON - FROM OTHER REGISTRY, [place] [facility] Results Combined list of recent chemistry, hematology and other laboratory results from Department of [facility] and [facility], ranging from 15 months to all on record, depending upon the facility. Order Name Results Value Reference Range Date Interpretation Specimen Comments Source 25-OH VITAMIN D 25-HYDROXYV ITAMIN D3 [MASS/VOLUM E] IN SERUM OR PLASMA 50.8 ng/mL 20.0 [...] 2024 10:35 AM Reporting Lab: JAH REICH [address] [address] Performing Lab: JAH REICH [address] [address] [facility] B12 VITAMIN COBALAMIN (VITAMIN B12) [MASS/VOLUM E] IN SERUM OR PLASMA 449 pg/mL 213 [...] 2024 10:35 AM Reporting Lab: JAH REICH [address] [address] Performing Lab: JAH REICH [address] [address] [facility] CBC/PLT LEUKOCYTES [#/VOLUME] IN BLOOD BY AUTOMATED COUNT 5.0 10*3/u L 5.0 - 10.0 10/04 Specimen Type: BLOOD No comment entered. Ordering Provider: SURESH MEJIA Report Released Date/Time: Oct 04, 2024 10:35 AM Reporting Lab: [address] Performing Lab: [address] CBC/PLT ERYTHROCYTE S [#/VOLUME] IN BLOOD BY AUTOMATED COUNT 4.80 10*6/u L 4.6 - 6.2 10/04 Specimen Type: BLOOD No comment entered. Ordering Provider: SURESH MEJIA Report Released Date/Time: Oct 04, 2024 10:35 AM Reporting Lab: [place] [id number] Performing Lab: [address] CBC/PLT HEMOGLOBIN [MASS/VOLUM E] IN BLOOD 14.0 g/dL 14.0 - 18.0 10/04 Specimen Type: BLOOD No comment entered. Ordering Provider: SURESH MEJIA Report Released Date/Time: Oct 04, 2024 10:35 AM Reporting Lab: [place] [id number] Performing Lab: [place] [id number] [place] [address] CBC/PLT HEMATOCRIT [VOLUME FRACTION] OF BLOOD BY AUTOMATED COUNT 42.7 42.0 - 52.0 10/04 Specimen Type: BLOOD No comment entered. Ordering Provider: SURESH MEJIA Report Released Date/Time: Oct 04, 2024 10:35 AM Reporting Lab: [place] [id number] Performing Lab: [place] [id number] [place] [address] CBC/PLT MCV [ENTITIC VOLUME] BY AUTOMATED COUNT 89.0 fL 80.0 - 94.0 10/04 Specimen Type: BLOOD No comment entered. Ordering Provider: SURESH MEJIA Report Released Date/Time: Oct 04, 2024 10:35 AM Reporting Lab: [address] [address] Performing Lab: [phone] [place] [address] CBC/PLT MCH [ENTITIC MASS] BY AUTOMATED COUNT 29.2 pg 27.0 - 31.0 10/04 Specimen Type: BLOOD No comment entered. Ordering Provider: SURESH MEJIA Report Released Date/Time: Oct 04, 2024 10:35 AM Reporting Lab: [address] [address] Performing Lab: [place] [id number] [facility] CBC/PLT MCHC [MASS/VOLUM E] BY AUTOMATED COUNT 32.8 g/dL 32.0 - 36.0 10/04 Specimen Type: BLOOD No comment entered. Ordering Provider: SURESH MEJIA Report Released Date/Time: Oct 04, 2024 10:35 AM Reporting Lab: [address] [address] Performing Lab: [place] [id number] [place] [address] CBC/PLT PLATELETS [#/VOLUME] IN BLOOD 250 10*3/u L 150 - 450 10/04 Specimen Type: BLOOD No comment entered. Ordering Provider: SURESH MEJIA Report Released Date/Time: Oct 04, 2024 10:35 AM Reporting Lab: [address] [address] Performing Lab: [address] [phone] [place] [address] CBC/PLT PLATELET MEAN VOLUME [ENTITIC VOLUME] IN BLOOD 9.2 fL 9.0 - 13.1 10/04 Specimen Type: BLOOD No comment entered. Ordering Provider: SURESH MEJIA Report Released Date/Time: Oct 04, 2024 10:35 AM Reporting Lab: [address] [address] Performing Lab: [place] [id number] [place] [address] CBC/PLT ERYTHROCYTE DISTRIBUTIO N WIDTH [ENTITIC VOLUME] BY AUTOMATED COUNT 14.0 11.0 - 16.0 10/04 Specimen Type: BLOOD No comment entered. Ordering Provider: SURESH MEJIA Report Released Date/Time: Oct 04, 2024 10:35 AM Reporting Lab: [place] [id number] Performing Lab: [place] [id number] CBC/PLT NUCLEATED ERYTHROCYTE S/100 ERYTHROCYTE S IN BLOOD 0.0 0.0 - 0.0 10/04 Specimen Type: BLOOD No comment entered. Ordering Provider: SURESH MEJIA Report Released Date/Time: Oct 04, 2024 10:35 AM Reporting Lab: [place] [id number] Performing Lab: [place] [id number] GLYCOHEMO GLOBIN HEMOGLOBIN A1C/HEMOGLO BIN.TOTAL IN BLOOD BY HPLC 5.4 4.4 - 5.6 10/04 Specimen Type: BLOOD Comment: Prediabetes : 5.7%-6.4% Diabetes: >= 6.5% [facility] guidelines for A1c interpretat ion: Glycemic control targets are based on Shared Decision Making between clinicians and patients. Criteria used to establish an A1c target recommendat ion can be found at https://www .sc.gov/elan lityandpati entsafety/ and include the use of [...] 9.27. Ref: https://ngs p.org/CAPda ta.asp. The in-house Vigilos D-100 analyzer has a historical CV <= 2%. Contact the laboratory for further performance characteris tics of this assay. Ordering Provider: SURESH MEJIA Report Released Date/Time: Oct 04, 2024 10:35 AM Reporting Lab: J[facility] RE[facility] [address] [address] Performing Lab: JAH REICH [facility] [address] [address] [facility] LIPID PROFILE CHOLESTEROL [MASS/VOLUM E] IN SERUM OR PLASMA 268 mg/dL 0 [...] Oct 04, 2024 10:35 AM Reporting Lab: [facility] [address] [address] Performing Lab: ASHLEYEmy [address] [address] [facility] LIPID PROFILE TRIGLYCERID E [MASS/VOLUM E] IN SERUM OR PLASMA 379 mg/dL 0 [...] Oct 04, 2024 10:35 AM Reporting Lab: [address] [address] Performing Lab: [address] [address] [facility] LIPID PROFILE CHOLESTEROL IN HDL [MASS/VOLUM E] IN SERUM OR PLASMA 38 mg/dL 40 [...] 2024 10:35 AM Reporting Lab: JAH REICH [address] [address] Performing Lab: JAH REICH [address] [address] [facility] LIPID PROFILE CHOLESTEROL IN LDL [MASS/VOLUM E] IN SERUM OR PLASMA BY DIRECT ASSAY [...] 2024 10:35 AM Reporting Lab: JAH REICH [address] [address] Performing Lab: JAH REICH [address] [address] [facility] PANEL 5 CREATININE [MASS/VOLUM E] IN SERUM OR PLASMA 1.24 mg/dL 0.72 [...] 2024 10:35 AM Reporting Lab: JAH REICH [address] [address] Performing Lab: JAH REICH [address] [address] [facility] PANEL 5 UREA NITROGEN [MASS/VOLUM E] IN SERUM OR PLASMA 19 mg/dL 9 - 25 10/04 Specimen Type: PLASMA Comment: Estimated Glomerular [...] 2024 10:35 AM Reporting Lab: JAH REICH [address] [address] Performing Lab: JAH REICH [address] [address] [facility] PANEL 5 GLUCOSE [MASS/VOLUM E] IN SERUM OR PLASMA 94 mg/dL 74 [...] 2024 10:35 AM Reporting Lab: JAH REICH [address] [address] Performing Lab: JAH REICH [address] [address] [facility] PANEL 5 SODIUM [MOLES/VOLU ME] IN SERUM OR PLASMA 140 mmol/L 136 [...] 2024 10:35 AM Reporting Lab: JAH REICH [address] [address] Performing Lab: JAH REICH [address] [address] [facility] PANEL 5 POTASSIUM [MOLES/VOLU ME] IN SERUM OR PLASMA 4.7 mmol/L 3.5 [...] 2024 10:35 AM Reporting Lab: JAH REICH [address] [address] Performing Lab: JAH REICH [address] [address] [facility] PANEL 5 CHLORIDE [MOLES/VOLU ME] IN SERUM OR PLASMA 109 mmol/L 98 [...] 2024 10:35 AM Reporting Lab: JAH REICH [address] [address] Performing Lab: JAH REICH [address] [address] [facility] PANEL 5 CARBON DIOXIDE, TOTAL [MOLES/VOLU ME] IN SERUM OR PLASMA 28 mmol/L - 10/04 Specimen Type: PLASMA Comment: Estimated [...] 2024 10:35 AM Reporting Lab: [facility] RE[facility] [address] [address] Performing Lab: JAH REICH [facility] [address] [facility] [address] [facility] PANEL 5 CALCIUM [MASS/VOLUM E] IN SERUM OR PLASMA 9.2 mg/dL 8.4 [...] 2024 10:35 AM Reporting Lab: [facility] RE[facility] [address] [address] Performing Lab: JAH REICH [facility] [address] [address] [facility] PANEL 5 PROTEIN [MASS/VOLUM E] IN SERUM OR PLASMA 7.4 g/dL 6.4 [...] 2024 10:35 AM Reporting Lab: [facility] RE[facility] [address] [address] Performing Lab: JAH [address] [address] [facility] PANEL 5 ALBUMIN [MASS/VOLUM E] IN SERUM OR PLASMA 3.6 g/dL 3.5 [...] Oct 04, 2024 10:35 AM Reporting Lab: [place] [address] [address] Performing Lab: ASHLEYEmy [address] [address] [facility] PANEL 5 BILIRUBIN.T OTAL [MASS/VOLUM E] IN SERUM OR PLASMA 0.4 mg/dL 0.2 [...] 2024 10:35 AM Reporting Lab: JAH REICH [address] [address] Performing Lab: JAH REICH [address] [address] [facility] PANEL 5 ASPARTATE AMINOTRANSF ERASE [ENZYMATIC ACTIVITY/VO LUME] IN SERUM OR PLASMA 24 U/L 5 [...] 2024 10:35 AM Reporting Lab: JAH REICH [address] [address] Performing Lab: JAH REICH [address] [address] [facility] PANEL 5 ALANINE AMINOTRANSF ERASE [ENZYMATIC ACTIVITY/VO LUME] IN SERUM OR PLASMA 17 U/L 0 [...] 2024 10:35 AM Reporting Lab: JAH RE[facility] [address] [address] Performing Lab: JAH REICH [address] [address] [facility] PANEL 5 ANION GAP 3 IN [...] 2024 10:35 AM Reporting Lab: JAH REICH [address] [address] Performing Lab: JAH REICH [address] [address] [facility] PANEL 5 ALKALINE PHOSPHATASE [ENZYMATIC ACTIVITY/VO LUME] IN SERUM OR PLASMA 65 U/L 40 [...] 2024 10:35 AM Reporting Lab: JAH REICH [address] [address] Performing Lab: JAH REICH [address] [address] [facility] PANEL 5 GLOMERULAR FILTRATION RATE/1.73 SQ M.PREDICTED [VOLUME RATE/AREA] IN SERUM, PLASMA OR BLOOD BY CREATININE- BASED FORMULA (CKD-EPI 2020) 61 10/04 Specimen Type: [...] 2024 10:35 AM Reporting Lab: JAH RE[facility] [address] [address] Performing Lab: JAH REICH [address] [address] [facility] TSH THYROTROPIN [UNITS/VOLU ME] IN SERUM OR PLASMA 1.7320 m[IU]/ mL 0.3500 - 4.9400 10/04 Specimen Type: PLASMA [...] 2024 10:35 AM Reporting Lab: JAH REICH [address] [address] Performing Lab: JAH REICH [address] [address] [facility] LIPID PROFILE CHOLESTEROL [MASS/VOLUM E] IN SERUM OR PLASMA 166 mg/dL 0 [...] 2023 03:51 PM Reporting Lab: JAH RE[facility] [address] [address] Performing Lab: JAH REICH [address] [address] [facility] LIPID PROFILE TRIGLYCERID E [MASS/VOLUM E] IN SERUM OR PLASMA 295 mg/dL 0 [...] 2023 03:51 PM Reporting Lab: JAH RE[facility] [address] [address] Performing Lab: JAH REICH [address] [address] [facility] LIPID PROFILE CHOLESTEROL IN HDL [MASS/VOLUM E] IN SERUM OR PLASMA 36 mg/dL 40 [...] 2023 03:51 PM Reporting Lab: JAH DAMIR [address] [address] Performing Lab: JAH REICH [address] [address] [facility] LIPID PROFILE CHOLESTEROL IN LDL [MASS/VOLUM E] IN SERUM OR PLASMA BY DIRECT ASSAY [...] Jun 22, 2023 03:51 PM Reporting Lab: AARONEmy REICH [address] [address] Performing Lab: DELONANDRE REICH [address] [address] [facility] PANEL 5 CREATININE [MASS/VOLUM E] IN SERUM OR PLASMA 1.39 mg/dL 0.72 [...] Jun 22, 2023 03:51 PM Reporting Lab: [address] [address] Performing Lab: [address] [address] [facility] PANEL 5 UREA NITROGEN [MASS/VOLUM E] IN SERUM OR PLASMA 15 mg/dL 9 06/28 Specimen Type: PLASMA Comment: Estimated Glomerular [...] 2023 03:51 PM Reporting Lab: JAH RE[facility] [address] [address] Performing Lab: JAH RE[facility] [address] [address] [facility] PANEL 5 GLUCOSE [MASS/VOLUM E] IN SERUM OR PLASMA 100 mg/dL 74 [...] 2023 03:51 PM Reporting Lab: JAH RE[facility] [address] [address] Performing Lab: JAH RE[facility] [address] [address] [facility] PANEL 5 SODIUM [MOLES/VOLU ME] IN SERUM OR PLASMA 140 mmol/L 136 [...] 2023 03:51 PM Reporting Lab: JAH RE[facility] [address] [address] Performing Lab: JAH REICH [address] [address] [facility] PANEL 5 POTASSIUM [MOLES/VOLU ME] IN SERUM OR PLASMA 4.3 mmol/L 3.5 [...] 2023 03:51 PM Reporting Lab: JAH RE[facility] [address] [address] Performing Lab: JAH REICH [address] [address] [facility] PANEL 5 CHLORIDE [MOLES/VOLU ME] IN SERUM OR PLASMA 108 mmol/L 98 [...] 2023 03:51 PM Reporting Lab: JAH RE[facility] [address] [address] Performing Lab: JAH REICH [address] [address] [facility] PANEL 5 CARBON DIOXIDE, TOTAL [MOLES/VOLU ME] IN SERUM OR PLASMA 26 mmol/L - [...] 2023 03:51 PM Reporting Lab: JAH RE[facility] [address] [address] Performing Lab: JAH REICH [address] [address] [facility] PANEL 5 CALCIUM [MASS/VOLUM E] IN SERUM OR PLASMA 9.4 mg/dL 8.4 [...] 2023 03:51 PM Reporting Lab: JAH RE[facility] [address] [address] Performing Lab: JAH REICH [address] [address] [facility] PANEL 5 PROTEIN [MASS/VOLUM E] IN SERUM OR PLASMA 7.8 g/dL 6.4 [...] 2023 03:51 PM Reporting Lab: JAH RE[facility] [address] [address] Performing Lab: JAH REICH [address] [address] [facility] PANEL 5 ALBUMIN [MASS/VOLUM E] IN SERUM OR PLASMA 3.5 g/dL 3.5 [...] 2023 03:51 PM Reporting Lab: [facility] RE[facility] [address] [address] Performing Lab: JAH REICH [facility] [address] [address] [facility] PANEL 5 BILIRUBIN.T OTAL [MASS/VOLUM E] IN SERUM OR PLASMA 0.3 mg/dL 0.2 [...] 2023 03:51 PM Reporting Lab: [facility] RE[facility] [address] [address] Performing Lab: JAH REICH [facility] [address] [address] [facility] PANEL 5 ASPARTATE AMINOTRANSF ERASE [ENZYMATIC ACTIVITY/VO LUME] IN SERUM OR PLASMA 26 U/L 5 [...] Jun 22, 2023 03:51 PM Reporting Lab: [address] [address] Performing Lab: [address]ON[address] [address] [facility] PANEL 5 ALANINE AMINOTRANSF ERASE [ENZYMATIC ACTIVITY/VO LUME] IN SERUM OR PLASMA 39 U/L 0 [...] 2023 03:51 PM Reporting Lab: JAH REICH [address] [address] Performing Lab: JAH REICH [address] [address] [facility] PANEL 5 ANION GAP 3 IN [...] 2023 03:51 PM Reporting Lab: JAH REICH [address] [address] Performing Lab: JAH REICH [address] [address] [facility] PANEL 5 ALKALINE PHOSPHATASE [ENZYMATIC ACTIVITY/VO LUME] IN SERUM OR PLASMA 74 U/L 40 [...] 2023 03:51 PM Reporting Lab: JAH REICH [address] [address] Performing Lab: JAH REICH [address] [address] [facility] 5 GLOMERULAR FILTRATION RATE/1.73 SQ M.PREDICTED [VOLUME RATE/AREA] IN SERUM, PLASMA OR BLOOD BY CREATININE- BASED FORMULA (CKD-EPI 2020) 53 06/28 Specimen Type: [...] 2023 03:51 PM Reporting Lab: JAH REICH [address] [address] Performing Lab: JAH REICH [address] [address] [facility] Vital Signs Combined list of inpatient and outpatient Vital Signs from Department of Defense and Veterans Affairs, ranging from 12 months to all on record, depending upon the facility. Vital Sign Value Date Comments Source SYSTOLIC BLOOD PRESSURE 132 10/04/2024 10:19:46 [facility] DIASTOLIC BLOOD PRESSURE 82 10/04/2024 10:19:46 [facility] PULSE OXIMETRY 96 10/04/2024 10:19:46 [facility] WEIGHT 201 10/04/2024 10:19:46 [facility] BMI 28 kg/m2 10/04/2024 10:19:46 [facility] PAIN 0 10/04/2024 10:19:46 [facility] TEMPERATURE 97.6 10/04/2024 10:19:46 ADRIANA PRECIADO [facility] PULSE 69 10/04/2024 10:19:46 MARY KATE LAM [facility] RESPIRATION 16 10/04/2024 10:19:46 ADRIANA PRECIADO [facility] Encounters Combined list of: 1) Encounters from [facility] Affairs facilities going backup to the last 18 months, not all [place] inpatient encounters are included; 2) Encounters from the Department of [facility] facilities going backup to 280 months. Location Location Details Encounter Type Encounter Number Reason For Visit Attending Provider ADM Date DC Date Status Disposition Source [facility] OFFICE O/P EST MOD 30 MIN [id number] Diagnos is: ICD-10- CM F43.12 Post-tr aumatic stress disorde r, chronic Slava CROCKERT C 08/29 [place] Outpatient Encounter [id number] 10/02 [place] OFF[facility] O/P EST MOD 30 MIN [id number] Diagnos is: ICD-10- CM I25.10 Athscl heart disease of [place] coronar y artery w/o ang pctrs WES MEJIA L 10/29 [place] [facility] OFFICE O/P EST MOD 30 MIN [id number] Diagnos is: ICD-10- CM H35.313 1 Nexdtve age-rel ated mclr mg avilez al, early dry stage HAILAITH,JAMESON LLIP K 11/21 [place] [facility] SELF-MGMT EDUC & TRA[place] 1 [place] [address]-2.59 [id number] Diagnos is: ICD-10- CM G47.33 Obstruc tive sleep apnea (adult) (pediat erin) JUAN C KOTHARI 12/03 [place] [facility] OFFICE O/P EST MOD 30 MIN 95023-0.59 [id number] Diagnos is: ICD-10- CM F43.12 Post-tr aumatic stress disorde r, chronic BEENDERS,B RENT C 12/06 [place] Outpatient Encounter [id number] LUDWIGANGELY Jones 12/07 [place] [facility] Outpatient Encounter [id number] 01/02 [place] [facility] Outpatient Encounter [id number] uAgustine GARCIA 01/28 [place] [facility] HC PRO PHONE CALL 5-10 MIN [id number] Diagnos is: ICD-10- CM R68.89 Other general symptom s and signs RUBEN ANSARI 01/28 [place] [facility] HC PRO PHONE CALL 5-10 MIN [id number] Diagnos is: ICD-10- CM R68.89 Other general symptom s and signs RUBEN ANSARI 02/11 [place] [facility] OFFICE O/P EST MOD 30 MIN 27101-7.59 [id number] Diagnos is: ICD-10- CM F43.12 Post-tr aumatic stress disorde r, chronic BEENDERS,B RENT C 02/28 [place] OFFICE O/P EST MOD 30 MIN 39399-6.59 [id number] Diagnos is: ICD-10- CM F43.12 Post-tr aumatic stress disorde r, chronic BEENDERS,B RENT C 08/15 [place] Outpatient Encounter [id number] 09/02 [place] OFFICE O/P EST MOD 30 MIN 50805-6.59 [id number] Diagnos is: ICD-10- CM I25.10 Athscl heart disease of [place] coronar y artery w/o ang pctrs WES MEJIA L 10/04 [place] [facility] Outpatient Encounter [id number] 10/30 [place] [facility] Outpatient Encounter [id number] 28 11/15 [place] EDU&TRN PT SELF-MGMT NQHP 1 [id number] Diagnos is: ICD-10- CM G47.33 Obstruc tive sleep apnea (adult) (pediat erin) JUAN C KOTHARI 12/03 [place] [facility] Outpatient Encounter [id number] WES MEJIA L 12/04 [place] [facility] Social History Combined list of available smoking, tobacco, and other social history from [employer] and [facility] Affairs facilities. Social History Type Response Date Comment Sourc e Tobacco smoking status NHIS VA-TOBACCO USE FORMER CIGARETTES 10/04/2024 [facility] History of tobacco use LA-TOBACCO NEVER USED OTHER TYPE 10/04/2024 [facility] History of tobacco use LA-TOBACCO FORMER USER 10/30/2023 [facility] History of tobacco use LA-TOBACCO FORMER USER 09/14/2022 [facility] History of tobacco use LA-TOBACCO FORMER USER 03/16/2021 [facility]
--- OUTSIDE RECORDS SUMMARY | 2025-01-21 10:45 | XMS_ITS | Encounter Summary ---
Author Organization Healthcare Address [address] [place] [address] Care Team Providers Care Tricot Knitter Name Role Phone Alireza Brizuela MD Primary Care Provider [phone] Reason for Referral * Imaging (Routine) - Closed Specialty Diagnoses / Procedures Referred By Minh shya Referred To Contact Radiology Diagnoses Coronary artery abnormality Procedures CT Angio Cardiac Coronary Arteries Gillian Sarkar [address] [place] [address] Phone: tel: fax: Referral ID Status Reason Start Date Expiration Date Visits Re quested Visits Authorized [id number] Closed 01/21/2025 07/23/2026 1 1 Reason for Visit * Imaging (Routine) - Closed Specialty Diagnoses / Procedures Referred By Minh shay Referred To Contact Radiology Diagnoses Coronary artery abnormality Procedures CT Angio Cardiac Coronary Arteries [place]ian [place] [address] Phone: tel: fax: Referral ID Status Reason Start Date Expiration Date Visits Re quested Visits Authorized [id number] Closed 01/21/2025 07/23/2026 1 1 Encounter Details Date Type Department Care Team (Late st Contact Info) Description 01/21/2025 10:45 AM EDT - 01/21/2025 11:59 PM EDT Hospital Encounter [facility] [address] [place] [address] Della Shelley, RN [facility] Coronary artery abnormality Discharge Disposition: Home or Self Care Social History Tobacco Use Types Packs/Day Years Used Date Smoking Tobacco: Former Cigarettes Smokeless Tobacco: Never Sex and Gender Information Value Date Recorded Sex Assigned at Not on file Legal Sex Male 6:55 PM EDT Gender Identity Not on file Sexual Orientation Not on file documented as of this encounter Last Filed Vital Signs Vital Sign Reading Time Taken Comments Blood Pressure 84/57 01/21/2025 11:17 AM EDT Pulse 55 01/21/2025 11:17 AM EDT Temperature - - Respiratory Rate - - Oxygen Saturation - - Inhaled Oxygen Concentration - - Weight - - Height - - Body Mass Index - - documented in this encounter Medications at Time of Discharge aspirin 81 MG EC tablet Take 1 tablet by mouth 1 time each day. clopidogrel (Plavix) 75 MG tablet Take 1 tablet by mouth 1 time each day. 07/29/2024 cyanocobalamin 1000 MCG tablet Take 1 tablet by mouth 1 time each day. metoprolol tartrate (Lopressor) 50 MG tablet Take 1 tablet by mouth 1 time. 12/02/2024 mirtazapine (Remeron) 30 MG tablet Take 1 tablet by mouth. 02/29/2024 promethazine (Phenergan) 25 MG tablet Take 1 tablet by mouth every 6 hours as needed for nausea or vomiting. 05/30/2024 rosuvastatin (Crestor) 5 MG tablet Take 1 tablet by mouth 1 time each day. 10/08/2024 rosuvastatin (Crestor) 5 MG tablet Take 1 tablet by mouth nightly. 02/01/2024 documented as of this encounter Plan of Treatment Not on file documented as of this encounter Procedures Procedure Name Priority Date/Time Associated Diagnosis Comments CT ANGIO CARDIAC CORONARY ARTERIES Routine 01/21/2025 11:20 AM EDT Coronary artery abnormality documented in this encounter Results * CT Angio Cardiac Coronary Arteries (01/21/2025 11:20 AM EDT) Anatomical Region Laterality Modality Heart Computed Tomogra phy Impressions 01/21/2025 1:21 PM EDT 1. There is a stent in the proximal LAD and coil in the fistula from proximal LAD to MPA without contrast filling in the MPA suggestive of complete occlusion of the fistula. 2. Non obstructive (<50% stenosis) in the rest of the coronary arteries. Critical Result: No. COMMUNICATION: Per this written report. Preliminary report signed by Danae Barahona MD on 01/21/2025 1:07 PM By electronically signing this report, I, the attending physician, attest that I have personally reviewed the images/data for the above examination(s) and agree with the final edited report. Drafted by Danae Barahona MD on 01/21/2025 12:22 PM Final report signed by Jg Gaspar on 01/21/2025 1:21 PM Narrative 01/21/2025 1:21 PM EDT CLINICAL INFORMATION: A 75 year-old Male with a past medical history of coronary fistula (LAD-MPA) who presents for coronary CTA for workup of chest pain with clinical concern for myocardial ischemia and assessment post coiling of the fistula. Height: 180.3 cm Weight: 93 kg Baseline Heart Rate on Arrival: 57 beats/min Relevant Cardiac Diagnostic Tests: None available Comparison Imaging: coronary CTA 01/13/2023 SCAN TECHNIQUE: Pre-Medication: The patient received the following medications prior to the Cardiac CT: 0.8mg sublingual nitroglycerin. The average heart rate at the time of acquisition was 55 bpm (53 bpm to 57 bpm) and regular. Image Acquisition and Reconstruction: A Dual source 192 MDCT scanner (Som[employer] Force, [employer]) was used for data acquisition. A non-contrast coronary calcium scan was initially performed. Bolus tracking in the ascending aorta with a threshold of 180 HU was performed. Immediately afterwards, ECG synchronized Cardiac CT was then performed from cardiac base to apex using prospective gating. A total of 100 mL Omnipaque 350mgI/mL contrast media was administered followed by a saline flush using a biphasic injection protocol. Transaxial images were reconstructed at 0.75 mm slice thickness. Data was reviewed interactively on an advanced workstation capable of 2 and 3 dimensional displays in all conventional reconstruction formats including multiplanar reformations, maximum intensity projections, curved multiplanar reformations, and volume rendered reconstructions. Selected routine images displaying relevant coronary anatomy and pathology were saved and sent to PACS. Total DLP (Dose-Length Product): 452.09 mGy.cm. Please note: The reported value represents the total of one or more individual components during the CT acquisition on this date and at this time, and as such, the same value may appear in more than one CT report depending on the interpreting/reporting physicians. Technical Quality: Overall image quality is Good, with minor artifacts that do not significantly impact diagnostic quality. Coronary artery opacification is Excellent. FINDINGS: --- Coronary CT Angiography --- The coronaries have normal origin and proximal course. The coronary arterial system is right dominant. Left Main: The left main originates from the left sinus of Valsalva and bifurcates into the left anterior descending and left circumflex arteries. No visible plaque or stenosis. Left Anterior Descending: The LAD arises from the left main, courses down the anterior interventricular groove, gives off 2 notable diagonal branches, and terminates near the apex. There is a stent in the proximal segment of the LAD with a vascular coil in a branch that takes off in the middle of the stent. There is no contrast distal to the coil or in the main pulmonary artery during the scan, suggestive of complete occlusion of the fistula. Cannot accurately assess the patency of the proximal LAD stent due to blooming artifact. No obvious plaques noted in the remainder of LAD distal to the stent. Left Circumflex: The LCx arises from the left main, gives off 2 notable obtuse marginal branches, and terminates in the left AV groove. There is a calcified plaque at the ostium of the LCx causing minimal stenosis. Right Coronary Artery: The RCA originates from the right sinus of Valsalva and is dominant for posterior circulation, gives off acute marginal branches, and distally bifurcates into the posterior descending artery and a branching posterolateral vessel. There are mixed plaques in the proximal and distal RCA causing minimal stenosis. Mixed plaque at the ostium of the PL branch causing mild stenosis. --- Non Coronary Cardiac Findings --- Normal cardiac chamber size. No significant pericardial effusion, thickening, or calcification. Normal interatrial and interventricular septum. Grossly normal aortic valve and mitral valve. --- Extra Cardiac Structures --- Mild aortic root and ascending aortic calcification. Central and branch pulmonary arteries in the field of view are unremarkable. Calcified right hilar and right subcarinal lymph nodes. Emphysematous changes again noted in both lungs. No suspicious pulmonary nodules. No suspicious lesion in the visualized portion of the upper abdomen. Degenerative changes of the thoracic spine. There are no obvious significant extra-cardiac findings in the available limited views of the lungs, mediastinum, and upper abdomen. Procedure Note Jg Gaspar MD - 01/21/2025 CLINICAL INFORMATION: A 75 year-old Male with a past medical history of coronary fistula(LAD-MPA) who presents for coronary CTA for workup of chest pain withclinical concern for myocardial ischemia and assessment post coiling ofthe fistula. Height: 180.3 cm Weight: 93 kg Baseline Heart Rate on Arrival: 57 beats/min Relevant Cardiac Diagnostic Tests: None available Comparison Imaging: coronary CTA 01/13/2023 SCAN TECHNIQUE: Pre-Medication: The patient received the following medications prior to the Cardiac CT:0.8mg sublingual nitroglycerin. The average heart rate at the time of acquisition was 55 bpm (53 bpm to 57bpm) and regular. Image Acquisition and Reconstruction: A Dual source 192 MDCT scanner (Som[employer] Force, [employer])was used for data acquisition. A non-contrast coronary calcium scan wasinitially performed. Bolus tracking in the ascending aorta with athreshold of 180 HU was performed. Immediately afterwards, ECGsynchronized Cardiac CT was then performed from cardiac base to apex usingprospective gating. A total of 100 mL Omnipaque 350mgI/mL contrast mediawas administered followed by a saline flush using a biphasic injectionprotocol. Transaxial images were reconstructed at 0.75 mm slice thickness.Data was reviewed interactively on an advanced workstation capable of 2and 3 dimensional displays in all conventional reconstruction formatsincluding multiplanar reformations, maximum intensity projections, curvedmultiplanar reformations, and volume rendered reconstructions. Selectedroutine images displaying relevant coronary anatomy and pathology weresaved and sent to PACS. Total DLP (Dose-Length Product): 452.09 mGy.cm. Please note: The reportedvalue represents the total of one or more individual components during theCT acquisition on this date and at this time, and as such, the same valuemay appear in more than one CT report depending on theinterpreting/reporting physicians. Technical Quality: Overall image quality is Good, with minor artifacts that do notsignificantly impact diagnostic quality. Coronary artery opacification is Excellent. FINDINGS: --- Coronary CT Angiography --- The coronaries have normal origin and proximal course. The coronaryarterial system is right dominant. Left Main: The left main originates from the left sinus of Valsalva andbifurcates into the left anterior descending and left circumflex arteries.No visible plaque or stenosis. Left Anterior Descending: The LAD arises from the left main, courses downthe anterior interventricular groove, gives off 2 notable diagonalbranches, and terminates near the apex. There is a stent in the proximalsegment of the LAD with a vascular coil in a branch that takes off in themiddle of the stent. There is no contrast distal to the coil or in themain pulmonary artery during the scan, suggestive of complete occlusion ofthe fistula. Cannot accurately assess the patency of the proximal LADstent due to blooming artifact. No obvious plaques noted in the remainderof LAD distal to the stent. Left Circumflex: The LCx arises from the left main, gives off 2 notableobtuse marginal branches, and terminates in the left AV groove. There is acalcified plaque at the ostium of the LCx causing minimal stenosis. Right Coronary Artery: The RCA originates from the right sinus of Valsalvaand is dominant for posterior circulation, gives off acute marginalbranches, and distally bifurcates into the posterior descending artery patrick branching posterolateral vessel. There are mixed plaques in the proximaland distal RCA causing minimal stenosis. Mixed plaque at the ostium of thePL branch causing mild stenosis. --- Non Coronary Cardiac Findings --- Normal cardiac chamber size. No significant pericardial effusion,thickening, or calcification. Normal interatrial and interventricularseptum. Grossly normal aortic valve and mitral valve. --- Extra Cardiac Structures --- Mild aortic root and ascending aortic calcification. Central and branchpulmonary arteries in the field of view are unremarkable. Calcified righthilar and right subcarinal lymph nodes. Emphysematous changes again notedin both lungs. No suspicious pulmonary nodules. No suspicious lesion inthe visualized portion of the upper abdomen. Degenerative changes of thethoracic spine. There are no obvious significant extra-cardiac findings inthe available limited views of the lungs, mediastinum, and upperabdomen. IMPRESSION: 1. There is a stent in the proximal LAD and coil in the fistula fromproximal LAD to MPA without contrast filling in the MPA suggestive ofcomplete occlusion of the fistula. 2. Non obstructive (<50% stenosis) in the rest of the coronary arteries. Critical Result: No. COMMUNICATION: Per this written report. Preliminary report signed by Danae Barahona MD on 01/21/2025 1:07 PM By electronically signing this report, I, the attending physician, ann marie I have personally reviewed the images/data for the aboveexamination(s) and agree with the final edited report. 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 documented in this encounter Administered Medications Inactive Administered Medications - up to 3 most recent administrations Medication Order MAR Action Action Date Dose Rate Site iohexol (OMNIPaque) 350 MG/ML injection 100 mL 100 mL, Intravenous, Once in imaging, 1 dose, Starting on Mon01/21/25 at 1104, Until Mon01/21/25 at 1105, Routine, Imaging Protocol Orders Given 01/21/2025 11:05 AM EDT 80 mL nitroglycerin (Nitrostat) SL tablet 0.8 mg 0.8 mg, Sublingual, Every 5 min PRN, Starting on Mon01/21/25 at 1050, Until Mon01/21/25 at 2249, Routine, Intraprocedure, chest pain, oo Given 01/21/2025 11:08 AM EDT 0.8 mg documented in this encounter Care Teams Tricot Knitter Relationship Specialty Start Date End Date Alireza Brizuela MD [address] [place] [address] [address] [place] [address] PCP - General 11/06/20 documented as of this encounter
--- OUTSIDE RECORDS SUMMARY | 2025-02-18 07:49 | XMS_ITS | Encounter Summary ---
Author Organization [facility] Address [address] [place] [id number] Care Team Providers Care Mathematics Academic Chair Name Role Phone Alireza Brizuela MD Primary Care Provider [phone] Encounter Details Date Type Department Care Team (Late Contact Info) Description 05/01/2019 Telephone [facility] FAMILY MEDICINE [address] [facility] [place] [address] Julio Barnard MD [address] [facility] [place] [address] Social History Tobacco Use Types Packs/Day Years Used Date Smoking Tobacco: Former Smokeless Tobacco: Never Alcohol Use Standard Drinks/Week Comments Yes 0 (1 standard drink = 0.6 oz pur e alcohol) occasional PHQ-2 Answer Date Recorded PHQ-2 Score 0 08/27/2018 Sex and Gender Information Value Date Recorded Sex Assigned at Not on file Legal Sex Male 1:44 PM EDT Gender Identity Not on file Sexual Orientation Not on file documented as of this encounter Plan of Treatment Upcoming Encounters Date Type Department Care Team (Late Contact Info) Description 06/02/2025 10:00 AM EST Office Visit [facility] CARDIOLOGY [address] [place] [address] Gillian Sarkar MD [address] [place] [address] documented as of this encounter Visit Diagnoses Not on filedocumented in this encounter Additional Health Concerns Infection Onset Date Last Indicated Resolved Time COVID Screen (preop/placement) 06/17/2023 06/17/2023 06/17/2023 11:40 PM EST COVID (rule out) 07/24/2024 07/24/2024 07/24/2024 9:18 PM EST Influenza 07/24/2024 07/24/2024 08/23/2024 9:08 PM EST Assessment Noted Time A fall risk assessment has been complete d for the patient 08/27/2018 2:04 PM EST documented as of this encounter Care Teams Mathematics Academic Chair Relationship Specialty Start Date End Date Alireza Brizuela MD Critical access hospital[facility] [address] [place] [address] PCP - General Internal Medicine 12/12/22 documented as of this encounter
--- OUTSIDE RECORDS SUMMARY | 2025-02-18 07:49 | XMS_ITS | Clinical Summary ---
Author Organization [facility] Address [address] [place] [address] Care Team Providers Care Welding Machine Operator Thermit Name Role Phone Alireza Brizuela MD Primary Care Provider [phone] Allergies No known active allergies Medications aspirin 81 MG EC tablet Take 1 tablet by mouth 1 time each day. Active clopidogrel (Plavix) 75 MG tablet Take 1 tablet by mouth 1 time each day. 07/29/2024 Active cyanocobalamin 1000 MCG tablet Take 1 tablet by mouth 1 time each day. Active metoprolol tartrate (Lopressor) 50 MG tablet Take 1 tablet by mouth 1 time. 12/02/2024 Active mirtazapine (Remeron) 30 MG tablet Take 1 tablet by mouth. 02/29/2024 Active promethazine (Phenergan) 25 MG tablet Take 1 tablet by mouth every 6 hours as needed for nausea or vomiting. 05/30/2024 Active rosuvastatin (Crestor) 5 MG tablet Take 1 tablet by mouth 1 time each day. 10/08/2024 Active rosuvastatin (Crestor) 5 MG tablet Take 1 tablet by mouth nightly. 02/01/2024 Active Encounters Date Type Department Care Team Description 01/21/2025 10:45 AM EDT - 01/21/2025 11:59 PM EDT Hospital Encounter [facility] [address] [place] [address] Della Shelley, RN Coronary artery abnormality Discharge Disposition: Home or Self Care 01/21/2025 Travel 2025 Travel 2025 Telephone [facility] [address] [place] [id number] Ana Cronin RN from Last 3 Months Social History Tobacco Use Types Packs/Day Years Used Date Smoking Tobacco: Former Cigarettes Smokeless Tobacco: Never Tobacco Cessation:Counseling Given: Not Answered Sex and Gender Information Value Date Recorded Sex Assigned at Not on file Legal Sex Male 6:55 PM EDT Gender Identity Not on file Sexual Orientation Not on file Last Filed Vital Signs Vital Sign Reading Time Taken Comments Blood Pressure 84/57 01/21/2025 11:17 AM EDT Pulse 55 01/21/2025 11:17 AM EDT Temperature - - Respiratory Rate - - Oxygen Saturation 93% 01/13/2023 9:13 AM EDT Inhaled Oxygen Concentration - - Weight 93 kg (205 lb) 01/13/2023 8:00 AM EDT Height 180.3 cm (5' 11 ) 01/13/2023 8:00 AM EDT Body Mass Index 28.59 01/13/2023 8:00 AM EDT Plan of Treatment Health Maintenance Due Date Last Done Comments [facility]-Depression Screening 1949 [facility]-Hepatitis C Screening 1950 [facility]-Medicare Annual Wellness (AWV) 1950 [facility]-/Child/Adol SDOH Screenings 1949 [facility]-Obesity Intervention 1955 [facility]- SDOH Screenings 1967 [facility]-Adult SDOH Screenings 1967 [facility]-DTaP,Tdap,and Td Vaccine s (1 - Tdap) 01/15/1968 [facility]-Zoster Vaccines (1 of 2) 1999 [facility]-Pneumococcal Vaccine: 50 + Years (2 of 2 - PPSV23) 09/01/2020 09/02/2019 [id number] Vaccine (3 - Moderna risk series) 09/30/2020 09/02/2020, 08/05/2020 [facility]-RSV Vaccine: 60+ Years o r (1 - 1-dose 75+ series) 01/15/2024 [facility]-Influenza Vaccine (#1) 2025 HPV Vaccines Aged Out No longer eligi ble based on patient's age to complete this topic [facility]-HIB Vaccines Aged Out No longer e ligible based on patient's age to complete this topic [facility]-Hepatitis A Vaccines Aged Out No longer eligible based on patient's age to complete this topic [facility]-IPV Vaccines Aged Out No longer e ligible based on patient's age to complete this topic [facility]-Rotavirus Vaccines Aged Out No lo nger eligible based on patient's age to complete this topic Procedures Procedure Name Priority Date/Time Associated Diagnosis Comments CT ANGIO CARDIAC CORONARY ARTERIES Routine 01/21/2025 11:20 AM EDT Coronary artery abnormality from Last 3 Months Results * CT Angio Cardiac Coronary Arteries [...] lungs, mediastinum, and upper abdomen. Procedure Note gJ Gaspar MD - 01/21/2025 CLINICAL INFORMATION: A [...] 192 MDCT scanner (Som[employer] Force, [employer])was used for data acquisition. A non-contrast [...] signing this report, I, the attending physician, attestthat I have personally reviewed the images/data for the aboveexamination(s) and agree with the final edited report. Drafted by Danae Barahona MD on 01/21/2025 12:22 PM Final report signed by Jg Gaspar on 01/21/2025 1:21 PM Gillian Sarkar IMG CT PROCEDURES Final Result from Last 3 Months Insurance MEDICARE [facility] Care Teams Welding Machine Operator Thermit Relationship Specialty Start Date End Date Alireza Brizuela MD [address] [place] [address] [address] [place] [address] PCP - General 11/06/20
--- OUTSIDE RECORDS SUMMARY | 2025-02-18 07:49 | XMS_ITS | Encounter Summary ---
Author Organization Healthcare Address [address] [place] [id number] Care Team Providers Care Personal Consultant Name Role Phone Alireza Brizuela MD Primary Care Provider Encounter Details Date Type Department Care Team (Latest Contact Info) Description 01/21/2025 Travel Social History Tobacco Use Types Packs/Day Years Used Date Smoking Tobacco: Former Cigarettes Smokeless Tobacco: Never Sex and Gender Information Value Date Recorded Sex Assigned at Not on file Legal Sex Male 6:55 PM EDT Gender Identity Not on file Sexual Orientation Not on file documented as of this encounter Plan of Treatment Not on file documented as of this encounter Visit Diagnoses Not on filedocumented in this encounter Care Teams Personal Consultant Relationship Specialty Start Date End Date Alireza Brizuela MD [address] [facility] [address] [facility] [place] [address] PCP - General 11/06/20 documented as of this encounter
--- OUTSIDE RECORDS SUMMARY | 2025-02-18 07:50 | XMS_ITS | Encounter Summary ---
Author Organization Healthcare Address [address] [place] [address] Care Team Providers Care Dry Heat Cabinet Attendant Name Role Phone Alireza Brizuela MD Primary Care Provider [phone] Encounter Details Date Type Department Care Team (Late st Contact Info) Description 2025 Telephone [facility] [address] [place] [address] Ana Cronin, RN [facility] Social History Tobacco Use Types Packs/Day Years [...] on filedocumented in this encounter Care Teams Dry Heat Cabinet Attendant Relationship Specialty Start Date End Date Alireza Brizuela MD [address] [facility] [address] [place] [address] PCP - General 11/06/20 documented as of this encounter
--- OUTSIDE RECORDS SUMMARY | 2025-02-18 07:50 | XMS_ITS | Encounter Summary ---
Author Organization [facility] Address [address] [place] [address] Care Team Providers Care Collection Development Librarian Name Role Phone Alireza Brizuela MD Primary Care Provider [phone] Encounter Details Date Type Department Care Team (Late st Contact Info) Description 02/03/2025 Telephone [facility] [address] [place] [address] Gillian Sarkar MD [address] [place] [address] Social History Tobacco Use Types Packs/Day Years Used Date Smoking Tobacco: Former Cigarettes 2.5 7 1 966 - 1972 Passive Smoke Exposure: Past Smokeless Tobacco: Never Alcohol Use Standard Drinks/Week Comments Yes 0 (1 standard drink = 0.6 oz pur e alcohol) weekends AUDIT-C Answer Date Recorded Q1: How often do you have a drink containing alcohol? 4 or more times a week 02/16/2023 Q2: How many drinks containi ng alcohol do you have on a typical day when you are drinking? 1 or 2 Q3: How often do you have si x or more drinks on one occasion? Never 02/16/2023 PHQ-2 Answer Date Recorded Retired Total Score 0 09/02/2019 Abuse Screen Answer Date Recorded Feels Unsafe at Home or Work/School no 07/24/2024 Feels Threatened by Someone no 06/27 Does Anyone Try to Keep You From Having Contact with Others or Doing Things Outside Your Home? no 07/24/2024 Physical Signs of Abuse Present no 07/24/2024 Housing Stability Answer Date Recorded Current Living Arrangements home 01/25 Potentially Unsafe Housing Conditions Not on krupa e 02/16/2023 Disabilities Answer Date Recorded Difficulty Concentrating, Remembering or Making Decisions no 02/16/2023 Difficulty Managing Errands Independently no 02/16/2023 Sex and Gender Information Value Date Recorded Sex Assigned at Not on file Legal Sex Male 1:44 PM EDT Gender Identity Not on file Sexual Orientation Not on file Occupation Industry Job Start Date Job End Date [employer] [place] [employer] Not on file Not on file Not on file documented as of this encounter Miscellaneous Notes * Telephone Encounter - Nidia Snell RN - 02/03/2025 1:03 PM EDT Called pt with results CTA. He verbalizes understanding. * Telephone Encounter - Nidia Snell RN - 02/03/2025 12:28 PM EDT Tried calling pt; no answer and unable to LVM as mailbox not set up. * Telephone Encounter - Gillian Sarkar MD - 02/03/2025 12:21 PM EDT Results were great. His coil is good. No other disease. * Telephone Encounter - Nolvia Hernandez MA - 02/03/2025 9:13 AM EDT Results are in Epic. Please advise. * Telephone Encounter - Kaitlyn Brown RegSched Rep - 02/03/2025 9:10 AM EDT Patient called and LVM requesting a call back regarding CTA results. Patient stated that test had been done a couple of weeks ago and that they were still waiting for results. documented in this encounter Plan of Treatment Upcoming Encounters Date Type Department Care Team (Late st Contact Info) Description 06/02/2025 10:00 AM EST Office Visit [facility] [address] [place] [id number] Gillian Sarkar MD [address] [place] [address] documented as of this encounter Visit Diagnoses Not on filedocumented in this encounter Additional Health Concerns Assessment Noted Time A fall risk assessment has been complete d for the patient 08/27/2018 2:04 PM EST documented as of this encounter Care Teams Collection Development Librarian Relationship Specialty Start Date End Date Alireza Brizuela MD [address] [facility] [address] [place] [address] PCP - General Internal Medicine 12/12/22 documented as of this encounter
--- OUTSIDE RECORDS SUMMARY | 2025-02-18 07:50 | XMS_ITS | Clinical Summary ---
Author Organization [facility] Address [address] [place] [address] Care Team Providers Care Driver'S License Examiner Name Role Phone Alireza Brizuela MD Primary Care Provider Allergies No known active allergies Medications aspirin 81 MG EC tablet Take 1 tablet by mouth Daily. Active vitamin B-12 (CYANOCOBALAMIN) 1000 MCG tablet Take 1 tablet by mouth Daily. Active pantoprazole (PROTONIX) 20 MG EC tablet TAKE 1 TABLET BY MOUTH ONCE DAILY (STOP OMEPRAZOLE) 3 Active tamsulosin (FLOMAX) 0.4 MG capsule 24 hr capsule Take 1 capsule by mouth Daily. 3 Active promethazine (PHENERGAN) 25 MG tabletIndication s:Nausea Take 1 tablet by mouth Every 6 (Six) Hours As Needed for Nausea or Vomiting. 30 tablet 5 4 Active clopidogrel (PLAVIX) 75 MG tablet Take 1 tablet by mouth Daily. 90 tablet 3 5 Active rosuvastatin (CRESTOR) 5 MG tablet Take 1 tablet by mouth once daily 90 tablet 3 5 Active metoprolol tartrate (LOPRESSOR) 50 MG tabletIndication s:Coronary artery abnormality Take 1 tablet by mouth 1 (One) Time for 1 dose. Take 50 mg One (1) Hour Prior to Coronary CTA 1 tablet 5 Active Active Problems Problem Noted Date Diagnosed Date Hypersomnia 03/20/2024 Assessment & Plan (03/20/2024 10:50 AM EDT): Adequate control of depression would likely help. Will refer to [facility] and check Titration study. [facility] Elevated hemoglobin A1c 10/16/2023 Assessment & Plan (10/16/2023 11:35 AM EDT): Hemoglobin A1c is elevated at 6.2. Patient would like to try Ozempic. We also discussed other treatment options, including Zepbound or Wegovy. I would like to talk to Dr. Sarkar first due to patient's history of GI problems, including nausea and constipation. - We will discuss at follow-up visit - Encourage patient to increase physical activity, including walking daily Hyperlipidemia LDL goal <70 06/20/2023 Coronary artery disease invo lving [place] coronary artery of [place] heart with angina pectoris 02/07/2023 Assessment & Plan (10/16/2023 11:30 AM EDT): Coronary artery disease is stable. Continue current treatment regimen. Weight loss. Regular aerobic exercise. Cardiac status will be reassessed in 6 months. -Continue aspirin, Plavix and Crestor at current doses Palpitations 12/12/2022 Assessment & Plan (06/03/2024 5:53 PM EST): No A-fib seen. Assessment & Plan (03/20/2024 10:51 AM EDT): Update holter. May need to restart beta lou or alternative. Check Titration study. Treat depression/anxiety. Assessment & Plan (01/05/2023 4:35 PM EDT): Holter monitor results pending, we will review at next office visit. Assessment & Plan (12/12/2022 2:54 PM EDT): He reports that he feels palpitations very often. He reports an irregular sensation at the base of his neck. EKG at ER showed PVCs. He has had a evaluation in the past as he wore an event monitor for 30 days in July 2020. No afibrillation was noted. Brief atrial tach, 4 beat run of NSVT and occasional PACs. Plan 14-day heart monitor for further evaluation. His symptoms are bit concerning for atrial fibrillation. Fatigue 12/12/2022 Assessment & Plan (03/20/2024 10:49 AM EDT): No chest pain, no shortness or air, minimal and only occasional edema, no syncope. He does continue to have palpitations, with his heart flipping, flopping, and skipping a beat all the time. Palpitations have not worsen since stopping beta lou and fatigue did not improve. Will update holter and do a PSG Titration study. Assessment & Plan (10/16/2023 11:39 AM EDT): Unclear cause. [facility]Y followed at the [facility]. labs ordered by Dr. Sarkar at last office visit and reviewed with patient today. No abnormalities that would indicate cause of fatigue.Dr. Sarkar recommended stopping beta-lou to see if that helps, patient is willing to try that at this time. - Stop bisoprolol - Follow-up in 1 month to reassess Assessment & Plan (12/12/2022 2:55 PM EDT): He reports fatigue and feeling tired every day. The day he was using the chainsaw and he experienced shortness of air he reports that that day he felt weakness. He had labs at the ER that day. He reports feeling tired every day and he has associated this with having COVID twice in the past. Primary hypertension 12/12/2022 Assessment & Plan (12/12/2022 3:13 PM EDT): He was told at the emergency room that he did have hypertension. Blood pressure readings noted as elevated in the ER at [facility] on 12/06/2022. He has been following with a home blood pressure log: blood pressure 152/107, 159/100, 125/93 Monday blood pressure 126/86, 123/88, 116/69 and 145/94. Monday blood pressure 141/96, 111/82. Monday blood pressure 122/87. Today Jiang blood pressure 136/72. Heart rate log shows heart rate 83-102. Blood pressure has been much better controlled over the last 4 days but he is on no blood pressure medication. Plan continue daily blood pressure log at home and bring to follow-up. Will consider need for blood pressure medication and we will give consideration to beta- lou. He is given blood pressure parameters of 110/60-150/90 and encouraged to report blood pressures outside of parameters that are persistent. Bronchospasm 09/05/2019 Major depressive disorder with current active ep isode 02/16/2018 Assessment & Plan (03/20/2024 10:52 AM EDT): Does not appear well controlled but no SI/HI. Refer to [facility] for genetic testing and medication selection/management. Gastroesophageal reflux disease 09/25/2017 Hypothyroidism 09/25/2017 Insomnia 09/25/2017 Mild cognitive disorder 09/25/2017 Assessment & Plan (03/20/2024 10:52 AM EDT): May need BIPAP. Check Titration. Obstructive sleep apnea syndrome 09/25/2017 Assessment & Plan (03/20/2024 10:56 AM EDT): [facility] Will check titrations study. RX Ambien for night of study per patient request- states he can't sleep away from home in a hospital. Shortness of breath 09/25/2017 Assessment & Plan (12/12/2022 2:52 PM EDT): He reports on December 06, 2022 that he was running a chainsaw for about 30 minutes and then he became short of air, weak, tired and presented to the emergency room at [facility] for further evaluation. At the emergency room he had an EKG, chest x-ray, labs including negative troponin. And he was asked to follow-up with cardiology. He comes in today for an ER follow-up visit he denies any chest pain. Reports still short of air with exertion, tired all the time. He is accompanied by his very helpful as he has memory problems. He is encouraged to take his aspirin 81 mg daily and his omeprazole 20 mg daily. Plan stress testing for further evaluation and risk stratification for CAD. Cobalamin deficiency 09/25/2017 BPH associated with nocturia 09/05/2017 Resolved Problems Problem Noted Date Diagnosed Date Resolved Date Coronary artery disease with stable angina pectoris 02/16/2023 06/20/2023 Abnormal nuclear stress test 01/05/2023 06/20/2023 Assessment & Plan (01/19/2023 9:59 AM EDT): Nuclear stress test from 12/21/2022 revealed mild to moderate fully reversible anteroapical area of ischemia, intermediate risk study. Discussed results with patient and in detail. Highly recommended a left heart cath for further evaluation. Patient previously declined heart cath in 2016 that was recommended due to an abnormal stress test. He is hesitant to have a LHC due to a family member passing away of complications during heart cath. Patient is agreeable to have a coronary CTA. 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 Otherwise, cardiac arterial system is grossly normal, right dominant, with scattered calcified and noncalcified plaques. Moderate stenosis of the mid RCA with noncalcified plaque. Otherwise, minimal or no stenosis. Chest pain 01/05/2023 06/20/2023 Assessment & Plan (01/05/2023 4:33 PM EDT): Recommended LHC but patient continues to decline. - Coronary CTA for further evaluation. - Continue aspirin and atorvastatin. Lack of coordination 12/12/2022 023 Assessment & Plan (12/12/2022 3:12 PM EDT): He reports that his balance is off at times, dizzy when changing positions and he feels that he stumbles but he denies any syncope. Plan carotid duplex for further evaluation. Cough 09/05/2019 06/20/2023 Encounters Date Type Department Care Team Description 02/03/2025 Telephone [facility] [address] [place] [phone] Gillian Sarkar MD 12/03/2024 Patient rounding ([facility] only) [facility] [address] [place] [phone] Gillian Sarkar MD 12/02/2024 11:30 AM EDT Office Visit [facility] [address] [place] [address] Gillian Sarkar MD Coronary artery abnormality (Primary Dx); Fistula between aorta and pulmonary artery; Obstructive sleep apnea syndrome 12/02/2024 Travel from Last 3 Months Immunizations Immunization Administration Dates Next Due Pneumococcal Conjugate 13-Valent (PCV13) 020 Family History 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 Relation Name Comments No Known Problems Daughter 1 No Known Problems Daughter 2 Cancer Mother No Known Problems Sister Relation Name Status Comments Daughter 1 Alive Daughter 2 Alive Father (Age 39) fire Mother (Age 78) cancer Sister Alive Social History Tobacco Use Types Packs/Day Years Used Date Smoking Tobacco: Former Cigarettes 2.5 7 1 966 - 1972 Passive Smoke Exposure: Past Smokeless Tobacco: Never Tobacco Cessation:Counseling Given: Yes Alcohol Use Standard Drinks/Week Comments Yes 0 [...] Industry Job Start Date Job End Date [employer] Not on file Not on file Not on file Last Filed Vital Signs Vital Sign Reading Time Taken Comments Blood Pressure 120/78 12/02/2024 11:50 AM EDT Pulse 76 12/02/2024 11:50 AM EDT Temperature 36.8 C (98.3 F) 07/24/2024 7:46 PM EST Respiratory Rate 18 07/24/2024 7:46 PM EST Oxygen Saturation 94% 12/02/2024 11:50 AM EDT Inhaled Oxygen Concentration - - Weight 93 kg (205 lb) 12/02/2024 11:50 AM EDT Height 180.3 cm (5' 11 ) 12/02/2024 11:50 AM EDT Body Mass Index 28.59 12/02/2024 11:50 AM EDT Plan of Treatment Upcoming Encounters Date Type Department Care Team (Late st Contact Info) Description 06/02/2025 10:00 AM EST Office Visit [facility] [address] [place] [phone] Gillian Sarkar MD [address] [place] [address] Health Maintenance Due Date Last Done Comments DIABETIC FOOT EXAM 1960 URINE MICROALBUMIN-CREATININE RATIO (uACR) 1960 COLON CANCER SCREENING 5 YEAR SIGMOIDOSCOPY [address] COLONOGRAPHY 1994 FECAL OCCULT BLOOD TEST 1994 FIT Testing (1 year) 1994 ZOSTER VACCINE (2 of 2) 02/10/2017 12/16/2016 (Decli melo) DIABETIC EYE EXAM 02/02/2018 02/02/2017 Pneumococcal Vaccine 50+ (2 of 2 - PPSV23) 10/28/2019 09/02/2019 ANNUAL WELLNESS VISIT 01/01/2020 12/31/2018 (Declined), 12/16/2016 (Declined) COLOGUARD 09/06/2022 09/07/2019 COLORECTAL CANCER SCREENING 09/06/2022 TDAP/TD VACCINES (2 - Td or Tdap) 10/25/2023 10/24/2013 (Patient-Reported (Performed Externally)) RSV Vaccine - Adults (1 - 1-dose 75+ series) 01/15/2024 COVID-19 Vaccine ( season) 2024 09/02/2020, 08/05/2020 HEMOGLOBIN A1C 03/21/2024 09/19/2023, 02/16/2023 LIPID PANEL 09/19/2024 09/20/2023, 12/11/2022, 02/16/2023, Additional history exists INFLUENZA VACCINE 03/26/2025 09/02/2019 (Declined) HEPATITIS C SCREENING Addressed 12/16/2016 (Decline d) Overridden with the intention of not completing the topic Medical Devices Implanted Type Area Flatwork Catcher Device Identifier Shelf Expiration Date Model / Serial / Lot Coil Fram Axium Prime 3d Detach 5mm 20cm - [id number] Implanted:Qty: 1 on 02/16/2023 by Nazario Chang MD at [facility] Implant [employer] 08/30/2023 [id number] / / [id number] Coil Fram Axium Prime 3d Detach 3.5mm 10cm - [id number] Implanted:Qty: 1 on 02/16/2023 by Nazario Chang MD at [facility] Implant [employer] 02/03/2024 [id number] / / [id number] Coil Axium Prime 3d Sys 4mm 12cm - [id number] Implanted:Qty: 1 on 02/16/2023 by Nazario Chang MD at [facility] Implant EV3 A [employer] 10/09/2024 [id number] / / [id number] Coil Axium Prime 3d Xsft 2mm 4cm - [id number] Implanted:Qty: 1 on 02/16/2023 by Nazario Chang MD at [facility] Implant [employer] 02/08/2025 [id number] / / [id number] Coil Axium Prime Bare 3d Xsft 1.5mm 4cm - [id number] Implanted:Qty: 1 on 02/16/2023 by Nazario Chang MD at [facility] Implant [employer] 03/20/2025 [id number] / / [id number] Coil Axium Prime Bare 3d Xsft 1mm 4cm - [id number] Implanted:Qty: 1 on 02/16/2023 by Nazario Chang MD at [facility] Implant [employer] 05/20/2025 [id number] / / [id number] Coil Axium Prime 3d Xsft 3.5mm 10cm - [id number] Implanted:Qty: 1 on 02/16/2023 by Nazario Chagn MD at [facility] Implant [employer] 05/10/2025 [id number] / / [id number] Coil Axium Prime 3d Xsft 2.5mm 6cm - [id number] Implanted:Qty: 1 on 02/16/2023 by Nazario Chang MD at [facility] Implant [employer] 07/02/2025 [id number] / / [id number] Coil Axium Prime 3d Xsft 2.5mm 6cm - [id number] Implanted:Qty: 1 on 02/16/2023 by Nazario Chang MD at [facility] Implant [employer] 05/30/2025 [id number] / / [id number] Coil Axium Prime 3d Xsft 2.5mm 6cm - [id number] Implanted:Qty: 1 on 02/16/2023 by Nazario Chang MD at [facility] Implant [employer] 07/02/2025 [id number] / / [id number] Coil Fram Axium Prime 3d Detach 4mm 15cm - [id number] Implanted:Qty: 1 on 02/16/2023 by Nazario Chang MD at [facility] Implant [employer] 02/02/2024 [id number] / / [id number] Coil Fram Axium Prime 3d Detach 4mm 15cm - [id number] Implanted:Qty: 1 on 02/16/2023 by Nazario Chang MD at [facility] Implant [employer] 02/04/2024 [id number] / / [id number] Coil Fram Axium Prime 3d Detach 3mm 10cm - [id number] Implanted:Qty: 1 on 02/16/2023 by Nazario Chang MD at [facility] Implant [employer] 07/29/2023 [id number] / / [id number] Coil Fram Axium Prime 3d Detach 5mm 20cm - [id number] Implanted:Qty: 1 on 02/16/2023 by Nazario Chang MD at [facility] Implant [employer] 08/30/2023 [id number] / / [id number] Coil Fram Axium Prime 3d Detach 4mm 12cm - [id number] Implanted:Qty: 1 on 02/16/2023 by Nazario Chang MD at [facility] Implant [employer] 01/18/2024 [id number] / / [id number] Coil Fram Axium Prime 3d Detach 3mm 10cm - [id number] Implanted:Qty: 1 on 02/16/2023 by Nazario Chang MD at [facility] Implant [employer] 07/29/2023 [id number] / / [id number] Coil Fram Axium Prime 3d Detach 3mm 10cm - [id number] Implanted:Qty: 1 on 02/16/2023 by Nazario Chang MD at [facility] Implant [employer] 02/01/2024 [id number] / / [id number] Coil Fram Axium Prime 3d Detach 3.5mm 10cm - [id number] Implanted:Qty: 1 on 02/16/2023 by Nazario Chang MD at [facility] Implant [employer] 02/03/2024 [id number] / / [id number] Stnt Cornry Rx Xience/Skypoin t Rapdxng 3.5x18mm - [id number] Implanted:Qty: 1 on 02/16/2023 by Nazario Chang MD at [facility] [employer] 09/22/2025 [id number] / / [id number] Procedures Procedure Name Priority Date/Time Associated Diagnosis Comments CT ANGIOGRAM CORONARY Routine 01/21/2025 Coronary artery abnormality LIPID PANEL Routine 09/20/2023 Hyperlipidemia LDL goal <70 Coronary artery disease involving [place] coronary artery of [place] heart with angina pectoris DM (diabetes mellitus), type 2 with complications Other fatigue HEMOGLOBIN A1C Routine 09/19/2023 Hyperlipidemia LDL goal <70 Coronary artery disease involving [place] coronary artery of [place] heart with angina pectoris DM (diabetes mellitus), type 2 with complications Other fatigue SCANNED - COLOGUARD 09/07/2019 from Last 3 Months or Most Recently Relevant to Health Maintenance Results * CT Angiogram Coronary (01/21/2025) Anatomical Region Laterality Modality Vascular, Chest N/A Computed Tomogra phy Gillian Sarkar MD IMG CT ORDERABLES Final Resu lt * Lipid Panel (09/20/2023) Blood Gillian Sarkar MD LAB BLOOD ORDERABLES Final R esult Performing Organization Address City/[facility]/ZIP Co de Phone Number [facility]
[address] [place] [address], * Hemoglobin A1c (09/19/2023) Blood Gillian Sarkar MD LAB BLOOD ORDERABLES Final R esult Performing Organization Address City/[facility]/ZIP Co de Phone Number [facility]
[address] [place] [address], * SCANNED - COLOGUARD (09/07/2019) [facility] LAB BLOOD ORDERABLES Final Re sult from Last 3 Months or Most Recently Relevant to Health Maintenance Insurance MEDICARE A & B Advance Directives * CPR (Attempt to Resuscitate) (Latest Code Status on File) Date Activated Date Inactivated Comments 06/20/2023 5:30 PM 06/20/2023 10:29 PM Question Answer Comments Code Status (Patient has no pulse and is not breathing): CPR (Attempt to Resuscitate) Medical Interventions (Patie nt has pulse or is breathing): Full Support Care Teams Driver'S License Examiner Relationship Specialty Start Date End Date Alireza Brizuela MD [address] [facility] [address] [facility] [address] [place] [address] PCP - General Internal Medicine 12/12/22
--- OUTSIDE RECORDS SUMMARY | 2025-02-18 07:50 | XMS_ITS | Encounter Summary ---
Author Organization Healthcare Address [address] [id number] Care Team Providers Care Propulsion Systems Engineer Name Role Phone Alireza Brizuela MD Primary Care Provider [phone] Encounter Details Date Type Department Care Team (Latest Contact Info) Description 2025 Travel Social History Tobacco Use Types Packs/Day [...] on filedocumented in this encounter Care Teams Propulsion Systems Engineer Relationship Specialty Start Date End Date Alireza Brizuela MD [address] [facility] [address] [facility] [place] [address] PCP - General 11/06/20 documented as of this encounter
--- NOTE | 2025-02-18 08:00 | CA_ITS ---
FINAL REPORT CLINICAL HISTORY: left leg swelling FINDINGS: DUPLEX VENOUS SONOGRAPHY OF THE LEFT LOWER EXTREMITY Multiple transverse and longitudinal scans were performed of the femoropopliteal deep venous system, with augmentation and compression maneuvers. FINDINGS: Normal phasic flow was noted in the visualized deep venous system. No intraluminal increased echogenicity is noted to suggest thrombus. There is normal compression and augmentation of the venous structures. No abnormal venous collaterals are seen. IMPRESSION: No evidence of deep venous thrombosis of the left lower extremity. Reviewed, Interpreted and Dictated by Landy Ng MD Transcribed by Anne De Leon Authenticated and . [facility]
== END 2025-02-18 23:59 | disposition home or self-care (01) ==
LOC: RT 07:47
PROVIDERS: PCP Internal Medicine; Visit Provider Internal Medicine
DX: R60.0 Localized edema (principal)
CPT/HCPCS: 93971

== ENCOUNTER 2025-04-29 08:22 | Outpatient (CLI) | payer MEDICARE, OTHER, SELFPAY ==
--- OUTSIDE RECORDS SUMMARY | 2025-04-29 08:26 | XMS_ITS ---
Author Organization Unknown ENCOUNTERS Encounter Performer Location Date Diagnosis Diagnosis Status Emergency Stepan Desouza [place] [id number] [facility] [address] [place] [address] [id number] AURELIA Emergency [facility] [address] [facility] [address] [place] [id number] [facility] Emergency [address] [place] [address] [id number] [facility] Emergency [address] [place] [address] [id number] AURELIA *Note: Encounters from your own facility or health system may be excluded. Allergies, Adverse Reactions, Alerts Allergen Type Severity Identification Date Medications Name Date Quantity Days Supplied GPI Number
--- OUTSIDE RECORDS SUMMARY | 2025-04-29 08:26 | XMS_ITS | Encounter Summary ---
Author Organization [facility] Address [address] [place] [id number] Care Team Providers Care Ethyl Blender Name Role Phone Alireza Brizuela MD Primary Care Provider [phone] Encounter Details Date Type Department Care Team (Late Contact Info) Description 05/01/2019 Telephone [facility] FAMILY MEDICINE [address] [facility] [place] [address] Julio Barnard MD [address] [facility] [place] [place] [address] Social History Tobacco Use Types [...] Description 06/02/2025 10:00 AM EST Office Visit [facility] CARDIOLOGY [address] [place] [id number] Gillian Sarkar MD [address] [place] [address] documented as of this encounter Visit [...] documented as of this encounter Care Teams Ethyl Blender Relationship Specialty Start Date End Date Alireza Brizuela MD [facility] [address] [place] [address] PCP - General Internal Medicine 12/12/22 documented as of this encounter
--- OUTSIDE RECORDS SUMMARY | 2025-04-29 08:27 | XMS_ITS | Clinical Summary ---
Author Organization [facility] Address [address] [place] [address] Care Team Providers Care Barkeep Name Role Phone Alireza Brizuela MD Primary Care Provider [phone] Allergies No known active allergies Medications aspirin [...] depression would likely help. Will refer to [facility] and check Titration study. Normally TORREY followed [...] <70 06/20/2023 Coronary artery disease invo lving [place] coronary artery of [place] heart with angina pectoris 02/07/2023 Assessment & [...] EDT): Unclear cause. [facility] followed at the [place]. labs ordered by Dr. Sarkar at last [...] noted as elevated in the ER at [facility] on 12/06/2022. He has been [...] well controlled but no SI/HI. Refer to [facility] for genetic testing and medication selection/management. Gastroesophageal [...] and presented to the emergency room at [facility] for further evaluation. At the [...] Type Department Care Team Description 02/03/2025 Telephone [facility] CARDIOLOGY [address] [place], [place] [address] Gillian Sarkar MD from Last 3 Months Immunizations Immunization Administration [...] Job Start Date Job End Date [employer] [place] Not on file Not on file Not [...] [facility] CARDIOLOGY [address] [place] [id number] Gillian Sarkar MD [address] [place] [address] Health Maintenance Due Date Last Done Comments DIABETIC FOOT EXAM 1960 URINE MICROALBUMIN-CREATININE RATIO (uACR) 1960 COLON CANCER SCREENING 5 YEAR SIGMOIDOSCOPY [address] COLONOGRAPHY 1994 FECAL OCCULT BLOOD TEST 1994 FIT Testing (1 year) 1994 ZOSTER VACCINE (2 of 2) 02/10/2017 12/16/2016 (Decli melo) DIABETIC EYE EXAM 02/02/2018 02/02/2017 Pneumococcal Vaccine 50+ (2 of 2 - PPSV23, PCV20, or PCV21) 10/28/2019 09/02/2019 ANNUAL WELLNESS VISIT 01/01/2020 12/31/2018 (Declined), 12/16/2016 (Declined) COVID-19 Vaccine (3 - Moderna risk series) 09/30/2020 09/02/2020, 08/05/2020 COLOGUARD 09/06/2022 09/07/2019 COLORECTAL CANCER SCREENING 09/06/2022 TDAP/TD VACCINES (2 - Td or Tdap) 10/25/2023 10/24/2013 (Patient-Reported (Performed Externally)) RSV Vaccine - Adults (1 - 1-dose 75+ series) 01/15/2024 HEMOGLOBIN A1C 03/21/2024 09/19/2023, 02/16/2023 LIPID PANEL 09/19/2024 09/20/2023, 12/11/2022, 02/16/2023, Additional history exists INFLUENZA VACCINE 01/24/2025 09/02/2019 (Declined) HEPATITIS C SCREENING Addressed 12/16/2016 (Decline d) Overridden with the intention of not completing the topic Medical Devices Implanted Type Area Palaeontologist Device Identifier Shelf Expiration Date Model / Serial / Lot Coil Fram Axium Prime 3d Detach 5mm 20cm - [id number] Implanted:Qty: 1 on 02/16/2023 by Nazario Chang MD at [facility] Implant [employer] 08/30/2023 [id number] / / [id number] Coil Fram Axium Prime 3d Detach 3.5mm 10cm - [id number] Implanted:Qty: 1 on 02/16/2023 by Nazario Chang MD at [facility] Implant [employer] 02/03/2024 [id number] / / [id number] Coil Axium Prime 3d Sys 4mm 12cm - [id number] Implanted:Qty: 1 on 02/16/2023 by Nazario Chang MD at [facility] Implant [employer]3 [employer] 10/09/2024 [id number] / / [id number] Coil Axium Prime 3d Xsft 2mm 4cm - [id number] Implanted:Qty: 1 on 02/16/2023 by Nazario Chang MD at [facility] Implant [employer] 02/08/2025 [id number] / / [id number] Coil Axium Prime Bare 3d Xsft 1.5mm 4cm - [id number] Implanted:Qty: 1 on 02/16/2023 by Nazario Chang MD at [facility] Implant [employer] 03/20/2025 [id number] / / [id number] Coil Axium Prime Bare 3d Xsft 1mm 4cm - [id number] Implanted:Qty: 1 on 02/16/2023 by Nazario Chang MD at [facility] Implant [employer] 05/20/2025 [id number] / / [id number] Coil Axium Prime 3d Xsft 3.5mm 10cm - [id number] Implanted:Qty: 1 on 02/16/2023 by Nazario Chang MD at [facility] Implant [employer] 05/10/2025 [id number] / / [id number] Coil Axium Prime 3d Xsft 2.5mm 6cm - [id number] Implanted:Qty: 1 on 02/16/2023 by Nazario Chang MD at [facility] Implant [employer] 07/02/2025 [id number] / / [id number] Coil Axium Prime 3d Xsft 2.5mm 6cm - [id number] Implanted:Qty: 1 on 02/16/2023 by Nazario Chang MD at [facility] Implant [employer] 05/30/2025 [id number] / / [id number] Coil Axium Prime 3d Xsft 2.5mm 6cm - [id number] Implanted:Qty: 1 on 02/16/2023 by Nazario Chang MD at [facility] Implant [employer] 07/02/2025 [id number] / / [id number] Coil Fram Axium Prime 3d Detach 4mm 15cm - [id number] Implanted:Qty: 1 on 02/16/2023 by Nazario Chang MD at [facility] Implant [employer] 02/02/2024 [id number] / / [id number] Coil Fram Axium Prime 3d Detach 4mm 15cm - [id number] Implanted:Qty: 1 on 02/16/2023 by Nazario Chang MD at [facility] Implant [employer] 02/04/2024 [id number] / / [id number] Coil Fram Axium Prime 3d Detach 3mm 10cm - [id number] Implanted:Qty: 1 on 02/16/2023 by Nazario Chang MD at [facility] Implant [employer] 07/29/2023 [id number] / / [id number] Coil Fram Axium Prime 3d Detach 5mm 20cm - [id number] Implanted:Qty: 1 on 02/16/2023 by Nazario Chang MD at [facility] Implant [employer] 08/30/2023 [id number] / / [id number] Coil Fram Axium Prime 3d Detach 4mm 12cm - [id number] Implanted:Qty: 1 on 02/16/2023 by Nazario Chang MD at [facility] Implant [employer] 01/18/2024 [id number] / / [id number] Coil Fram Axium Prime 3d Detach 3mm 10cm - [id number] Implanted:Qty: 1 on 02/16/2023 by Nazario Chang MD at [facility] Implant [employer] 07/29/2023 [id number] / / [id number] Coil Fram Axium Prime 3d Detach 3mm 10cm - [id number] Implanted:Qty: 1 on 02/16/2023 by Nazario Chang MD at [facility] Implant [employer] 02/01/2024 [id number] / / [id number] Coil Fram Axium Prime 3d Detach 3.5mm 10cm - [id number] Implanted:Qty: 1 on 02/16/2023 by Nazario Chang MD at [facility] Implant [employer] 02/03/2024 [id number] / / [id number] Stnt Cornry Rx Xience/Skypoin t Rapdxng 3.5x18mm - [id number] Implanted:Qty: 1 on 02/16/2023 by Nazario Chang MD at [facility] GONZALEZ VASCULAR 09/22/2025 [id number] / / [id number] Procedures Procedure Name Priority Date/Time Associated Diagnosis Comments LIPID PANEL Routine 09/20/2023 Hyperlipidemia LDL goal <70 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
[address] [place] [address], * Hemoglobin A1c (09/19/2023) Blood Gillian Sarkar MD LAB BLOOD ORDERABLES Final R esult [facility]
[address] [place] [address], * SCANNED - COLOGUARD (09/07/2019) [facility] LAB BLOOD ORDERABLES Final Re sult from [...] or is breathing): Full Support Care Teams Barkeep Relationship Specialty Start Date End Date Alireza Brizuela MD [address] [facility] [address] [place] [address] PCP - General Internal Medicine 12/12/22
--- NOTE | 2025-04-29 08:30 | FL_ITS ---
FINAL REPORT CLINICAL HISTORY: eval and treat trouble swallowing..feels like things are sticking 705.49 dap 0.40 fluoro time FINDINGS: ESOPHAGRAM HISTORY: Dysphagia, feels like things are sticking in throat. PROCEDURE: The patient ingested barium. Effervescent crystals were also administered. Spot and overhead films were obtained. 46 images were saved. FINDINGS: There is a probable small sliding-type hiatal hernia. There is no gastroesophageal reflux demonstrated. There is very mild esophageal dysmotility. 13 mm barium tablet passes easily through the esophagus and into the stomach. IMPRESSION: Small sliding-type hiatal hernia. Very mild esophageal dysmotility. Fluoroscopy time: 0.40 minutes Fluoro dose: 705.49 DAP in uGym2 Reviewed, Interpreted and Dictated by Landy Ng MD Transcribed by Zo Bowie PA-C Authenticated and [facility]
[2025-04-29] MEDS: BARIUM SULFATE (E-Z-HD 340GM);135ML BOTTLE 135 ML PO (09:22)
[2025-04-29] MEDS: E-Z-GASII EFFERVESCENT GRANULES;1PK 1 EACH PO (09:22)
[2025-04-29] MEDS: BARIUM SULFATE(E-Z-AC);750ML BOTTLE 750 ML PO (09:22)
== END 2025-04-29 23:59 | disposition home or self-care (01) ==
LOC: RAD 08:24
PROVIDERS: PCP Internal Medicine; Visit Provider Nurse Practitioner
DX: K44.9 Diaphragmatic hernia without obstruction or gangrene (principal); K22.4 Dyskinesia of esophagus; B37.81 Candidal esophagitis; J38.4 Edema of larynx
CPT/HCPCS: 74220

== ENCOUNTER 2025-06-04 10:30 | Outpatient (CLI) | payer MEDICARE, OTHER, SELFPAY ==
[2025-06-04 11:15] LABS: Blood Urea Nitrogen 20 mg/dl (9-20); Creatinine,Serum 1.20 mg/dl (0.66-1.25); Estimated Glomerular Filt Rate 59 ml/min (>60); GFR (African American) 71 ML/MIN (>60)
== END 2025-06-04 23:59 | disposition home or self-care (01) ==
LOC: LAB 10:32
PROVIDERS: PCP Internal Medicine; Visit Provider Student in an Organized Health Care Education/Training Program
DX: R09.A2 Foreign body sensation, throat (principal); R13.10 Dysphagia, unspecified
CPT/HCPCS: 36415; 82565; 84520

== ENCOUNTER 2025-06-06 09:07 | Outpatient (CLI) | payer MEDICARE, OTHER, SELFPAY ==
--- NOTE | 2025-06-06 09:30 | CT_ITS ---
FINAL REPORT TECHNIQUE: Thin section axial CT images with coronal and sagittal reformats were performed after the administration of IV contrast. This study was performed with techniques to keep radiation doses as low as reasonably achievable (ALARA). Individualized dose reduction techniques using automated exposure control or adjustment of mA and/or kV according to the patient''s size were employed. CLINICAL HISTORY: difficulty swallowing x 1 yr COMPARISON: None FINDINGS: Cervical vascularity is adequately opacified. No definite adenopathy or mass lesion is present . There is no evidence of an aberrant subclavian artery. Salivary glands are normal. Larynx is unremarkable. Thyroid gland is unremarkable. The paranasal sinuses are well aerated. There are mild changes of centrilobular emphysema. IMPRESSION: No definite mass or adenopathy identified. Reviewed, Interpreted and Dictated by Griffin Pham MD Transcribed by Anne De Leon Authenticated and [facility]
[2025-06-06] MEDS: SODIUM CHLORIDE 0.9% 10ML SYR (RAD ONLY) 10 ML IV (09:36)
[2025-06-06] MEDS: IOPAMIDOL-370 (76%);100ML BOTTLE 75 ML IV (09:36)
== END 2025-06-06 23:59 | disposition home or self-care (01) ==
LOC: RAD 09:09
PROVIDERS: PCP Internal Medicine; Visit Provider Student in an Organized Health Care Education/Training Program
DX: R09.A2 Foreign body sensation, throat (principal); R13.10 Dysphagia, unspecified
CPT/HCPCS: 70491; Q9967